=== PATIENT | male | born 1960 | race Caucasian/White ===

== ENCOUNTER 2024-07-28 11:23 | Inpatient (IN) | payer SELFPAY ==
--- NOTE | 2024-07-28 11:33 | ERPHSYRPT ---
- History of Present Illness Time Seen by Provider: 07/28/24 11:33 Source: patient, EMS Exam Limitations: no limitations Physician History: This is an obese 64-year-old white male patient who was brought in by the paramedics secondary to cough and shortness of breath that has been present for 1-1/2 weeks and symptoms were worse in the last 2 days. Patient felt his heart racing. He denies chest pain. Patient has never had a diagnosis of atrial fibrillation and is not on any anticoagulation therapy. Patient is a daily smoker of tobacco cigarettes. Patient has a history of hyperlipidemia, hypertension, diabetes, anxiety, depression, and peripheral neuropathy. Patient's heart rate is 144 bpm and is in a atrial fibrillation pattern. Timing/Duration: week(s) (1-1/2 weeks), worse (Symptoms of cough and shortness of breath worsening over the last 2 days) Severity of Dyspnea-Max: moderate Severity of Dyspnea-Current: moderate Possible Cause: no prior episodes Modifying Factors: Improves With: coughing Associated Symptoms: anxiety, cough, No chest pain/discomfort Allergies/Adverse Reactions: tramadol Adverse Reaction (Mild, Verified 09/04/16 06:21) nausea/vomiting Home Medications: Metoprolol Tartrate 25 mg [Lopressor 25MG Tab] 25 mg PO DAILY 07/09/13 [History] Hydrocodone/Acetaminophen [[place] 7.5-325 Tablet] 1 tab PO DAILY 04/10/16 [Histo ry] Trazodone HCl 100 mg PO QHS PRN 04/10/16 [History] Gabapentin 1 tab PO TID 09/03/16 [History] HYDROcodone bitartrate [Zohydro ER] 1 tab PO DAILY 09/03/16 [History] Liraglutide [Victoza 2-James] 1.8 mg SQ DAILY 09/03/16 [History] Losartan Potassium 50 mg [Cozaar 50 MG] 1 tab PO QAM 09/03/16 [History] Simvastatin 1 tab PO QHS 09/03/16 [History] Sitagliptin Phosphate [Januvia] 1 tab PO QAM 09/03/16 [History] buPROPion HCL [Bupropion HCl Sr] 1 tab PO BID 09/03/16 [History] hydroCHLOROthiazide [Hydrochlorothiazide] 1 tab PO DAILY 09/03/16 [History] Hx Influenza Vaccination/Date Given: Yes (fall 2015) Hx Pneumococcal Vaccination/Date Given: No Travel Risk - International Travel Have you traveled outside of the country in past 3 weeks: No - Emerging Infectious Disease Are you exhibiting symptoms associated with any current EIDs: Yes Symptoms: Cough: New Onset, Shortness of Breath - Review of Systems Constitutional: No Symptoms Eyes: No Symptoms Ears, Nose, & Throat: No Symptoms Respiratory: Cough, Dyspnea, Dyspnea on Exertion ([place]) Cardiac: Palpitations, No Chest Pain Abdominal/Gastrointestinal: No Symptoms Genitourinary Symptoms: No Symptoms Musculoskeletal: No Symptoms Skin: No Symptoms Neurological: No Symptoms Psychological: No Symptoms Endocrine: No Symptoms Hematologic/Lymphatic: No Symptoms Immunological/Allergic: No Symptoms All Other Systems: Reviewed and Negative - Past Medical History Pertinent Past Medical History: Yes Neurological History: Peripheral Neuropathy, Other ENT History: No Pertinent History Cardiac History: High Cholesterol, Hypertension Respiratory History: No Pertinent History Endocrine Medical History: Diabetes Type II Musculoskeletal History: Arthritis, Other GI Medical History: No Pertinent History History: No Pertinent History Psycho-Social History: No Pertinent History Male Reproductive Disorders: No Pertinent History Other Medical History: arthritis in bilateral wrist, surgery on left wrist last December to remove tendon, degenerative disk L3,4,5, Torn Right minisicus with repair and then a second surgery. has a headache daily seeing neurologist for that - Past Surgical History Past Surgical History: Yes Neuro Surgical History: No Pertinent History Cardiac: No Pertinent History Respiratory: No Pertinent History Gastrointestinal: No Pertinent History Genitourinary: No Pertinent History Musculoskeletal: Other Male Surgical History: No Pertinent History Other Surgical History: torn right miniscus repaired - Social History Smoking Status: Current every day smoker How long have you smoked: 41 yrs Exposure to second hand smoke: No Drug Use: none Patient Lives Alone: No - Nursing Vital Signs Nursing Vital Signs: Initial Vital Signs Temperature 97.6 F 07/28/24 11:25 Pulse Rate 148 H 07/28/24 11:25 Respiratory Rate 22 07/28/24 11:25 Blood Pressure 164/124 07/28/24 11:25 O2 Sat by Pulse Oximetry 97 07/28/24 11:25 Pain Scale Pain Intensity 0 - Physical Exam General Appearance: mild distress, alert, anxiety Eye Exam: PERRL/EOMI, eyes nml inspection Ears, Nose, Throat Exam: hearing grossly normal, normal ENT inspection, normal pharynx Neck Exam: normal inspection, non-tender, supple, full range of motion Respiratory Exam: airway intact, rhonchi (Right side), No chest tenderness, No respiratory distress Cardiovascular/Chest Exam: tachycardia, irregular Abdominal/Gastrointestinal Exam: soft, normal bowel sounds, No tenderness Rectal Exam: not done Extremity Exam: non-tender, normal range of motion, normal inspection Neurologic Exam: alert, oriented x 3, cooperative, debt recovery officer II-XII nml as tested, nml cerebellar function, nml station & gait, sensation nml Skin Exam: normal color, warm, dry Lymphatic Exam: No adenopathy SpO2 Interpretation: normal O2 Delivery: Room Air - Course Nursing assessment & vital signs reviewed: Yes EKG Interpreted by Me: RATE (144), A-fib, NORMAL AXIS, prolonged QT interval, NORMAL QRS, Other (No acute ischemia. QTc is 489) Ordered Tests: Active Orders 24 hr Category Date Time Status EKG-ER Only STAT Care 07/28/24 11:34 Active IV Insertion STAT Care 07/28/24 11:34 Active Pulse Oximetry (ED) STAT Care 07/28/24 11:34 Active CHEST 1 VIEW (PORTABLE) Stat Exams 07/28/24 12:13 Completed CBC W DIFF Stat Lab 07/28/24 11:50 Completed CMP Stat Lab 07/28/24 11:50 Completed D-DIMER QUANTITATIVE Stat Lab 07/28/24 11:50 Received MAGNESIUM Stat Lab 07/28/24 11:50 Completed MAGNESIUM Stat Lab 07/28/24 11:50 Completed MONO SCREEN Stat Lab 07/28/24 11:50 Completed NT PRO BNPII Stat Lab 07/28/24 11:50 Completed PROTIME WITH INR Stat Lab 07/28/24 11:50 Received TROPONIN Q4H Lab 07/28/24 11:50 Completed TROPONIN Q4H Lab 07/28/24 17:15 Ordered TROPONIN Q4H Lab 07/28/24 21:15 Ordered Medication Summary Discontinued Medications Generic Name Dose Route Start Last Admin Trade Name Freq PRN Reason Stop Dose Admin Diltiazem HCl 25 mg 07/28/24 11:52 07/28/24 11:58 Diltiazem Hcl Iv 5 Mg/Ml Vial IV 07/28/24 11:53 25 mg STAT ONE Administration Diltiazem HCl Confirm 07/28/24 11:57 Diltiazem Hcl Iv 5 Mg/Ml Vial Administered 07/28/24 11:58 Dose 50 mg IV .STK-MED ONE Furosemide 40 mg 07/28/24 13:01 07/28/24 13:05 Furosemide 40 Mg/4 Ml Vial IV 07/28/24 13:02 40 mg STAT ONE Administration Furosemide Confirm 07/28/24 13:05 Furosemide 40 Mg/4 Ml Vial Administered 07/28/24 13:06 Dose 40 mg .ROUTE .STK-MED ONE Lab/Rad Data: Laboratory Result Diagrams 07/28/24 11:50 07/28/24 11:50 Laboratory Results 07/28/24 07/28/24 07/28/24 Range/Units 12:18 11:50 11:50 WBC (4.23-9.07) x10^3/uL RBC (4.63-6.08) x10^6/uL Hgb (13.7-17.5) g/dL Hct (40.1-51.0) % MCV (79.0-92.2) fL MCH (25.7-32.2) pg MCHC (32.3-36.5) g/dL RDW (11.6-14.4) % Plt Count (163-337) x10^3/uL MPV (9.4-12.4) fL Gran % (34.0-67.9) % Immature Gran % (Auto) (0.001-0.429) % Nucleat RBC Rel Count (0.00-0.2) % Eos # (Auto) (0.04-0.54) x10^3/uL Immature Gran # (Auto) (0.001-0.031) x10^3u/L Absolute Lymphs (auto) (1.32-3.57) x10^3/uL Absolute Monos (auto) (0.30-0.82) x10^3/uL Absolute Nucleated RBC (0.00-0.012) x10^3u/L Lymphocytes % (21.8-53.1) % Monocytes % (5.3-12.2) % Eosinophils % (0.8-7.0) % Basophils % (0.2-1.2) % Absolute Granulocytes (1.78-5.38) x10^3/uL Basophils # (0.01-0.08) x10^3/uL Sodium (135-145) mmol/L Potassium (3.5-5.1) mmol/L Chloride (98-107) mmol/L Carbon Dioxide (22-30) mmol/L Anion Gap (5-15) MEQ/L BUN (9-20) mg/dL Creatinine (0.66-1.25) mg/dL Estimated GFR ML/MIN Glucose (74-106) mg/dL Calcium (8.4-10.2) mg/dL Magnesium 2.1 (1.6-2.3) mg/dL Total Bilirubin (0.2-1.3) mg/dL AST (17-59) U/L ALT (0-50) U/L Alkaline Phosphatase (38-126) U/L Troponin I < 0.012 (0.000-0.033) ng/mL NT-Pro-B Natriuret Pep (<300) pg/mL Serum Total Protein (6.3-8.2) g/dL Albumin (3.5-5.0) g/dL Monoscreen (NEGATIVE) Influenza Type A Ag NEGATIVE (NEGATIVE) Influenza Type B Ag NEGATIVE (NEGATIVE) RSV (PCR) NEGATIVE (NEGATIVE) SARS-CoV-2 (PCR) POSITIVE A (NEGATIVE) 07/28/24 07/28/24 07/28/24 Range/Units 11:50 11:50 11:50 WBC (4.23-9.07) x10^3/uL RBC (4.63-6.08) x10^6/uL Hgb (13.7-17.5) g/dL Hct (40.1-51.0) % MCV (79.0-92.2) fL MCH (25.7-32.2) pg MCHC (32.3-36.5) g/dL RDW (11.6-14.4) % Plt Count (163-337) x10^3/uL MPV (9.4-12.4) fL Gran % (34.0-67.9) % Immature Gran % (Auto) (0.001-0.429) % Nucleat RBC Rel Count (0.00-0.2) % Eos # (Auto) (0.04-0.54) x10^3/uL Immature Gran # (Auto) (0.001-0.031) x10^3u/L Absolute Lymphs (auto) (1.32-3.57) x10^3/uL Absolute Monos (auto) (0.30-0.82) x10^3/uL Absolute Nucleated RBC (0.00-0.012) x10^3u/L Lymphocytes % (21.8-53.1) % Monocytes % (5.3-12.2) % Eosinophils % (0.8-7.0) % Basophils % (0.2-1.2) % Absolute Granulocytes (1.78-5.38) x10^3/uL Basophils # (0.01-0.08) x10^3/uL Sodium 142 (135-145) mmol/L Potassium 4.0 (3.5-5.1) mmol/L Chloride 108 H (98-107) mmol/L Carbon Dioxide 29 (22-30) mmol/L Anion Gap 9.2 (5-15) MEQ/L BUN 16 (9-20) mg/dL Creatinine 0.87 (0.66-1.25) mg/dL Estimated GFR 96.4 ML/MIN Glucose 115 H (74-106) mg/dL Calcium 8.9 (8.4-10.2) mg/dL Magnesium 2.1 (1.6-2.3) mg/dL Total Bilirubin 0.60 (0.2-1.3) mg/dL AST 42 (17-59) U/L ALT 44 (0-50) U/L Alkaline Phosphatase 66 (38-126) U/L Troponin I (0.000-0.033) ng/mL NT-Pro-B Natriuret Pep 1240 (<300) pg/mL Serum Total Protein 6.7 (6.3-8.2) g/dL Albumin 3.8 (3.5-5.0) g/dL Monoscreen NEGATIVE (NEGATIVE) Influenza Type A Ag (NEGATIVE) Influenza Type B Ag (NEGATIVE) RSV (PCR) (NEGATIVE) SARS-CoV-2 (PCR) (NEGATIVE) 07/28/24 Range/Units 11:50 WBC 9.0 (4.23-9.07) x10^3/uL RBC 5.01 (4.63-6.08) x10^6/uL Hgb 15.3 (13.7-17.5) g/dL Hct 46.6 (40.1-51.0) % MCV 93.0 H (79.0-92.2) fL MCH 30.5 (25.7-32.2) pg MCHC 32.8 (32.3-36.5) g/dL RDW 12.8 (11.6-14.4) % Plt Count 213 (163-337) x10^3/uL MPV 10.1 (9.4-12.4) fL Gran % 68.9 H (34.0-67.9) % Immature Gran % (Auto) 0.2 (0.001-0.429) % Nucleat RBC Rel Count 0.0 (0.00-0.2) % Eos # (Auto) 0.19 (0.04-0.54) x10^3/uL Immature Gran # (Auto) 0.02 (0.001-0.031) x10^3u/L Absolute Lymphs (auto) 1.61 (1.32-3.57) x10^3/uL Absolute Monos (auto) 0.91 H (0.30-0.82) x10^3/uL Absolute Nucleated RBC 0.00 (0.00-0.012) x10^3u/L Lymphocytes % 17.9 L (21.8-53.1) % Monocytes % 10.1 (5.3-12.2) % Eosinophils % 2.1 (0.8-7.0) % Basophils % 0.8 (0.2-1.2) % Absolute Granulocytes 6.17 H (1.78-5.38) x10^3/uL Basophils # 0.07 (0.01-0.08) x10^3/uL Sodium (135-145) mmol/L Potassium (3.5-5.1) mmol/L Chloride (98-107) mmol/L Carbon Dioxide (22-30) mmol/L Anion Gap (5-15) MEQ/L BUN (9-20) mg/dL Creatinine (0.66-1.25) mg/dL Estimated GFR ML/MIN Glucose (74-106) mg/dL Calcium (8.4-10.2) mg/dL Magnesium (1.6-2.3) mg/dL Total Bilirubin (0.2-1.3) mg/dL AST (17-59) U/L ALT (0-50) U/L Alkaline Phosphatase (38-126) U/L Troponin I (0.000-0.033) ng/mL NT-Pro-B Natriuret Pep (<300) pg/mL Serum Total Protein (6.3-8.2) g/dL Albumin (3.5-5.0) g/dL Monoscreen (NEGATIVE) Influenza Type A Ag (NEGATIVE) Influenza Type B Ag (NEGATIVE) RSV (PCR) (NEGATIVE) SARS-CoV-2 (PCR) (NEGATIVE) - Progress Progress: improved, re-examined Air Movement: fair Progress Note: 07/28/24 12:21 My medical decision making and the assignment of moderate to high complexity is based on review of the patient's past medical history, review of the patient's medication list, reviewed patient drug allergy list, history present illness and physical findings on examination. The workup in this patient includes placement of intravenous line, infusion of Cardizem intravenously, CBC, CMP, BNP, PT/INR, troponin level, twelve-lead EKG, chest x-ray and D-dimer level. Will also order viral swabs and monotest. Differential diagnosis includes but is not limited to viral illness, myocardial infarction, congestive heart failure, pulmonary embolus, electrolyte abnormalities, arrhythmias 07/28/24 13:00 The chest x-ray was interpreted by the radiologist and I reviewed the impression. The impression states there is cardiomegaly with pulmonary edema and bibasilar effusions. Superimposed pneumonia not excluded 07/28/24 14:12 I interpreted the patient's laboratory data results. Based on the laboratory data results, patient has exacerbation of CHF, COVID-19 infection. I spoke with telehospitalist, Dr. Mason. I reviewed the patient history, chief complaint and physical findings on examination as well as the results of our workup. He accepts the patient to be placed in the operating room on a monitored bed. Blood Culture(s) Obtained: Yes Antibiotics given: No Counseled pt/family regarding: lab results, diagnosis, rad results Medical Desision Making - Discussion of managment Care discussed with:: hospitalist Reviewed:: Test results, Need for additional workup Agreed on:: decision to admit Will see patient: in hospital - Diagnostic Testing Diagnostic test were ordered, analyzed, and reviewed by me: Yes Radiological Interpretation: Reviewed by me, Teleradiologist Report - Risk of complications The pt has a high risk of morbidity or mortality based on: Decision regarding hospitilization or escalation of hosp level of care - Departure Departure Disposition: In-patient Admission Clinical Impression: Atrial fibrillation with RVR, CHF (congestive heart failure), COVID-19 virus infection Condition: Fair Critical Care Time: Yes Critical Care Time(excluding separately billable procedures): Critical 30-74 mins (60) Referrals: JOSIAS MIRANDA [NON-STAFF PHY W/O PRIVILEGES] - Follow up/PCP as directed Instructions: Heart Failure
[2024-07-28] MEDS ORDERED: Cardizem IV 50 MG/10 ML IV ONE (11:57)
[2024-07-28] MEDS: Cardizem IV 50 MG/10 ML IV ONE (11:58)
[2024-07-28 11:59] LABS: Absolute Neutrophil Ct (ANC) 6.17 x10^3/uL (1.78-5.38); BASOPHIL % 0.8 % (0.2-1.2); Basophil (Absolute #) 0.07 x10^3/uL (0.01-0.08); Eosinophil % 2.1 % (0.8-7.0); Eosinophil (Absolute #) 0.19 x10^3/uL (0.04-0.54); Hematocrit 46.6 % (40.1-51.0); Hemoglobin 15.3 g/dL (13.7-17.5); IMMATURE GRAN # 0.02 x10^3u/L (0.001-0.031); IMMATURE GRAN % 0.2 % (0.001-0.429); Lymphocyte (Absolute #) 1.61 x10^3/uL (1.32-3.57); Lymphocytes % 17.9 % (21.8-53.1); Mean Corpuscular Hemoglobin 30.5 pg (25.7-32.2); Mean Corpuscular Hgb Concent. 32.8 g/dL (32.3-36.5); Mean Platelet Volume 10.1 fL (9.4-12.4); Monocyte (Absolute #) 0.91 x10^3/uL (0.30-0.82); Monocytes % 10.1 % (5.3-12.2); Neutrophil % 68.9 % (34.0-67.9); Platelet Count 213 x10^3/uL (163-337); Red Blood Count 5.01 x10^6/uL (4.63-6.08); Red Cell Distribution Width 12.8 % (11.6-14.4)
[2024-07-28 12:12] LABS: ALBUMIN 3.8 g/dL (3.5-5.0); ANION GAP 9.2 MEQ/L (5-15); BILIRUBIN,TOTAL 0.6 mg/dL (0.2-1.3); Calcium 8.9 mg/dL (8.4-10.2); Creatinine 1 0.87 mg/dL (0.66-1.25); EST GLOMERULAR FILTRATION RATE 96.4 ML/MIN; MAGNESIUM 2.1 mg/dL (1.6-2.3); Total Protein 6.7 g/dL (6.3-8.2)
--- NOTE | 2024-07-28 12:35 | XRAY ---
Indication: Short of breath. Cough. Comparison: May 09, 2013 Portable apical lordotic chest demonstrates new cardiomegaly, pulmonary edema, and small bibasilar effusions favoring cardiac decompensation/CHF. Superimposed pneumonia not completely excluded. Bony thorax intact with mild degenerative changes.
[2024-07-28] MEDS ORDERED: Lasix 40 MG/4 ML ONE (13:05)
[2024-07-28] MEDS: Lasix 40 MG/4 ML IV ONE (13:05)
[2024-07-28 13:09] LABS: INFLUENZA A NEGATIVE (NEGATIVE); INFLUENZA B NEGATIVE (NEGATIVE); RESPIRATORY SYNCTIAL VIRUS NEGATIVE (NEGATIVE)
[2024-07-28 13:13] LABS: SARS-CoV-2 Xpert Express POSITIVE (NEGATIVE)
[2024-07-28] MEDS ORDERED: Zofran 4 MG/2 ML VIAL IV PRN (14:28)
[2024-07-28] MEDS ORDERED: TYLENOL 325 MG PO PRN (14:28)
[2024-07-28 14:38] LABS: INR 1.01 (0.8-3.0)
[2024-07-28 14:41] LABS: D-DIMER QUANTITATIVE 2.02 mg/L (0.0-0.50)
[2024-07-28] MEDS ORDERED: HYDROCODONE-CHLORPHEN ER SUSP PO PRN (15:20)
[2024-07-28] MEDS ORDERED: VENTOLIN COMMON CANISTER IH PRN (15:20)
--- NOTE | 2024-07-28 15:57 | PCM.HP ---
History of Present Illness - Chief Complaint Chief Complaint: new onset afib w rvr, covid, shortness of breath,chf Date: 07/28/24 History of Present Illness: is a 64 year old male pmhx of smoker (1.5 PPD x 50 years), CHF, [place], HTN, DMII, anxiety, and depression who presented to ED 07/28/24 with complaints of shortness of breath and the sensation of his "heart racing." Patient states his symptoms began approximately 1-2 weeks ago. He was seen by his PCP and diagnosed with bronchitis at that time and prescribed mucinex and doxycycline. His symptoms did not improve and his shortness of breath progressively got worse around . Today he felt like he could not breathe and that his heart was racing which prompted him to ED. He had an episode last night of chest tightness and substernal pain that lasted less than 15 mins. The pain was sharp with no aggravating or relieving factors. No associated symptoms. He is a rather poor historian but reports he thinks he had a heart attack about [address] Cornejo (cardiology). He had a heart cath - no stents placed. He also reports that he has a history of DMII and HTN. He decided to stop taking all prescribed medications about 7 years ago because he did not like the side effects. He has had no follow up with Cardiology in > 7 years. Denies fever, cp, abdominal pain, SIMEON, dizziness, N/V/D. No recent sick contacts. Upon arrival to ED patient was tachycardic, tachypneic, and hypoxic. He was placed on 2L NC. EKG with AFIB NORMAL AXIS, prolonged QT interval, NORMAL QRS, Other (No acute ischemia. QTc is 489). CXR demonstrates chest demonstrates new cardiomegaly, pulmonary edema, and small bibasilar effusions favoring cardiac decompensation/CHF. Superimposed pneumonia not completely excluded. Lab findings remarkable for elevated ddimer, BNP at 1240 and positive COVID. Patient was given cardizem, lasix, and DuoNeb treatment. He is feeling somewhat improved. HR now 100. Admit for AFIB RVR, COVID pneumonia, CHF exacerbation. Symptoms began over a week ago - is not a candidate for COVID specific therapies such as remdesivir/paxlovid. - Review of Systems Constitutional: No Symptoms Eyes: No Symptoms Ears, Nose, & Throat: Throat Pain Respiratory: Cough, Short Of Breath, Wheezing Cardiac: No Symptoms Abdominal/Gastrointestinal: No Symptoms Genitourinary Symptoms: No Symptoms Musculoskeletal: No Symptoms Skin: No Symptoms Neurological: No Symptoms Psychological: No Symptoms Endocrine: No Symptoms Hematologic/Lymphatic: No Symptoms Immunological/Allergic: No Symptoms Medications & Allergies Home Medications: Home Medication List No Reportable Medications [No Reported Medications] 07/28/24 [History Confirmed 07/28/24] Allergies/Adverse Reactions: Allergies Allergy/AdvReac Type Severity Reaction Status Date / Time tramadol AdvReac Mild nausea/vomi Verified 09/04/16 06:21 ting - Past Medical History Past Medical History: Yes Neurological History: Peripheral Neuropathy, Other ENT History: No Pertinent History Cardiac History: High Cholesterol, Hypertension Respiratory History: No Pertinent History Endocrine Medical History: Diabetes Type II Musculoskelatal History: Arthritis, Other GI Medical History: No Pertinent History History: No Pertinent History Pyscho-Social History: No Pertinent History Male Reproductive Disorders: No Pertinent History Comment: 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 has a headache daily seeing neurologist for that - Past Surgical History Past Surgical History: Yes Neuro Surgical History: No Pertinent History Cardiac History: Cardiac Catheterization Respiratory Surgery: No Pertinent History GI Surgical History: No Pertinent History Genitourinary Surgical Hx: No Pertinent History Musculskeletal Surgical Hx: Other Male Surgical History: No Pertinent History Other Surgical History: torn right miniscus repaired Significant Family History: heart disease, cancer - Social History Smoking Status: Current every day smoker How long have you smoked: 50 yrs Exposure to second hand smoke: No Alcohol: Weekly Drug Use: none - Social Determinants of Health Will the patient participate in the screening: Declined to provide Do you worry about a steady place to live?: No Do you have any problems with any of the following?: No known problems In the past 12 months,have you had to go without utilities?: No Have you or anyone in your house had to go without enough: No Transportation Issues: No Has anyone in your support network made you feel unsafe?: No - Physical Exam Vital Signs: Vital Signs - 24 hr Temp Pulse Resp BP BP Pulse Ox 07/28/24 14:32 98.8 F 102 H 22 154/90 98 07/28/24 14:28 98 07/28/24 14:00 101 H 23 167/115 98 07/28/24 13:31 114 H 31 H 152/116 94 L 07/28/24 13:01 89 26 H 149/96 98 07/28/24 12:30 98 H 31 H 157/97 96 07/28/24 12:01 87 28 H 139/97 96 07/28/24 11:38 97 07/28/24 11:31 138 H 34 H 144/104 98 07/28/24 11:25 97.6 F 148 H 31 H 164/124 97 General Appearance: no apparent distress Neurologic Exam: alert, oriented x 3, cooperative Eye Exam: PERRL/EOMI Ears, Nose, Throat Exam: normal ENT inspection Neck Exam: normal inspection Respiratory Exam: diminished breath sounds, crackles/rales, wheezing Cardiovascular Exam: irregular Back Exam: normal inspection Extremity Exam: normal inspection Skin Exam: normal color Results - Labs Lab/Micro Results: Lab Results-Last 24 Hours 07/28/24 07/28/24 07/28/24 Range/Units 11:50 11:50 11:50 WBC 9.0 (4.23-9.07) x10^3/uL RBC 5.01 (4.63-6.08) x10^6/uL Hgb 15.3 (13.7-17.5) g/dL Hct 46.6 (40.1-51.0) % MCV 93.0 H (79.0-92.2) fL MCH 30.5 (25.7-32.2) pg MCHC 32.8 (32.3-36.5) g/dL RDW 12.8 (11.6-14.4) % Plt Count 213 (163-337) x10^3/uL MPV 10.1 (9.4-12.4) fL Gran % 68.9 H (34.0-67.9) % Immature Gran % (Auto) 0.2 (0.001-0.429) % Nucleat RBC Rel Count 0.0 (0.00-0.2) % Eos # (Auto) 0.19 (0.04-0.54) x10^3/uL Immature Gran # (Auto) 0.02 (0.001-0.031) x10^3u/L Absolute Lymphs (auto) 1.61 (1.32-3.57) x10^3/uL Absolute Monos (auto) 0.91 H (0.30-0.82) x10^3/uL Absolute Nucleated RBC 0.00 (0.00-0.012) x10^3u/L Lymphocytes % 17.9 L (21.8-53.1) % Monocytes % 10.1 (5.3-12.2) % Eosinophils % 2.1 (0.8-7.0) % Basophils % 0.8 (0.2-1.2) % Absolute Granulocytes 6.17 H (1.78-5.38) x10^3/uL Basophils # 0.07 (0.01-0.08) x10^3/uL PT 11.0 (9.4-12.5) SECONDS INR 1.01 (0.8-3.0) D-Dimer 2.02 H* (0.0-0.50) mg/L Sodium 142 (135-145) mmol/L Potassium 4.0 (3.5-5.1) mmol/L Chloride 108 H (98-107) mmol/L Carbon Dioxide 29 (22-30) mmol/L Anion Gap 9.2 (5-15) MEQ/L BUN 16 (9-20) mg/dL Creatinine 0.87 (0.66-1.25) mg/dL Estimated GFR 96.4 ML/MIN Glucose 115 H (74-106) mg/dL Calcium 8.9 (8.4-10.2) mg/dL Magnesium 2.1 (1.6-2.3) mg/dL Total Bilirubin 0.60 (0.2-1.3) mg/dL AST 42 (17-59) U/L ALT 44 (0-50) U/L Alkaline Phosphatase 66 (38-126) U/L Troponin I (0.000-0.033) ng/mL NT-Pro-B Natriuret Pep (<300) pg/mL Serum Total Protein 6.7 (6.3-8.2) g/dL Albumin 3.8 (3.5-5.0) g/dL Monoscreen (NEGATIVE) Influenza Type A Ag (NEGATIVE) Influenza Type B Ag (NEGATIVE) RSV (PCR) (NEGATIVE) SARS-CoV-2 (PCR) (NEGATIVE) 07/28/24 07/28/24 07/28/24 Range/Units 11:50 11:50 11:50 WBC (4.23-9.07) x10^3/uL RBC (4.63-6.08) x10^6/uL Hgb (13.7-17.5) g/dL Hct (40.1-51.0) % MCV (79.0-92.2) fL MCH (25.7-32.2) pg MCHC (32.3-36.5) g/dL RDW (11.6-14.4) % Plt Count (163-337) x10^3/uL MPV (9.4-12.4) fL Gran % (34.0-67.9) % Immature Gran % (Auto) (0.001-0.429) % Nucleat RBC Rel Count (0.00-0.2) % Eos # (Auto) (0.04-0.54) x10^3/uL Immature Gran # (Auto) (0.001-0.031) x10^3u/L Absolute Lymphs (auto) (1.32-3.57) x10^3/uL Absolute Monos (auto) (0.30-0.82) x10^3/uL Absolute Nucleated RBC (0.00-0.012) x10^3u/L Lymphocytes % (21.8-53.1) % Monocytes % (5.3-12.2) % Eosinophils % (0.8-7.0) % Basophils % (0.2-1.2) % Absolute Granulocytes (1.78-5.38) x10^3/uL Basophils # (0.01-0.08) x10^3/uL PT (9.4-12.5) SECONDS INR (0.8-3.0) D-Dimer (0.0-0.50) mg/L Sodium (135-145) mmol/L Potassium (3.5-5.1) mmol/L Chloride (98-107) mmol/L Carbon Dioxide (22-30) mmol/L Anion Gap (5-15) MEQ/L BUN (9-20) mg/dL Creatinine (0.66-1.25) mg/dL Estimated GFR ML/MIN Glucose (74-106) mg/dL Calcium (8.4-10.2) mg/dL Magnesium 2.1 (1.6-2.3) mg/dL Total Bilirubin (0.2-1.3) mg/dL AST (17-59) U/L ALT (0-50) U/L Alkaline Phosphatase (38-126) U/L Troponin I (0.000-0.033) ng/mL NT-Pro-B Natriuret Pep 1240 (<300) pg/mL Serum Total Protein (6.3-8.2) g/dL Albumin (3.5-5.0) g/dL Monoscreen NEGATIVE (NEGATIVE) Influenza Type A Ag (NEGATIVE) Influenza Type B Ag (NEGATIVE) RSV (PCR) (NEGATIVE) SARS-CoV-2 (PCR) (NEGATIVE) 07/28/24 07/28/24 Range/Units 11:50 12:18 WBC (4.23-9.07) x10^3/uL RBC (4.63-6.08) x10^6/uL Hgb (13.7-17.5) g/dL Hct (40.1-51.0) % MCV (79.0-92.2) fL MCH (25.7-32.2) pg MCHC (32.3-36.5) g/dL RDW (11.6-14.4) % Plt Count (163-337) x10^3/uL MPV (9.4-12.4) fL Gran % (34.0-67.9) % Immature Gran % (Auto) (0.001-0.429) % Nucleat RBC Rel Count (0.00-0.2) % Eos # (Auto) (0.04-0.54) x10^3/uL Immature Gran # (Auto) (0.001-0.031) x10^3u/L Absolute Lymphs (auto) (1.32-3.57) x10^3/uL Absolute Monos (auto) (0.30-0.82) x10^3/uL Absolute Nucleated RBC (0.00-0.012) x10^3u/L Lymphocytes % (21.8-53.1) % Monocytes % (5.3-12.2) % Eosinophils % (0.8-7.0) % Basophils % (0.2-1.2) % Absolute Granulocytes (1.78-5.38) x10^3/uL Basophils # (0.01-0.08) x10^3/uL PT (9.4-12.5) SECONDS INR (0.8-3.0) D-Dimer (0.0-0.50) mg/L Sodium (135-145) mmol/L Potassium (3.5-5.1) mmol/L Chloride (98-107) mmol/L Carbon Dioxide (22-30) mmol/L Anion Gap (5-15) MEQ/L BUN (9-20) mg/dL Creatinine (0.66-1.25) mg/dL Estimated GFR ML/MIN Glucose (74-106) mg/dL Calcium (8.4-10.2) mg/dL Magnesium (1.6-2.3) mg/dL Total Bilirubin (0.2-1.3) mg/dL AST (17-59) U/L ALT (0-50) U/L Alkaline Phosphatase (38-126) U/L Troponin I < 0.012 (0.000-0.033) ng/mL NT-Pro-B Natriuret Pep (<300) pg/mL Serum Total Protein (6.3-8.2) g/dL Albumin (3.5-5.0) g/dL Monoscreen (NEGATIVE) Influenza Type A Ag NEGATIVE (NEGATIVE) Influenza Type B Ag NEGATIVE (NEGATIVE) RSV (PCR) NEGATIVE (NEGATIVE) SARS-CoV-2 (PCR) POSITIVE A (NEGATIVE) - Radiology Impressions Radiology Exams & Impressions: Radiology Procedures Category Date Time Status CHEST 1 VIEW (PORTABLE) Stat Exams 07/28/24 12:13 Completed CHEST WITH CONTRAST [CT] Stat Exams 07/28/24 15:27 Ordered ECHO W/2D AND DOPPLER [US] Stat Exams 07/28/24 15:20 Ordered - Other Procedures and Tests Respiratory Therapy 07/28/24 14:28 EKG REPEAT IN AM Oxygen Nasal Cannula 2 lpm Respiratory Therapy Consult ONCE 07/28/24 14:50 Smoking Cessation Education ONCE 12/27/24 15:20 Respiratory Therapy Consult ROUTINE Assessment/Plan (1) Pneumonia due to COVID-19 virus Current Visit: Yes Status: Acute Assessment & Plan: -CXR demonstrates new cardiomegaly, pulmonary edema, and small bibasilar effusions favoring cardiac decompensation/CHF. Superimposed pneumonia not completely excluded -Therapeutic lovenox -dexamethasone 6mg x 10 days -supportive care - symptoms began over a week ago -Ceftriaxone/azithromycin for possible superimposed pneumonia -CT chest pending -RT eval -Nebs prn -supplemental oxygen with goal spo2 > 92% -flutter therapy Code(s): U07.1 - COVID-19; J12.82 - PNEUMONIA DUE TO CORONAVIRUS DISEASE 2018 (2) Atrial fibrillation with RVR Current Visit: Yes Status: Acute Assessment & Plan: -EKG in the a.m. repeat -New onset -Therapeutic lovenox /metoprolol tartrate 25mg bid -Cardiology consult pending -ChadVasc score at least a 3 (patient poor historian with pmhx) -Cardizem given in ED - HR now at 100 -CTA chest -DDimer elevated -Echo when available Code(s): I48.91 - UNSPECIFIED ATRIAL FIBRILLATION (3) CHF exacerbation Current Visit: Yes Status: Acute Assessment & Plan: -CXR reviewed as stated above -CT pending -Most recent NM stress test from 07/01/2017 showed EF of 47% left ventricle hypertrophy. New small focus of pharmacologic induced reversible ischemia involving the apical inferior wall. -Patient does not take home meds or follow with cardiology -consult cardiology - appreciate recs -Echo ordered - not able to obtain as staff is unavailable until Wednesday -Received lasix in ED -continue lasix 40mg IV daily -No edema on exam -BNP at 1240 Code(s): I50.9 - HEART FAILURE, UNSPECIFIED (4) HTN (hypertension) Current Visit: Yes Status: Acute Assessment & Plan: -BP stable - patient does not take home meds - started on metoprolol for AFIB - will monitor and adjust as needed Code(s): I10 - ESSENTIAL (PRIMARY) HYPERTENSION (5) Diabetes mellitus Current Visit: Yes Status: Acute Assessment & Plan: -Patient states he was diagnosed and placed on meds years ago but no longer takes anything - will obtain A1c -ADA diet -accuchecks - SSI VTE: lovenox PPI: protonix Dispo: 2-3 days Code Status: Full code Code(s): E11.9 - TYPE 2 DIABETES MELLITUS WITHOUT COMPLICATIONS Telemedicine Encounter - Telemedicine Encounter Telemedicine Encounter: "The entirety of this encounter was performed via Telemedicine" This visit was performed using real-time audio and video connection between my location and thepatients locationwith the assistance of a surrogateat the patients location. Written or verbal consent was obtained from the patient/guardian to perform this visit [facility] technology. Any patient questions regarding the telemedicine interaction were answered.
[2024-07-28] MEDS: Lopressor 25MG Tab PO ONE (16:17)
[2024-07-28] MEDS: ROCEPHIN 1 GM / 100 ML NaCl 1 GM/100 ML IVPB IV SCH (16:17)
[2024-07-28] MEDS: Nicoderm CQ 21 MG TOP SCH (16:17)
[2024-07-28] MEDS: ENOXAPARIN SODIUM SQ SCH (16:18)
[2024-07-28 16:21] LABS: PROCALCITONIN 0.06 ng/mL (0.030-0.080)
--- NOTE | 2024-07-28 17:10 | XRAY ---
Indication: Short of breath. Elevated d-dimer. Multiple contiguous axial images obtained through the chest using 80 cc Isovue 370 contrast and PE protocol. Comparison: CT chest with/without contrast June 05, 2013. Good opacification pulmonary arteries. However mild diffuse respiration artifact limits evaluation of the more distal lobar and segmental branches. No obvious central pulmonary embolus. Heart is now enlarged. Aorta minimally arteriosclerotic without aneurysm/dissection. Again a few small calcified/noncalcified mediastinal and right hilar nodes. No pathologic mediastinal/hilar lymphadenopathy. Lungs demonstrates new pulmonary edema and tiny bilateral effusions right greater than left. Elsewhere pulmonary emphysema and mild bibasilar subsegmental atelectasis/scarring. Stable subpleural right lower lobe calcified granuloma. Anterior left upper lobe demonstrates new 5-6 mm [id number] noncalcified nodules (image 30, series 3), possibly granulomatous. Bony thorax intact with mild degenerative changes throughout spine. Limited upper abdomen demonstrates mild fatty liver, 2.6 cm right upper pole renal cyst, and tiny splenic calcified granulomas. Impression: 1. Pulmonary embolus evaluation limited by respiration artifact. No obvious central pulmonary embolus. 2. New cardiomegaly, pulmonary edema, and tiny bilateral effusions as reported on same-day chest radiograph. Rule out cardiac decomposition/CHF. 3. New left upper lobe [id number] noncalcified micronodules. Findings possibly granulomatous as there is evidence old granulomatous disease elsewhere. Consider follow-up per Fleischner guidelines. 4. Chronic findings including pulmonary emphysema, arteriosclerotic disease, degenerative spondylosis, fatty liver, right renal cyst, and old granulomatous disease.
[2024-07-28] MEDS: Zithromax 500 MG/ 250 ML NaCl Premix 500 MG/250 ML IVPB IV SCH (17:38)
[2024-07-28] MEDS ORDERED: DUONEB 0.5-3 MG/3 ml Neb IH SCH (19:00)
[2024-07-28 21:42] LABS: Appearance Clear (Clear); Bacteria None Seen /HPF (None Seen); Bilirubin Negative (Negative); Blood Negative (Negative); Epithelial Cells None Seen /HPF (None Seen); Glucose, Urine Negative (Negative); Hyaline Casts NONE SEEN /LPF (0-2); Ketones Negative (Negative); Leukocyte Esterase Negative (Negative); Nitrite Negative (Negative); Protein,Urine Dip Negative (Negative); RBC 0-2 /HPF (0-5); Specific Gravity >=1.030 (1.005-1.030); Urobilinogen 0.2 mg/dL (0.2); WBC 0-2 /HPF (0-5)
[2024-07-28 21:53] LABS: Amphetamine,Urine NEGATIVE (NEGATIVE); Barbiturate,Urine NEGATIVE (NEGATIVE); Benzodiazepine,Urine NEGATIVE (NEGATIVE); Cocaine,Urine NEGATIVE (NEGATIVE); Opiate,Urine NEGATIVE (NEGATIVE); PCP,Urine NEGATIVE (NEGATIVE); THC,Urine NEGATIVE (NEGATIVE)
[2024-07-28 21:55] LABS: Methadone,Urine NEGATIVE (NEGATIVE)
[2024-07-28] MEDS: Lopressor 25MG Tab PO SCH (21:58)
[2024-07-28] MEDS: Lasix 40 MG/4 ML IV SCH (21:58)
--- NOTE | 2024-07-29 00:10 | PCM.CONS ---
History of Present Illness - Date of Consult Date of Encounter: 07/29/24 Consulting Driller Multiple Spindle: PARIS MOSQUERA MD Requesting Provider: Attending Provider: REYNALDO AMES MD Primary Care Provider: PCP: NO FAMILY DOCTOR - Consult Narrative Reason for Consult: Afib, CHF HPI: Patient is a 64M with no significant pmh presenting to the hospital with worsening viral syndrome x 10 days. He had worsening cough and shortness of breath as well. This AM he had chest tightness and decided to come to the hospital. In the ED he was diagnosed with COVID. He is out of the window for treatment. He was found to be in AFRVR and started on metoprolol and lovenox. CT chest showed cardiomegaly and bilateral pleural effusions. To his knowledge he has never had an MO or ischemic heart disease. Denies fam hx of chf. He had 1+ pitting edema to the ankles. cc:: The requesting physician will be sent a copy of the consult. Review of Systems - Review of Systems All systems: as per HPI - Past Medical History Past Medical History: Yes Neurological History: Peripheral Neuropathy, Other ENT History: No Pertinent History Cardiac History: High Cholesterol, Hypertension Respiratory History: No Pertinent History Endocrine Medical History: Diabetes Type II Musculoskelatal History: Arthritis, Other GI Medical History: No Pertinent History History: No Pertinent History Pyscho-Social History: No Pertinent History Male Reproductive Disorders: No Pertinent History Comment: 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 has a headache daily seeing neurologist for that - Past Surgical History Past Surgical History: Yes Neuro Surgical History: No Pertinent History Cardiac History: Cardiac Catheterization Respiratory Surgery: No Pertinent History GI Surgical History: No Pertinent History Genitourinary Surgical Hx: No Pertinent History Musculskeletal Surgical Hx: Other Male Surgical History: No Pertinent History Other Surgical History: torn right miniscus repaired Significant Family History: heart disease, cancer - Social History Smoking Status: Current every day smoker How long have you smoked: 50 yrs Exposure to second hand smoke: No Alcohol: Weekly Drug Use: none - Social Determinants of Health Will the patient participate in the screening: Declined to provide Do you worry about a steady place to live?: No Do you have any problems with any of the following?: No known problems In the past 12 months,have you had to go without utilities?: No Have you or anyone in your house had to go without enough: No Transportation Issues: No Has anyone in your support network made you feel unsafe?: No Medications & Allergies Home Medications: Home Medication List No Reportable Medications [No Reported Medications] 07/28/24 [History Confirmed 07/28/24] Allergies/Adverse Reactions: Allergies Allergy/AdvReac Type Severity Reaction Status Date / Time tramadol AdvReac Mild nausea/vomi Verified 09/04/16 06:21 ting Exam - Vitals Vital Signs: Vital Signs - 24 hr Temp Pulse Resp BP BP Pulse Ox 07/28/24 20:00 98.6 F 105 H 20 125/66 100 07/28/24 19:09 96 07/28/24 16:00 98.2 F 110 H 22 163/123 98 07/28/24 15:41 100 H 18 98 07/28/24 14:32 98.8 F 102 H 22 154/90 98 07/28/24 14:28 98 07/28/24 14:00 101 H 23 167/115 98 07/28/24 13:31 114 H 31 H 152/116 94 L 07/28/24 13:01 89 26 H 149/96 98 07/28/24 12:30 98 H 31 H 157/97 96 07/28/24 12:01 87 28 H 139/97 96 07/28/24 11:38 97 07/28/24 11:31 138 H 34 H 144/104 98 07/28/24 11:25 97.6 F 148 H 31 H 164/124 97 General:: alert and oriented x 4, no acute distress HEENT: PERRLA, EOMI Cardiovascular Exam: other (irregularly irregular, tachycardic) Respiratory Exam: respiratory distress SpO2: 100 Extremity Exam: pedal edema Results Vital Signs: Vital Signs - 24 hr Temp Pulse Resp BP BP Pulse Ox 07/28/24 20:00 98.6 F 105 H 20 125/66 100 07/28/24 19:09 96 07/28/24 16:00 98.2 F 110 H 22 163/123 98 07/28/24 15:41 100 H 18 98 07/28/24 14:32 98.8 F 102 H 22 154/90 98 07/28/24 14:28 98 07/28/24 14:00 101 H 23 167/115 98 07/28/24 13:31 114 H 31 H 152/116 94 L 07/28/24 13:01 89 26 H 149/96 98 07/28/24 12:30 98 H 31 H 157/97 96 07/28/24 12:01 87 28 H 139/97 96 07/28/24 11:38 97 07/28/24 11:31 138 H 34 H 144/104 98 07/28/24 11:25 97.6 F 148 H 31 H 164/124 97 Pain Assessment - Last Documented Pain Intensity 0 Intake and Output: Intake & Output 07/26/24 07/27/24 07/28/24 07/29/24 11:59 11:59 11:59 11:59 Intake Total 240 Balance 240 Weight 117.027 kg 118.7 kg LAB: I have reviewed the Labs in [facility]. Radiology Exams: Radiology Procedures Category Date Time Status CHEST 1 VIEW (PORTABLE) Stat Exams 07/28/24 12:13 Completed CHEST WITH CONTRAST [CT] Stat Exams 07/28/24 15:27 Completed ECHO W/2D AND DOPPLER [US] Stat Exams 07/31/24 15:[address] Chest with cardiomegaly, pulm vasc congestion, bilateral pleureal effusion. - ECHO Echo: pending Assessment & Plan (1) Atrial fibrillation with RVR Current Visit: Yes Status: Acute Assessment & Plan: New onset, no hx of AFib in the past. -Likely triggered by current covid infection - CHADS-VASC = 2 - Switch lovenox to eliquis 5 mg bid - check echo - check tsh - monitor on tele - continue metoprolol for rate control rather than anti arrhythmic. Acute heart failure exacerbation - dilated cardiomyopathy. - unclear etiology - IV Lasix 40 mg BID - check lyes, k Code(s): I48.91 - UNSPECIFIED ATRIAL FIBRILLATION (2) CHF (congestive heart failure) Current Visit: Yes Status: Acute Qualifiers: Heart failure type: unspecified Code(s): I50.9 - HEART FAILURE, UNSPECIFIED (3) HTN (hypertension) Current Visit: Yes Status: Acute Code(s): I10 - ESSENTIAL (PRIMARY) HYPERTENSION - Encounter Encounter: "The entirety of this encounter was performed via Telemedicine using audio and visual "
[2024-07-29] MEDS: ENOXAPARIN SODIUM SQ SCH (05:54)
[2024-07-29 06:25] LABS: Absolute Neutrophil Ct (ANC) 6.31 x10^3/uL (1.78-5.38); BASOPHIL % 0.6 % (0.2-1.2); Basophil (Absolute #) 0.06 x10^3/uL (0.01-0.08); Eosinophil % 2.3 % (0.8-7.0); Eosinophil (Absolute #) 0.23 x10^3/uL (0.04-0.54); Hemoglobin 15.8 g/dL (13.7-17.5); IMMATURE GRAN # 0.02 x10^3u/L (0.001-0.031); IMMATURE GRAN % 0.2 % (0.001-0.429); Lymphocyte (Absolute #) 2.35 x10^3/uL (1.32-3.57); Lymphocytes % 23.8 % (21.8-53.1); Mean Cell Volume 92.7 fL (79.0-92.2); Mean Corpuscular Hemoglobin 30.5 pg (25.7-32.2); Mean Corpuscular Hgb Concent. 32.9 g/dL (32.3-36.5); Mean Platelet Volume 10.4 fL (9.4-12.4); Monocyte (Absolute #) 0.89 x10^3/uL (0.30-0.82); Neutrophil % 64.1 % (34.0-67.9); Platelet Count 230 x10^3/uL (163-337); Red Blood Count 5.18 x10^6/uL (4.63-6.08); White Blood Count 9.9 x10^3/uL (4.23-9.07)
[2024-07-29 06:56] LABS: ALBUMIN 3.9 g/dL (3.5-5.0); ANION GAP 8.8 MEQ/L (5-15); BILIRUBIN,TOTAL 0.8 mg/dL (0.2-1.3); Calcium 9.4 mg/dL (8.4-10.2); Creatinine 1 0.91 mg/dL (0.66-1.25); EST GLOMERULAR FILTRATION RATE 94.1 ML/MIN; Potassium 4.2 mmol/L (3.5-5.1); Total Protein 6.8 g/dL (6.3-8.2)
[2024-07-29] MEDS ORDERED: Lasix 40 MG/4 ML IV SCH (10:00)
[2024-07-29] MEDS: DECADRON 10MG INJ. IV SCH (10:48)
[2024-07-29] MEDS: PROTONIX 40 MG IV IV SCH (10:50)
[2024-07-29] MEDS: Lopressor 25MG Tab PO ONE (10:50)
--- NOTE | 2024-07-29 11:48 | PCM.NOTE ---
Date and Time: 07/29/241137 Subjective Assessment: Patient feels much improved. He is not having palpitations even though HR is up to 150 at times. Dyspnea and cough improved. He denies chest pain. No abdominal pain, nausea or vomiting. No problems with bowels or bladder. - Review of Systems Constitutional: No Symptoms, No Fever, No Chills Eyes: No Symptoms Ears, Nose, & Throat: No Symptoms Respiratory: Cough, Short Of Breath Cardiac: No Symptoms, No Chest Pain, No Edema, No Palpitations, No Syncope Abdominal/Gastrointestinal: No Symptoms, No Abdominal Pain, No Nausea, No Vomiting, No Diarrhea Genitourinary Symptoms: No Symptoms, No Dysuria, No Frequency, No Hematuria Musculoskeletal: No Symptoms Skin: No Symptoms Neurological: No Symptoms Psychological: No Symptoms Endocrine: No Symptoms Hematologic/Lymphatic: No Symptoms Immunological/Allergic: No Symptoms Objective Exam General Appearance: no apparent distress Neurologic Exam: alert, oriented x 3, cooperative Skin Exam: normal color, warm, dry Eye Exam: PERRL, EOMI, eyes nml inspection Ears, Nose, Throat Exam: normal ENT inspection Neck Exam: normal inspection, non-tender, supple Lymphatic Exam: No adenopathy Respiratory Exam: wheezing Cardiovascular Exam: normal heart sounds, tachycardia, irregular Gastrointestinal/Abdomen Exam: soft, normal bowel sounds, No tenderness, No distention, No guarding Extremity Exam: normal inspection Back Exam: normal inspection Male Genitalia Exam: deferred Rectal Exam: deferred Objective Data Vital Signs: Vital Signs - 24 hr Temp Pulse Resp BP BP BP Pulse Ox 07/29/24 07:52 98.2 F 102 H 20 158/84 95 07/29/24 07:31 95 07/29/24 04:00 98.1 F 115 H 20 135/90 96 07/29/24 00:14 100 07/29/24 00:00 97.8 F 108 H 18 154/90 97 07/28/24 20:00 98.6 F 105 H 20 125/66 100 07/28/24 19:09 96 07/28/24 16:00 98.2 F 110 H 22 163/123 98 07/28/24 15:41 100 H 18 98 07/28/24 14:32 98.8 F 102 H 22 154/90 98 07/28/24 14:28 98 07/28/24 14:00 101 H 23 167/115 98 12/27/24 13:31 114 H 31 H 152/116 94 L 07/28/24 13:01 89 26 H 149/96 98 07/28/24 12:30 98 H 31 H 157/97 96 07/28/24 12:01 87 28 H 139/97 96 Pain Assessment - Last Documented Pain Intensity 0 Intake and Output: Intake & Output 07/26/24 07/27/24 07/28/24 07/29/24 11:59 11:59 11:59 11:59 Intake Total 360 Output Total 360 Balance 0 Weight 117.027 kg 118.7 kg Lab Results: Lab Results-Last 24 Hours 07/28/24 07/28/24 07/28/24 Range/Units 11:50 11:50 11:50 WBC 9.0 (4.23-9.07) x10^3/uL RBC 5.01 (4.63-6.08) x10^6/uL Hgb 15.3 (13.7-17.5) g/dL Hct 46.6 (40.1-51.0) % MCV 93.0 H (79.0-92.2) fL MCH 30.5 (25.7-32.2) pg MCHC 32.8 (32.3-36.5) g/dL RDW 12.8 (11.6-14.4) % Plt Count 213 (163-337) x10^3/uL MPV 10.1 (9.4-12.4) fL Gran % 68.9 H (34.0-67.9) % Immature Gran % (Auto) 0.2 (0.001-0.429) % Nucleat RBC Rel Count 0.0 (0.00-0.2) % Eos # (Auto) 0.19 (0.04-0.54) x10^3/uL Immature Gran # (Auto) 0.02 (0.001-0.031) x10^3u/L Absolute Lymphs (auto) 1.61 (1.32-3.57) x10^3/uL Absolute Monos (auto) 0.91 H (0.30-0.82) x10^3/uL Absolute Nucleated RBC 0.00 (0.00-0.012) x10^3u/L Lymphocytes % 17.9 L (21.8-53.1) % Monocytes % 10.1 (5.3-12.2) % Eosinophils % 2.1 (0.8-7.0) % Basophils % 0.8 (0.2-1.2) % Absolute Granulocytes 6.17 H (1.78-5.38) x10^3/uL Basophils # 0.07 (0.01-0.08) x10^3/uL PT 11.0 (9.4-12.5) SECONDS INR 1.01 (0.8-3.0) D-Dimer 2.02 H* (0.0-0.50) mg/L Sodium 142 (135-145) mmol/L Potassium 4.0 (3.5-5.1) mmol/L Chloride 108 H (98-107) mmol/L Carbon Dioxide 29 (22-30) mmol/L Anion Gap 9.2 (5-15) MEQ/L BUN 16 (9-20) mg/dL Creatinine 0.87 (0.66-1.25) mg/dL Estimated GFR 96.4 ML/MIN Glucose 115 H (74-106) mg/dL POC Glucometer (74 to 106) mg/dL Hemoglobin A1c (4.5-6.0) % Calcium 8.9 (8.4-10.2) mg/dL Magnesium 2.1 (1.6-2.3) mg/dL Total Bilirubin 0.60 (0.2-1.3) mg/dL AST 42 (17-59) U/L ALT 44 (0-50) U/L Alkaline Phosphatase 66 (38-126) U/L Troponin I (0.000-0.033) ng/mL NT-Pro-B Natriuret Pep (<300) pg/mL Serum Total Protein 6.7 (6.3-8.2) g/dL Albumin 3.8 (3.5-5.0) g/dL Triglycerides (30-150) mg/dL Cholesterol (50-200) mg/dL LDL Cholesterol (30-100) mg/dL HDL Cholesterol (40-60) mg/dL Heart Disease Risk Ratio Procalcitonin (0.030-0.080) ng/mL Free T3 pg/mL (2.77-5.27) pg/mL TSH 3rd Generation (0.470-4.680) mIU/L Urine Color (Yellow) Urine Appearance (Clear) Urine pH (4.6-8.0) Ur Specific [place] (1.005-1.030) Urine Protein (Negative) Urine Glucose (UA) (Negative) mg/dL Urine Ketones (Negative) Urine Blood (Negative) Urine Nitrite (Negative) Urine Bilirubin (Negative) Urine Urobilinogen (0.2) mg/dL Ur Leukocyte Esterase (Negative) U Hyaline Cast (Auto) (0-2) /LPF Urine Microscopic RBC (0-5) /HPF Urine Microscopic WBC (0-5) /HPF Ur Epithelial Cells (None Seen) /HPF Urine Bacteria (None Seen) /HPF Urine Culture Reflexed (NO) Urine Opiates Level (NEGATIVE) Ur Methadone (NEGATIVE) Urine Barbiturates (NEGATIVE) Ur Phencyclidine (PCP) (NEGATIVE) Urine Amphetamine (NEGATIVE) U Benzodiazepine Level (NEGATIVE) Urine Cocaine (NEGATIVE) Urine Marijuana (THC) (NEGATIVE) Monoscreen (NEGATIVE) Influenza Type A Ag (NEGATIVE) Influenza Type B Ag (NEGATIVE) RSV (PCR) (NEGATIVE) SARS-CoV-2 (PCR) (NEGATIVE) 07/28/24 07/28/24 07/28/24 Range/Units 11:50 11:50 11:50 WBC (4.23-9.07) x10^3/uL RBC (4.63-6.08) x10^6/uL Hgb (13.7-17.5) g/dL Hct (40.1-51.0) % MCV (79.0-92.2) fL MCH (25.7-32.2) pg MCHC (32.3-36.5) g/dL RDW (11.6-14.4) % Plt Count (163-337) x10^3/uL MPV (9.4-12.4) fL Gran % (34.0-67.9) % Immature Gran % (Auto) (0.001-0.429) % Nucleat RBC Rel Count (0.00-0.2) % Eos # (Auto) (0.04-0.54) x10^3/uL Immature Gran # (Auto) (0.001-0.031) x10^3u/L Absolute Lymphs (auto) (1.32-3.57) x10^3/uL Absolute Monos (auto) (0.30-0.82) x10^3/uL Absolute Nucleated RBC (0.00-0.012) x10^3u/L Lymphocytes % (21.8-53.1) % Monocytes % (5.3-12.2) % Eosinophils % (0.8-7.0) % Basophils % (0.2-1.2) % Absolute Granulocytes (1.78-5.38) x10^3/uL Basophils # (0.01-0.08) x10^3/uL PT (9.4-12.5) SECONDS INR (0.8-3.0) D-Dimer (0.0-0.50) mg/L Sodium (135-145) mmol/L Potassium (3.5-5.1) mmol/L Chloride (98-107) mmol/L Carbon Dioxide (22-30) mmol/L Anion Gap (5-15) MEQ/L BUN (9-20) mg/dL Creatinine (0.66-1.25) mg/dL Estimated GFR ML/MIN Glucose (74-106) mg/dL POC Glucometer (74 to 106) mg/dL Hemoglobin A1c (4.5-6.0) % Calcium (8.4-10.2) mg/dL Magnesium 2.1 (1.6-2.3) mg/dL Total Bilirubin (0.2-1.3) mg/dL AST (17-59) U/L ALT (0-50) U/L Alkaline Phosphatase (38-126) U/L Troponin I (0.000-0.033) ng/mL NT-Pro-B Natriuret Pep 1240 (<300) pg/mL Serum Total Protein (6.3-8.2) g/dL Albumin (3.5-5.0) g/dL Triglycerides (30-150) mg/dL Cholesterol (50-200) mg/dL LDL Cholesterol (30-100) mg/dL HDL Cholesterol (40-60) mg/dL Heart Disease Risk Ratio Procalcitonin (0.030-0.080) ng/mL Free T3 pg/mL (2.77-5.27) pg/mL TSH 3rd Generation (0.470-4.680) mIU/L Urine Color (Yellow) Urine Appearance (Clear) Urine pH (4.6-8.0) Ur Specific [place] (1.005-1.030) Urine Protein (Negative) Urine Glucose (UA) (Negative) mg/dL Urine Ketones (Negative) Urine Blood (Negative) Urine Nitrite (Negative) Urine Bilirubin (Negative) Urine Urobilinogen (0.2) mg/dL Ur Leukocyte Esterase (Negative) U Hyaline Cast (Auto) (0-2) /LPF Urine Microscopic RBC (0-5) /HPF Urine Microscopic WBC (0-5) /HPF Ur Epithelial Cells (None Seen) /HPF Urine Bacteria (None Seen) /HPF Urine Culture Reflexed (NO) Urine Opiates Level (NEGATIVE) Ur Methadone (NEGATIVE) Urine Barbiturates (NEGATIVE) Ur Phencyclidine (PCP) (NEGATIVE) Urine Amphetamine (NEGATIVE) U Benzodiazepine Level (NEGATIVE) Urine Cocaine (NEGATIVE) Urine Marijuana (THC) (NEGATIVE) Monoscreen NEGATIVE (NEGATIVE) Influenza Type A Ag (NEGATIVE) Influenza Type B Ag (NEGATIVE) RSV (PCR) (NEGATIVE) SARS-CoV-2 (PCR) (NEGATIVE) 07/28/24 07/28/24 07/28/24 Range/Units 11:50 12:18 15:42 WBC (4.23-9.07) x10^3/uL RBC (4.63-6.08) x10^6/uL Hgb (13.7-17.5) g/dL Hct (40.1-51.0) % MCV (79.0-92.2) fL MCH (25.7-32.2) pg MCHC (32.3-36.5) g/dL RDW (11.6-14.4) % Plt Count (163-337) x10^3/uL MPV (9.4-12.4) fL Gran % (34.0-67.9) % Immature Gran % (Auto) (0.001-0.429) % Nucleat RBC Rel Count (0.00-0.2) % Eos # (Auto) (0.04-0.54) x10^3/uL Immature Gran # (Auto) (0.001-0.031) x10^3u/L Absolute Lymphs (auto) (1.32-3.57) x10^3/uL Absolute Monos (auto) (0.30-0.82) x10^3/uL Absolute Nucleated RBC (0.00-0.012) x10^3u/L Lymphocytes % (21.8-53.1) % Monocytes % (5.3-12.2) % Eosinophils % (0.8-7.0) % Basophils % (0.2-1.2) % Absolute Granulocytes (1.78-5.38) x10^3/uL Basophils # (0.01-0.08) x10^3/uL PT (9.4-12.5) SECONDS INR (0.8-3.0) D-Dimer (0.0-0.50) mg/L Sodium (135-145) mmol/L Potassium (3.5-5.1) mmol/L Chloride (98-107) mmol/L Carbon Dioxide (22-30) mmol/L Anion Gap (5-15) MEQ/L BUN (9-20) mg/dL Creatinine (0.66-1.25) mg/dL Estimated GFR ML/MIN Glucose (74-106) mg/dL POC Glucometer (74 to 106) mg/dL Hemoglobin A1c (4.5-6.0) % Calcium (8.4-10.2) mg/dL Magnesium (1.6-2.3) mg/dL Total Bilirubin (0.2-1.3) mg/dL AST (17-59) U/L ALT (0-50) U/L Alkaline Phosphatase (38-126) U/L Troponin I < 0.012 < 0.012 (0.000-0.033) ng/mL NT-Pro-B Natriuret Pep (<300) pg/mL Serum Total Protein (6.3-8.2) g/dL Albumin (3.5-5.0) g/dL Triglycerides (30-150) mg/dL Cholesterol (50-200) mg/dL LDL Cholesterol (30-100) mg/dL HDL Cholesterol (40-60) mg/dL Heart Disease Risk Ratio Procalcitonin (0.030-0.080) ng/mL Free T3 pg/mL (2.77-5.27) pg/mL TSH 3rd Generation (0.470-4.680) mIU/L Urine Color (Yellow) Urine Appearance (Clear) Urine pH (4.6-8.0) Ur Specific [place] (1.005-1.030) Urine Protein (Negative) Urine Glucose (UA) (Negative) mg/dL Urine Ketones (Negative) Urine Blood (Negative) Urine Nitrite (Negative) Urine Bilirubin (Negative) Urine Urobilinogen (0.2) mg/dL Ur Leukocyte Esterase (Negative) U Hyaline Cast (Auto) (0-2) /LPF Urine Microscopic RBC (0-5) /HPF Urine Microscopic WBC (0-5) /HPF Ur Epithelial Cells (None Seen) /HPF Urine Bacteria (None Seen) /HPF Urine Culture Reflexed (NO) Urine Opiates Level (NEGATIVE) Ur Methadone (NEGATIVE) Urine Barbiturates (NEGATIVE) Ur Phencyclidine (PCP) (NEGATIVE) Urine Amphetamine (NEGATIVE) U Benzodiazepine Level (NEGATIVE) Urine Cocaine (NEGATIVE) Urine Marijuana (THC) (NEGATIVE) Monoscreen (NEGATIVE) Influenza Type A Ag NEGATIVE (NEGATIVE) Influenza Type B Ag NEGATIVE (NEGATIVE) RSV (PCR) NEGATIVE (NEGATIVE) SARS-CoV-2 (PCR) POSITIVE A (NEGATIVE) 07/28/24 07/28/24 07/28/24 Range/Units 15:42 15:42 15:49 WBC (4.23-9.07) x10^3/uL RBC (4.63-6.08) x10^6/uL Hgb (13.7-17.5) g/dL Hct (40.1-51.0) % MCV (79.0-92.2) fL MCH (25.7-32.2) pg MCHC (32.3-36.5) g/dL RDW (11.6-14.4) % Plt Count (163-337) x10^3/uL MPV (9.4-12.4) fL Gran % (34.0-67.9) % Immature Gran % (Auto) (0.001-0.429) % Nucleat RBC Rel Count (0.00-0.2) % Eos # (Auto) (0.04-0.54) x10^3/uL Immature Gran # (Auto) (0.001-0.031) x10^3u/L Absolute Lymphs (auto) (1.32-3.57) x10^3/uL Absolute Monos (auto) (0.30-0.82) x10^3/uL Absolute Nucleated RBC (0.00-0.012) x10^3u/L Lymphocytes % (21.8-53.1) % Monocytes % (5.3-12.2) % Eosinophils % (0.8-7.0) % Basophils % (0.2-1.2) % Absolute Granulocytes (1.78-5.38) x10^3/uL Basophils # (0.01-0.08) x10^3/uL PT (9.4-12.5) SECONDS INR (0.8-3.0) D-Dimer 2.87 H* (0.0-0.50) mg/L Sodium (135-145) mmol/L Potassium (3.5-5.1) mmol/L Chloride (98-107) mmol/L Carbon Dioxide (22-30) mmol/L Anion Gap (5-15) MEQ/L BUN (9-20) mg/dL Creatinine (0.66-1.25) mg/dL Estimated GFR ML/MIN Glucose (74-106) mg/dL POC Glucometer (74 to 106) mg/dL Hemoglobin A1c (4.5-6.0) % Calcium (8.4-10.2) mg/dL Magnesium 2.0 (1.6-2.3) mg/dL Total Bilirubin (0.2-1.3) mg/dL AST (17-59) U/L ALT (0-50) U/L Alkaline Phosphatase (38-126) U/L Troponin I (0.000-0.033) ng/mL NT-Pro-B Natriuret Pep (<300) pg/mL Serum Total Protein (6.3-8.2) g/dL Albumin (3.5-5.0) g/dL Triglycerides (30-150) mg/dL Cholesterol (50-200) mg/dL LDL Cholesterol (30-100) mg/dL HDL Cholesterol (40-60) mg/dL Heart Disease Risk Ratio Procalcitonin 0.060 (0.030-0.080) ng/mL Free T3 pg/mL (2.77-5.27) pg/mL TSH 3rd Generation < 0.015 L (0.470-4.680) mIU/L Urine Color (Yellow) Urine Appearance (Clear) Urine pH (4.6-8.0) Ur Specific [place] (1.005-1.030) Urine Protein (Negative) Urine Glucose (UA) (Negative) mg/dL Urine Ketones (Negative) Urine Blood (Negative) Urine Nitrite (Negative) Urine Bilirubin (Negative) Urine Urobilinogen (0.2) mg/dL Ur Leukocyte Esterase (Negative) U Hyaline Cast (Auto) (0-2) /LPF Urine Microscopic RBC (0-5) /HPF Urine Microscopic WBC (0-5) /HPF Ur Epithelial Cells (None Seen) /HPF Urine Bacteria (None Seen) /HPF Urine Culture Reflexed (NO) Urine Opiates Level (NEGATIVE) Ur Methadone (NEGATIVE) Urine Barbiturates (NEGATIVE) Ur Phencyclidine (PCP) (NEGATIVE) Urine Amphetamine (NEGATIVE) U Benzodiazepine Level (NEGATIVE) Urine Cocaine (NEGATIVE) Urine Marijuana (THC) (NEGATIVE) Monoscreen (NEGATIVE) Influenza Type A Ag (NEGATIVE) Influenza Type B Ag (NEGATIVE) RSV (PCR) (NEGATIVE) SARS-CoV-2 (PCR) (NEGATIVE) 07/28/24 07/28/24 07/28/24 Range/Units 16:20 20:46 21:00 WBC (4.23-9.07) x10^3/uL RBC (4.63-6.08) x10^6/uL Hgb (13.7-17.5) g/dL Hct (40.1-51.0) % MCV (79.0-92.2) fL MCH (25.7-32.2) pg MCHC (32.3-36.5) g/dL RDW (11.6-14.4) % Plt Count (163-337) x10^3/uL MPV (9.4-12.4) fL Gran % (34.0-67.9) % Immature Gran % (Auto) (0.001-0.429) % Nucleat RBC Rel Count (0.00-0.2) % Eos # (Auto) (0.04-0.54) x10^3/uL Immature Gran # (Auto) (0.001-0.031) x10^3u/L Absolute Lymphs (auto) (1.32-3.57) x10^3/uL Absolute Monos (auto) (0.30-0.82) x10^3/uL Absolute Nucleated RBC (0.00-0.012) x10^3u/L Lymphocytes % (21.8-53.1) % Monocytes % (5.3-12.2) % Eosinophils % (0.8-7.0) % Basophils % (0.2-1.2) % Absolute Granulocytes (1.78-5.38) x10^3/uL Basophils # (0.01-0.08) x10^3/uL PT (9.4-12.5) SECONDS INR (0.8-3.0) D-Dimer (0.0-0.50) mg/L Sodium (135-145) mmol/L Potassium (3.5-5.1) mmol/L Chloride (98-107) mmol/L Carbon Dioxide (22-30) mmol/L Anion Gap (5-15) MEQ/L BUN (9-20) mg/dL Creatinine (0.66-1.25) mg/dL Estimated GFR ML/MIN Glucose (74-106) mg/dL POC Glucometer 97 168 H (74 to 106) mg/dL Hemoglobin A1c (4.5-6.0) % Calcium (8.4-10.2) mg/dL Magnesium (1.6-2.3) mg/dL Total Bilirubin (0.2-1.3) mg/dL AST (17-59) U/L ALT (0-50) U/L Alkaline Phosphatase (38-126) U/L Troponin I (0.000-0.033) ng/mL NT-Pro-B Natriuret Pep (<300) pg/mL Serum Total Protein (6.3-8.2) g/dL Albumin (3.5-5.0) g/dL Triglycerides (30-150) mg/dL Cholesterol (50-200) mg/dL LDL Cholesterol (30-100) mg/dL HDL Cholesterol (40-60) mg/dL Heart Disease Risk Ratio Procalcitonin (0.030-0.080) ng/mL Free T3 pg/mL (2.77-5.27) pg/mL TSH 3rd Generation (0.470-4.680) mIU/L Urine Color Yellow (Yellow) Urine Appearance Clear (Clear) Urine pH 5.0 (4.6-8.0) Ur Specific [place] >=1.030 A (1.005-1.030) Urine Protein Negative (Negative) Urine Glucose (UA) Negative (Negative) mg/dL Urine Ketones Negative (Negative) Urine Blood Negative (Negative) Urine Nitrite Negative (Negative) Urine Bilirubin Negative (Negative) Urine Urobilinogen 0.2 (0.2) mg/dL Ur Leukocyte Esterase Negative (Negative) U Hyaline Cast (Auto) NONE SEEN (0-2) /LPF Urine Microscopic RBC 0-2 (0-5) /HPF Urine Microscopic WBC 0-2 (0-5) /HPF Ur Epithelial Cells None Seen (None Seen) /HPF Urine Bacteria None Seen (None Seen) /HPF Urine Culture Reflexed NO (NO) Urine Opiates Level (NEGATIVE) Ur Methadone (NEGATIVE) Urine Barbiturates (NEGATIVE) Ur Phencyclidine (PCP) (NEGATIVE) Urine Amphetamine (NEGATIVE) U Benzodiazepine Level (NEGATIVE) Urine Cocaine (NEGATIVE) Urine Marijuana (THC) (NEGATIVE) Monoscreen (NEGATIVE) Influenza Type A Ag (NEGATIVE) Influenza Type B Ag (NEGATIVE) RSV (PCR) (NEGATIVE) SARS-CoV-2 (PCR) (NEGATIVE) 07/28/24 07/28/24 07/28/24 Range/Units 21:00 21:25 21:25 WBC (4.23-9.07) x10^3/uL RBC (4.63-6.08) x10^6/uL Hgb (13.7-17.5) g/dL Hct (40.1-51.0) % MCV (79.0-92.2) fL MCH (25.7-32.2) pg MCHC (32.3-36.5) g/dL RDW (11.6-14.4) % Plt Count (163-337) x10^3/uL MPV (9.4-12.4) fL Gran % (34.0-67.9) % Immature Gran % (Auto) (0.001-0.429) % Nucleat RBC Rel Count (0.00-0.2) % Eos # (Auto) (0.04-0.54) x10^3/uL Immature Gran # (Auto) (0.001-0.031) x10^3u/L Absolute Lymphs (auto) (1.32-3.57) x10^3/uL Absolute Monos (auto) (0.30-0.82) x10^3/uL Absolute Nucleated RBC (0.00-0.012) x10^3u/L Lymphocytes % (21.8-53.1) % Monocytes % (5.3-12.2) % Eosinophils % (0.8-7.0) % Basophils % (0.2-1.2) % Absolute Granulocytes (1.78-5.38) x10^3/uL Basophils # (0.01-0.08) x10^3/uL PT (9.4-12.5) SECONDS INR (0.8-3.0) D-Dimer (0.0-0.50) mg/L Sodium (135-145) mmol/L Potassium (3.5-5.1) mmol/L Chloride (98-107) mmol/L Carbon Dioxide (22-30) mmol/L Anion Gap (5-15) MEQ/L BUN (9-20) mg/dL Creatinine (0.66-1.25) mg/dL Estimated GFR ML/MIN Glucose (74-106) mg/dL POC Glucometer (74 to 106) mg/dL Hemoglobin A1c 5.59 (4.5-6.0) % Calcium (8.4-10.2) mg/dL Magnesium (1.6-2.3) mg/dL Total Bilirubin (0.2-1.3) mg/dL AST (17-59) U/L ALT (0-50) U/L Alkaline Phosphatase (38-126) U/L Troponin I < 0.012 (0.000-0.033) ng/mL NT-Pro-B Natriuret Pep (<300) pg/mL Serum Total Protein (6.3-8.2) g/dL Albumin (3.5-5.0) g/dL Triglycerides (30-150) mg/dL Cholesterol (50-200) mg/dL LDL Cholesterol (30-100) mg/dL HDL Cholesterol (40-60) mg/dL Heart Disease Risk Ratio Procalcitonin (0.030-0.080) ng/mL Free T3 pg/mL (2.77-5.27) pg/mL TSH 3rd Generation (0.470-4.680) mIU/L Urine Color (Yellow) Urine Appearance (Clear) Urine pH (4.6-8.0) Ur Specific [place] (1.005-1.030) Urine Protein (Negative) Urine Glucose (UA) (Negative) mg/dL Urine Ketones (Negative) Urine Blood (Negative) Urine Nitrite (Negative) Urine Bilirubin (Negative) Urine Urobilinogen (0.2) mg/dL Ur Leukocyte Esterase (Negative) U Hyaline Cast (Auto) (0-2) /LPF Urine Microscopic RBC (0-5) /HPF Urine Microscopic WBC (0-5) /HPF Ur Epithelial Cells (None Seen) /HPF Urine Bacteria (None Seen) /HPF Urine Culture Reflexed (NO) Urine Opiates Level NEGATIVE (NEGATIVE) Ur Methadone NEGATIVE (NEGATIVE) Urine Barbiturates NEGATIVE (NEGATIVE) Ur Phencyclidine (PCP) NEGATIVE (NEGATIVE) Urine Amphetamine NEGATIVE (NEGATIVE) U Benzodiazepine Level NEGATIVE (NEGATIVE) Urine Cocaine NEGATIVE (NEGATIVE) Urine Marijuana (THC) NEGATIVE (NEGATIVE) Monoscreen (NEGATIVE) Influenza Type A Ag (NEGATIVE) Influenza Type B Ag (NEGATIVE) RSV (PCR) (NEGATIVE) SARS-CoV-2 (PCR) (NEGATIVE) 07/29/24 07/29/24 07/29/24 Range/Units 05:56 05:56 05:56 WBC 9.9 H (4.23-9.07) x10^3/uL RBC 5.18 (4.63-6.08) x10^6/uL Hgb 15.8 (13.7-17.5) g/dL Hct 48.0 (40.1-51.0) % MCV 92.7 H (79.0-92.2) fL MCH 30.5 (25.7-32.2) pg MCHC 32.9 (32.3-36.5) g/dL RDW 13.0 (11.6-14.4) % Plt Count 230 (163-337) x10^3/uL MPV 10.4 (9.4-12.4) fL Gran % 64.1 (34.0-67.9) % Immature Gran % (Auto) 0.2 (0.001-0.429) % Nucleat RBC Rel Count 0.0 (0.00-0.2) % Eos # (Auto) 0.23 (0.04-0.54) x10^3/uL Immature Gran # (Auto) 0.02 (0.001-0.031) x10^3u/L Absolute Lymphs (auto) 2.35 (1.32-3.57) x10^3/uL Absolute Monos (auto) 0.89 H (0.30-0.82) x10^3/uL Absolute Nucleated RBC 0.00 (0.00-0.012) x10^3u/L Lymphocytes % 23.8 (21.8-53.1) % Monocytes % 9.0 (5.3-12.2) % Eosinophils % 2.3 (0.8-7.0) % Basophils % 0.6 (0.2-1.2) % Absolute Granulocytes 6.31 H (1.78-5.38) x10^3/uL Basophils # 0.06 (0.01-0.08) x10^3/uL PT (9.4-12.5) SECONDS INR (0.8-3.0) D-Dimer (0.0-0.50) mg/L Sodium 141 (135-145) mmol/L Potassium 4.2 (3.5-5.1) mmol/L Chloride 103 (98-107) mmol/L Carbon Dioxide 33 H (22-30) mmol/L Anion Gap 8.8 (5-15) MEQ/L BUN 15 (9-20) mg/dL Creatinine 0.91 (0.66-1.25) mg/dL Estimated GFR 94.1 ML/MIN Glucose 103 (74-106) mg/dL POC Glucometer (74 to 106) mg/dL Hemoglobin A1c (4.5-6.0) % Calcium 9.4 (8.4-10.2) mg/dL Magnesium (1.6-2.3) mg/dL Total Bilirubin 0.80 (0.2-1.3) mg/dL AST 31 (17-59) U/L ALT 38 (0-50) U/L Alkaline Phosphatase 61 (38-126) U/L Troponin I (0.000-0.033) ng/mL NT-Pro-B Natriuret Pep 1190 (<300) pg/mL Serum Total Protein 6.8 (6.3-8.2) g/dL Albumin 3.9 (3.5-5.0) g/dL Triglycerides (30-150) mg/dL Cholesterol (50-200) mg/dL LDL Cholesterol (30-100) mg/dL HDL Cholesterol (40-60) mg/dL Heart Disease Risk Ratio Procalcitonin 0.067 (0.030-0.080) ng/mL Free T3 pg/mL (2.77-5.27) pg/mL TSH 3rd Generation (0.470-4.680) mIU/L Urine Color (Yellow) Urine Appearance (Clear) Urine pH (4.6-8.0) Ur Specific [place] (1.005-1.030) Urine Protein (Negative) Urine Glucose (UA) (Negative) mg/dL Urine Ketones (Negative) Urine Blood (Negative) Urine Nitrite (Negative) Urine Bilirubin (Negative) Urine Urobilinogen (0.2) mg/dL Ur Leukocyte Esterase (Negative) U Hyaline Cast (Auto) (0-2) /LPF Urine Microscopic RBC (0-5) /HPF Urine Microscopic WBC (0-5) /HPF Ur Epithelial Cells (None Seen) /HPF Urine Bacteria (None Seen) /HPF Urine Culture Reflexed (NO) Urine Opiates Level (NEGATIVE) Ur Methadone (NEGATIVE) Urine Barbiturates (NEGATIVE) Ur Phencyclidine (PCP) (NEGATIVE) Urine Amphetamine (NEGATIVE) U Benzodiazepine Level (NEGATIVE) Urine Cocaine (NEGATIVE) Urine Marijuana (THC) (NEGATIVE) Monoscreen (NEGATIVE) Influenza Type A Ag (NEGATIVE) Influenza Type B Ag (NEGATIVE) RSV (PCR) (NEGATIVE) SARS-CoV-2 (PCR) (NEGATIVE) 07/29/24 07/29/24 07/29/24 Range/Units 05:56 05:56 05:56 WBC (4.23-9.07) x10^3/uL RBC (4.63-6.08) x10^6/uL Hgb (13.7-17.5) g/dL Hct (40.1-51.0) % MCV (79.0-92.2) fL MCH (25.7-32.2) pg MCHC (32.3-36.5) g/dL RDW (11.6-14.4) % Plt Count (163-337) x10^3/uL MPV (9.4-12.4) fL Gran % (34.0-67.9) % Immature Gran % (Auto) (0.001-0.429) % Nucleat RBC Rel Count (0.00-0.2) % Eos # (Auto) (0.04-0.54) x10^3/uL Immature Gran # (Auto) (0.001-0.031) x10^3u/L Absolute Lymphs (auto) (1.32-3.57) x10^3/uL Absolute Monos (auto) (0.30-0.82) x10^3/uL Absolute Nucleated RBC (0.00-0.012) x10^3u/L Lymphocytes % (21.8-53.1) % Monocytes % (5.3-12.2) % Eosinophils % (0.8-7.0) % Basophils % (0.2-1.2) % Absolute Granulocytes (1.78-5.38) x10^3/uL Basophils # (0.01-0.08) x10^3/uL PT (9.4-12.5) SECONDS INR (0.8-3.0) D-Dimer 1.28 H* (0.0-0.50) mg/L Sodium (135-145) mmol/L Potassium (3.5-5.1) mmol/L Chloride (98-107) mmol/L Carbon Dioxide (22-30) mmol/L Anion Gap (5-15) MEQ/L BUN (9-20) mg/dL Creatinine (0.66-1.25) mg/dL Estimated GFR ML/MIN Glucose (74-106) mg/dL POC Glucometer (74 to 106) mg/dL Hemoglobin A1c (4.5-6.0) % Calcium (8.4-10.2) mg/dL Magnesium (1.6-2.3) mg/dL Total Bilirubin (0.2-1.3) mg/dL AST (17-59) U/L ALT (0-50) U/L Alkaline Phosphatase (38-126) U/L Troponin I (0.000-0.033) ng/mL NT-Pro-B Natriuret Pep (<300) pg/mL Serum Total Protein (6.3-8.2) g/dL Albumin (3.5-5.0) g/dL Triglycerides 86 (30-150) mg/dL Cholesterol 170 (50-200) mg/dL LDL Cholesterol 111 H (30-100) mg/dL HDL Cholesterol 41 (40-60) mg/dL Heart Disease Risk Ratio 4.0 Procalcitonin (0.030-0.080) ng/mL Free T3 pg/mL 4.24 (2.77-5.27) pg/mL TSH 3rd Generation (0.470-4.680) mIU/L Urine Color (Yellow) Urine Appearance (Clear) Urine pH (4.6-8.0) Ur Specific [place] (1.005-1.030) Urine Protein (Negative) Urine Glucose (UA) (Negative) mg/dL Urine Ketones (Negative) Urine Blood (Negative) Urine Nitrite (Negative) Urine Bilirubin (Negative) Urine Urobilinogen (0.2) mg/dL Ur Leukocyte Esterase (Negative) U Hyaline Cast (Auto) (0-2) /LPF Urine Microscopic RBC (0-5) /HPF Urine Microscopic WBC (0-5) /HPF Ur Epithelial Cells (None Seen) /HPF Urine Bacteria (None Seen) /HPF Urine Culture Reflexed (NO) Urine Opiates Level (NEGATIVE) Ur Methadone (NEGATIVE) Urine Barbiturates (NEGATIVE) Ur Phencyclidine (PCP) (NEGATIVE) Urine Amphetamine (NEGATIVE) U Benzodiazepine Level (NEGATIVE) Urine Cocaine (NEGATIVE) Urine Marijuana (THC) (NEGATIVE) Monoscreen (NEGATIVE) Influenza Type A Ag (NEGATIVE) Influenza Type B Ag (NEGATIVE) RSV (PCR) (NEGATIVE) SARS-CoV-2 (PCR) (NEGATIVE) 07/29/24 Range/Units 07:35 WBC (4.23-9.07) x10^3/uL RBC (4.63-6.08) x10^6/uL Hgb (13.7-17.5) g/dL Hct (40.1-51.0) % MCV (79.0-92.2) fL MCH (25.7-32.2) pg MCHC (32.3-36.5) g/dL RDW (11.6-14.4) % Plt Count (163-337) x10^3/uL MPV (9.4-12.4) fL Gran % (34.0-67.9) % Immature Gran % (Auto) (0.001-0.429) % Nucleat RBC Rel Count (0.00-0.2) % Eos # (Auto) (0.04-0.54) x10^3/uL Immature Gran # (Auto) (0.001-0.031) x10^3u/L Absolute Lymphs (auto) (1.32-3.57) x10^3/uL Absolute Monos (auto) (0.30-0.82) x10^3/uL Absolute Nucleated RBC (0.00-0.012) x10^3u/L Lymphocytes % (21.8-53.1) % Monocytes % (5.3-12.2) % Eosinophils % (0.8-7.0) % Basophils % (0.2-1.2) % Absolute Granulocytes (1.78-5.38) x10^3/uL Basophils # (0.01-0.08) x10^3/uL PT (9.4-12.5) SECONDS INR (0.8-3.0) D-Dimer (0.0-0.50) mg/L Sodium (135-145) mmol/L Potassium (3.5-5.1) mmol/L Chloride (98-107) mmol/L Carbon Dioxide (22-30) mmol/L Anion Gap (5-15) MEQ/L BUN (9-20) mg/dL Creatinine (0.66-1.25) mg/dL Estimated GFR ML/MIN Glucose (74-106) mg/dL POC Glucometer 108 H (74 to 106) mg/dL Hemoglobin A1c (4.5-6.0) % Calcium (8.4-10.2) mg/dL Magnesium (1.6-2.3) mg/dL Total Bilirubin (0.2-1.3) mg/dL AST (17-59) U/L ALT (0-50) U/L Alkaline Phosphatase (38-126) U/L Troponin I (0.000-0.033) ng/mL NT-Pro-B Natriuret Pep (<300) pg/mL Serum Total Protein (6.3-8.2) g/dL Albumin (3.5-5.0) g/dL Triglycerides (30-150) mg/dL Cholesterol (50-200) mg/dL LDL Cholesterol (30-100) mg/dL HDL Cholesterol (40-60) mg/dL Heart Disease Risk Ratio Procalcitonin (0.030-0.080) ng/mL Free T3 pg/mL (2.77-5.27) pg/mL TSH 3rd Generation (0.470-4.680) mIU/L Urine Color (Yellow) Urine Appearance (Clear) Urine pH (4.6-8.0) Ur Specific [place] (1.005-1.030) Urine Protein (Negative) Urine Glucose (UA) (Negative) mg/dL Urine Ketones (Negative) Urine Blood (Negative) Urine Nitrite (Negative) Urine Bilirubin (Negative) Urine Urobilinogen (0.2) mg/dL Ur Leukocyte Esterase (Negative) U Hyaline Cast (Auto) (0-2) /LPF Urine Microscopic RBC (0-5) /HPF Urine Microscopic WBC (0-5) /HPF Ur Epithelial Cells (None Seen) /HPF Urine Bacteria (None Seen) /HPF Urine Culture Reflexed (NO) Urine Opiates Level (NEGATIVE) Ur Methadone (NEGATIVE) Urine Barbiturates (NEGATIVE) Ur Phencyclidine (PCP) (NEGATIVE) Urine Amphetamine (NEGATIVE) U Benzodiazepine Level (NEGATIVE) Urine Cocaine (NEGATIVE) Urine Marijuana (THC) (NEGATIVE) Monoscreen (NEGATIVE) Influenza Type A Ag (NEGATIVE) Influenza Type B Ag (NEGATIVE) RSV (PCR) (NEGATIVE) SARS-CoV-2 (PCR) (NEGATIVE) Radiology Exams: Radiology Procedures Category Date Time Status CHEST 1 VIEW (PORTABLE) Stat Exams 07/28/24 12:13 Completed CHEST WITH CONTRAST [CT] Stat Exams 07/28/24 15:27 Completed ECHO W/2D AND DOPPLER [US] Stat Exams 07/31/24 15:20 Ordered Assessment/Plan (1) Atrial fibrillation with RVR Current Visit: Yes Status: Acute Assessment & Plan: Assessment/Plan (1) Pneumonia due to COVID-19 virus Current Visit: Yes Status: Acute Assessment & Plan: -COVID positive but outside window for treatment -CXR demonstrates new cardiomegaly, pulmonary edema, and small bibasilar effusions favoring cardiac decompensation/CHF. -Superimposed pneumonia not completely excluded -Continue Dexamethasone 6mg x 10 days -supportive care - symptoms began over a week ago -Continue Ceftriaxone/azithromycin for possible superimposed pneumonia -CT chest showed no PE. DDimer was elevated -Continue bronchodilators -Continue supplemental oxygen with goal spo2 > 92% -flutter therapy (2) Atrial fibrillation with RVR Current Visit: Yes Status: Acute Assessment & Plan: -New onset -Seen by Cardiology -ChadVasc score at least a 3 (patient poor historian with pmhx) -HR remains elevated -Increased dose of Metoprolol -Cardiolgy recommends Eliquis -Echo pending (3) CHF exacerbation Current Visit: Yes Status: Acute Assessment & Plan: -CXR reviewed -Most recent NM stress test from 07/01/2017 showed EF of 47% left ventricle hypertrophy. New small focus of pharmacologic induced reversible ischemia involving the apical inferior wall. -Patient does not take home meds or follow with cardiology -Cardiology consult in chart -Continue Lasix -Echo pending (4) HTN (hypertension) Current Visit: Yes Status: Acute Assessment & Plan: -patient does not take home meds -BP is high -Increased dose of Metoprolol (5) Diabetes mellitus Current Visit: Yes Status: Acute Assessment & Plan: -Patient states he was diagnosed and placed on meds years ago but stopped his medication -ADA diet -Monitor BS. SS insulin (6) Hyperthyroid -TSH is low -Will check T4 and T3 -Treat with beta reji for now -Later will need thyroid scan and us of thyroid -Plan outpatient endocrinology consult DVT Prophylaxis -Eliquis Code(s): I48.91 - UNSPECIFIED ATRIAL FIBRILLATION Telemedicine Encounter - Telemedicine Encounter Telemedicine Encounter: "The entirety of this encounter was performed via Telemedicine" This visit was performed using real-time audio and video connection between my location and thepatients locationwith the assistance of a surrogateat the patients location. Written or verbal consent was obtained from the patient/guardian to perform this visit using[facility] technology. Any patient questions regarding the telemedicine interaction were answered.
[2024-07-29] MEDS: ELIQUIS 2.5 MG TABLET PO SCH (18:04)
[2024-07-29] MEDS: Lanoxin 0.5 MG/2 ML INJECTION IV ONE (18:05)
[2024-07-29] MEDS: Lopressor 50 MG PO SCH (21:30)
[2024-07-29] MEDS: HUMALOG SQ PRN (23:22)
[2024-07-30] MEDS: Lanoxin 0.5 MG/2 ML INJECTION IV ONE ×2 (00:04→11:36)
--- NOTE | 2024-07-30 05:33 | PCM.NOTE ---
Date and Time: 07/30/24 0532 Subjective Assessment: is a 64 year old male pmhx of smoker (1.5 PPD x 50 years), CHF, FL, HTN, DMII, anxiety, and depression who presented to ED 07/28/24 with complaints of shortness of breath and the sensation of his "heart racing." Patient states his symptoms began approximately 1-2 weeks ago. He was seen by his PCP and diagnosed with bronchitis at that time and prescribed mucinex and doxycycline. His symptoms did not improve and his shortness of breath progressively got worse around . Today he felt like he could not breathe and that his heart was racing which prompted him to ED. He had an episode last night of chest tightness and substernal pain that lasted less than 15 mins. The pain was sharp with no aggravating or relieving factors. No associated symptoms. He is a rather poor historian but reports he thinks he had a heart attack about [address] Cornejo (cardiology). He had a heart cath - no stents placed. He also reports that he has a history of DMII and HTN. He decided to stop taking all prescribed medications about 7 years ago because he did not like the side effect s. He has had no follow up with Cardiology in > 7 years. Denies fever, cp, abdominal pain, SIMEON, dizziness, N/V/D. No recent sick contacts. Upon arrival to ED patient was tachycardic, tachypneic, and hypoxic. He was placed on 2L NC. EKG with AFIB NORMAL AXIS, prolonged QT interval, NORMAL QRS, Other (No acute ischemia. QTc is 489). CXR demonstrates chest demonstrates new cardiomegaly, pulmonary edema, and small bibasilar effusions favoring cardiac decompensation/CHF. Superimposed pneumonia not completely excluded. Lab findings remarkable for elevated ddimer, BNP at 1240 and positive COVID. Patient was given cardizem, lasix, and DuoNeb treatment. He is feeling somewhat improved. HR now 100. Admit for AFIB RVR, COVID pneumonia, CHF exacerbation. Symptoms began over a week ago - is not a candidate for COVID specific therapies such as remdesivir/paxlovid. Objective Data Vital Signs: Vital Signs - 24 hr Temp Pulse Resp BP Pulse Ox 07/30/24 04:00 98.4 F 98 H 18 163/90 94 L 07/30/24 00:00 98.5 F 99 H 16 156/90 97 07/29/24 20:00 98.4 F 125 H 17 157/84 96 07/29/24 16:00 98.2 F 103 H 20 153/102 95 07/29/24 12:00 98.2 F 62 20 141/82 95 07/29/24 07:52 98.2 F 102 H 20 158/84 95 07/29/24 07:31 95 Pain Assessment - Last Documented Pain Intensity 0 Intake and Output: Intake & Output 07/27/24 07/28/24 07/29/24 07/30/24 11:59 11:59 11:59 11:59 Intake Total 360 645 Output Total 360 Balance 0 645 Weight 117.027 kg 118.3 kg Lab Results: Lab Results-Last 24 Hours 07/29/24 07/29/24 07/29/24 Range/Units 05:56 05:56 05:56 WBC 9.9 H (4.23-9.07) x10^3/uL RBC 5.18 (4.63-6.08) x10^6/uL Hgb 15.8 (13.7-17.5) g/dL Hct 48.0 (40.1-51.0) % MCV 92.7 H (79.0-92.2) fL MCH 30.5 (25.7-32.2) pg MCHC 32.9 (32.3-36.5) g/dL RDW 13.0 (11.6-14.4) % Plt Count 230 (163-337) x10^3/uL MPV 10.4 (9.4-12.4) fL Gran % 64.1 (34.0-67.9) % Immature Gran % (Auto) 0.2 (0.001-0.429) % Nucleat RBC Rel Count 0.0 (0.00-0.2) % Eos # (Auto) 0.23 (0.04-0.54) x10^3/uL Immature Gran # (Auto) 0.02 (0.001-0.031) x10^3u/L Absolute Lymphs (auto) 2.35 (1.32-3.57) x10^3/uL Absolute Monos (auto) 0.89 H (0.30-0.82) x10^3/uL Absolute Nucleated RBC 0.00 (0.00-0.012) x10^3u/L Lymphocytes % 23.8 (21.8-53.1) % Monocytes % 9.0 (5.3-12.2) % Eosinophils % 2.3 (0.8-7.0) % Basophils % 0.6 (0.2-1.2) % Absolute Granulocytes 6.31 H (1.78-5.38) x10^3/uL Basophils # 0.06 (0.01-0.08) x10^3/uL D-Dimer (0.0-0.50) mg/L Sodium 141 (135-145) mmol/L Potassium 4.2 (3.5-5.1) mmol/L Chloride 103 (98-107) mmol/L Carbon Dioxide 33 H (22-30) mmol/L Anion Gap 8.8 (5-15) MEQ/L BUN 15 (9-20) mg/dL Creatinine 0.91 (0.66-1.25) mg/dL Estimated GFR 94.1 ML/MIN Glucose 103 (74-106) mg/dL POC Glucometer (74 to 106) mg/dL Calcium 9.4 (8.4-10.2) mg/dL Magnesium (1.6-2.3) mg/dL Total Bilirubin 0.80 (0.2-1.3) mg/dL AST 31 (17-59) U/L ALT 38 (0-50) U/L Alkaline Phosphatase 61 (38-126) U/L NT-Pro-B Natriuret Pep 1190 (<300) pg/mL Serum Total Protein 6.8 (6.3-8.2) g/dL Albumin 3.9 (3.5-5.0) g/dL Triglycerides (30-150) mg/dL Cholesterol (50-200) mg/dL LDL Cholesterol (30-100) mg/dL HDL Cholesterol (40-60) mg/dL Heart Disease Risk Ratio Procalcitonin 0.067 (0.030-0.080) ng/mL Free T3 pg/mL (2.77-5.27) pg/mL 07/29/24 07/29/24 07/29/24 Range/Units 05:56 05:56 05:56 WBC (4.23-9.07) x10^3/uL RBC (4.63-6.08) x10^6/uL Hgb (13.7-17.5) g/dL Hct (40.1-51.0) % MCV (79.0-92.2) fL MCH (25.7-32.2) pg MCHC (32.3-36.5) g/dL RDW (11.6-14.4) % Plt Count (163-337) x10^3/uL MPV (9.4-12.4) fL Gran % (34.0-67.9) % Immature Gran % (Auto) (0.001-0.429) % Nucleat RBC Rel Count (0.00-0.2) % Eos # (Auto) (0.04-0.54) x10^3/uL Immature Gran # (Auto) (0.001-0.031) x10^3u/L Absolute Lymphs (auto) (1.32-3.57) x10^3/uL Absolute Monos (auto) (0.30-0.82) x10^3/uL Absolute Nucleated RBC (0.00-0.012) x10^3u/L Lymphocytes % (21.8-53.1) % Monocytes % (5.3-12.2) % Eosinophils % (0.8-7.0) % Basophils % (0.2-1.2) % Absolute Granulocytes (1.78-5.38) x10^3/uL Basophils # (0.01-0.08) x10^3/uL D-Dimer 1.28 H* (0.0-0.50) mg/L Sodium (135-145) mmol/L Potassium (3.5-5.1) mmol/L Chloride (98-107) mmol/L Carbon Dioxide (22-30) mmol/L Anion Gap (5-15) MEQ/L BUN (9-20) mg/dL Creatinine (0.66-1.25) mg/dL Estimated GFR ML/MIN Glucose (74-106) mg/dL POC Glucometer (74 to 106) mg/dL Calcium (8.4-10.2) mg/dL Magnesium (1.6-2.3) mg/dL Total Bilirubin (0.2-1.3) mg/dL AST (17-59) U/L ALT (0-50) U/L Alkaline Phosphatase (38-126) U/L NT-Pro-B Natriuret Pep (<300) pg/mL Serum Total Protein (6.3-8.2) g/dL Albumin (3.5-5.0) g/dL Triglycerides 86 (30-150) mg/dL Cholesterol 170 (50-200) mg/dL LDL Cholesterol 111 H (30-100) mg/dL HDL Cholesterol 41 (40-60) mg/dL Heart Disease Risk Ratio 4.0 Procalcitonin (0.030-0.080) ng/mL Free T3 pg/mL 4.24 (2.77-5.27) pg/mL 07/29/24 07/29/24 07/29/24 Range/Units 05:56 07:35 11:50 WBC (4.23-9.07) x10^3/uL RBC (4.63-6.08) x10^6/uL Hgb (13.7-17.5) g/dL Hct (40.1-51.0) % MCV (79.0-92.2) fL MCH (25.7-32.2) pg MCHC (32.3-36.5) g/dL RDW (11.6-14.4) % Plt Count (163-337) x10^3/uL MPV (9.4-12.4) fL Gran % (34.0-67.9) % Immature Gran % (Auto) (0.001-0.429) % Nucleat RBC Rel Count (0.00-0.2) % Eos # (Auto) (0.04-0.54) x10^3/uL Immature Gran # (Auto) (0.001-0.031) x10^3u/L Absolute Lymphs (auto) (1.32-3.57) x10^3/uL Absolute Monos (auto) (0.30-0.82) x10^3/uL Absolute Nucleated RBC (0.00-0.012) x10^3u/L Lymphocytes % (21.8-53.1) % Monocytes % (5.3-12.2) % Eosinophils % (0.8-7.0) % Basophils % (0.2-1.2) % Absolute Granulocytes (1.78-5.38) x10^3/uL Basophils # (0.01-0.08) x10^3/uL D-Dimer (0.0-0.50) mg/L Sodium (135-145) mmol/L Potassium (3.5-5.1) mmol/L Chloride (98-107) mmol/L Carbon Dioxide (22-30) mmol/L Anion Gap (5-15) MEQ/L BUN (9-20) mg/dL Creatinine (0.66-1.25) mg/dL Estimated GFR ML/MIN Glucose (74-106) mg/dL POC Glucometer 108 H 130 H (74 to 106) mg/dL Calcium (8.4-10.2) mg/dL Magnesium 2.2 (1.6-2.3) mg/dL Total Bilirubin (0.2-1.3) mg/dL AST (17-59) U/L ALT (0-50) U/L Alkaline Phosphatase (38-126) U/L NT-Pro-B Natriuret Pep (<300) pg/mL Serum Total Protein (6.3-8.2) g/dL Albumin (3.5-5.0) g/dL Triglycerides (30-150) mg/dL Cholesterol (50-200) mg/dL LDL Cholesterol (30-100) mg/dL HDL Cholesterol (40-60) mg/dL Heart Disease Risk Ratio Procalcitonin (0.030-0.080) ng/mL Free T3 pg/mL (2.77-5.27) pg/mL 07/29/24 07/29/24 Range/Units 16:30 21:30 WBC (4.23-9.07) x10^3/uL RBC (4.63-6.08) x10^6/uL Hgb (13.7-17.5) g/dL Hct (40.1-51.0) % MCV (79.0-92.2) fL MCH (25.7-32.2) pg MCHC (32.3-36.5) g/dL RDW (11.6-14.4) % Plt Count (163-337) x10^3/uL MPV (9.4-12.4) fL Gran % (34.0-67.9) % Immature Gran % (Auto) (0.001-0.429) % Nucleat RBC Rel Count (0.00-0.2) % Eos # (Auto) (0.04-0.54) x10^3/uL Immature Gran # (Auto) (0.001-0.031) x10^3u/L Absolute Lymphs (auto) (1.32-3.57) x10^3/uL Absolute Monos (auto) (0.30-0.82) x10^3/uL Absolute Nucleated RBC (0.00-0.012) x10^3u/L Lymphocytes % (21.8-53.1) % Monocytes % (5.3-12.2) % Eosinophils % (0.8-7.0) % Basophils % (0.2-1.2) % Absolute Granulocytes (1.78-5.38) x10^3/uL Basophils # (0.01-0.08) x10^3/uL D-Dimer (0.0-0.50) mg/L Sodium (135-145) mmol/L Potassium (3.5-5.1) mmol/L Chloride (98-107) mmol/L Carbon Dioxide (22-30) mmol/L Anion Gap (5-15) MEQ/L BUN (9-20) mg/dL Creatinine (0.66-1.25) mg/dL Estimated GFR ML/MIN Glucose (74-106) mg/dL POC Glucometer 146 H 201 H (74 to 106) mg/dL Calcium (8.4-10.2) mg/dL Magnesium (1.6-2.3) mg/dL Total Bilirubin (0.2-1.3) mg/dL AST (17-59) U/L ALT (0-50) U/L Alkaline Phosphatase (38-126) U/L NT-Pro-B Natriuret Pep (<300) pg/mL Serum Total Protein (6.3-8.2) g/dL Albumin (3.5-5.0) g/dL Triglycerides (30-150) mg/dL Cholesterol (50-200) mg/dL LDL Cholesterol (30-100) mg/dL HDL Cholesterol (40-60) mg/dL Heart Disease Risk Ratio Procalcitonin (0.030-0.080) ng/mL Free T3 pg/mL (2.77-5.27) pg/mL Radiology Exams: Radiology Procedures Category Date Time Status CHEST 1 VIEW (PORTABLE) Stat Exams 07/28/24 12:13 Completed CHEST WITH CONTRAST [CT] Stat Exams 07/28/24 15:27 Completed ECHO W/2D AND DOPPLER [US] Stat Exams 07/31/24 15:20 Ordered Assessment/Plan (1) Pneumonia due to COVID-19 virus Current Visit: Yes Status: Acute Assessment & Plan: -CXR demonstrates new cardiomegaly, pulmonary edema, and small bibasilar effusions favoring cardiac decompensation/CHF. Superimposed pneumonia not completely excluded -Therapeutic lovenox -dexamethasone 6mg x 10 days -supportive care - symptoms began over a week ago -Ceftriaxone/azithromycin for possible superimposed pneumonia -CT chest pending -RT eval -Nebs prn -supplemental oxygen with goal spo2 > 92% -flutter therapy Code(s): U07.1 - COVID-19; J12.82 - PNEUMONIA DUE TO CORONAVIRUS DISEASE 2019 (2) Atrial fibrillation with RVR Current Visit: Yes Status: Acute Assessment & Plan: -EKG in the a.m. repeat -New onset -Therapeutic lovenox /metoprolol tartrate 25mg bid -Cardiology consult pending -ChadVasc score at least a 3 (patient poor historian with pmhx) -Cardizem given in ED - HR now at 100 -CTA chest -DDimer elevated -Echo when available Code(s): I48.91 - UNSPECIFIED ATRIAL FIBRILLATION (3) CHF exacerbation Current Visit: Yes Status: Acute Assessment & Plan: -CXR reviewed as stated above -CT pending -Most recent NM stress test from 07/01/2017 showed EF of 47% left ventricle hypertrophy. New small focus of pharmacologic induced reversible ischemia involving the apical inferior wall. -Patient does not take home meds or follow with cardiology -consult cardiology - appreciate recs -Echo ordered - not able to obtain as staff is unavailable until Wednesday -Received lasix in ED -continue lasix 40mg IV daily -No edema on exam -BNP at 1240 Code(s): I50.9 - HEART FAILURE, UNSPECIFIED (4) HTN (hypertension) Current Visit: Yes Status: Acute Assessment & Plan: -BP stable - patient does not take home meds - started on metoprolol for AFIB - will monitor and adjust as needed Code(s): I10 - ESSENTIAL (PRIMARY) HYPERTENSION (5) Diabetes mellitus Current Visit: Yes Status: Acute Assessment & Plan: -Patient states he was diagnosed and placed on meds years ago but no longer takes anything - will obtain A1c -ADA diet -accuchecks - SSI ###Hyperthyroid --TSH is low in the setting of AFIB -Will check T4 and T3 and repeat TSH -Treat with beta reji for now -Later will need thyroid scan and us of thyroid -Plan outpatient endocrinology consult VTE: lovenox PPI: protonix Dispo: 2-3 days Code Status: Full code Code(s): E11.9 - TYPE 2 DIABETES MELLITUS WITHOUT COMPLICATIONS Code(s): U07.1 - COVID-19; J12.82 - PNEUMONIA DUE TO CORONAVIRUS DISEASE 2018 (2) Atrial fibrillation with RVR Current Visit: Yes Status: Acute Code(s): I48.91 - UNSPECIFIED ATRIAL FIBRILLATION (3) CHF exacerbation Current Visit: Yes Status: Acute Code(s): I50.9 - HEART FAILURE, UNSPECIFIED (4) HTN (hypertension) Current Visit: Yes Status: Acute Code(s): I10 - ESSENTIAL (PRIMARY) HYPERTENSION (5) Diabetes mellitus Current Visit: Yes Status: Acute Code(s): E11.9 - TYPE 2 DIABETES MELLITUS WITHOUT COMPLICATIONS (6) Hyperthyroidism Current Visit: Yes Status: Acute Code(s): E05.90 - THYROTOXICOSIS, UNSP WITHOUT THYROTOXIC CRISIS OR STORM
[2024-07-30 07:01] VITALS: O2SAT 93
[2024-07-30 07:25] LABS: Absolute Neutrophil Ct (ANC) 13.48 x10^3/uL (1.78-5.38); BASOPHIL % 0.2 % (0.2-1.2); Basophil (Absolute #) 0.04 x10^3/uL (0.01-0.08); Eosinophil % 0.1 % (0.8-7.0); Eosinophil (Absolute #) 0.02 x10^3/uL (0.04-0.54); Hematocrit 49.3 % (40.1-51.0); Hemoglobin 16.4 g/dL (13.7-17.5); IMMATURE GRAN # 0.09 x10^3u/L (0.001-0.031); IMMATURE GRAN % 0.5 % (0.001-0.429); Lymphocyte (Absolute #) 1.73 x10^3/uL (1.32-3.57); Lymphocytes % 10.5 % (21.8-53.1); Mean Cell Volume 91.6 fL (79.0-92.2); Mean Corpuscular Hemoglobin 30.5 pg (25.7-32.2); Mean Corpuscular Hgb Concent. 33.3 g/dL (32.3-36.5); Mean Platelet Volume 10.9 fL (9.4-12.4); Monocyte (Absolute #) 1.18 x10^3/uL (0.30-0.82); Monocytes % 7.1 % (5.3-12.2); Neutrophil % 81.6 % (34.0-67.9); Platelet Count 225 x10^3/uL (163-337); Red Blood Count 5.38 x10^6/uL (4.63-6.08); Red Cell Distribution Width 12.7 % (11.6-14.4); White Blood Count 16.5 x10^3/uL (4.23-9.07)
[2024-07-30 07:59] LABS: ALBUMIN 4.5 g/dL (3.5-5.0); ANION GAP 10.9 MEQ/L (5-15); BILIRUBIN,TOTAL 0.7 mg/dL (0.2-1.3); Calcium 9.7 mg/dL (8.4-10.2); Creatinine 1 0.98 mg/dL (0.66-1.25); EST GLOMERULAR FILTRATION RATE 86.1 ML/MIN; MAGNESIUM 2.1 mg/dL (1.6-2.3); PROCALCITONIN 0.06 ng/mL (0.030-0.080); Total Protein 8.3 g/dL (6.3-8.2)
--- NOTE | 2024-07-30 11:18 | PCM.DS ---
Discharge Summary Date of Admission: 07/28/24 14:27 Date of Discharge: 07/30/24 Admitting Physician: REYNALDO AMES MD Consults: Consults on Case 07/28/24 14:57 Consult Cardiology ROUTINE Primary Care Provider: NO FAMILY DOCTOR Allergies Allergies tramadol Adverse Reaction (Mild, Verified 09/04/16 06:21) nausea/vomiting Hospital Summary - Hospital Course Hospital Course: is a 64 year old male pmhx of smoker (1.5 PPD x 50 years), CHF, [place], HTN, DMII, anxiety, and depression who presented to ED 07/28/24 with complaints of shortness of breath and the sensation of his "heart racing." Patient states his symptoms began approximately 1-2 weeks ago. He was seen by his PCP and diagnosed with bronchitis at that time and prescribed mucinex and doxycycline. His symptoms did not improve and his shortness of breath progressively got worse around . Today he felt like he could not breathe and that his heart was racing which prompted him to ED. He had an episode last night of chest tightness and substernal pain that lasted less than 15 mins. The pain was sharp with no aggravating or relieving factors. No associated symptoms. He is a rather poor historian but reports he thinks he had a heart attack about [address] Cornejo (cardiology). He had a heart cath - no stents placed. He also reports that he has a history of DMII and HTN. He decided to stop taking all prescribed medications about 7 years ago because he did not like the side effects. He has had no follow up with Cardiology in > 7 years. Denies fever, cp, abdominal pain, SIMEON, dizziness, N/V/D. No recent sick contacts. Upon arrival to ED patient was tachycardic, tachypneic, and hypoxic. He was placed on 2L NC. EKG with AFIB NORMAL AXIS, prolonged QT interval, NORMAL QRS, Other (No acute ischemia. QTc is 489). CXR demonstrates chest demonstrates new cardiomegaly, pulmonary edema, and small bibasilar effusions favoring cardiac decompensation/CHF. Superimposed pneumonia not completely excluded. Initial lab findings remarkable for elevated ddimer, BNP at 1240 and positive COVID. Patient was given cardizem, lasix, and DuoNeb treatment. Admit for AFIB RVR, COVID pneumonia, CHF exacerbation. Symptoms began over a week ago - is not a candidate for COVID specific therapies such as remdesivir/paxlovid. Patient HR now controlled. Cardiology recommendations for Eliquis, lasix, and metoprolol. Patient requesting discharge today. He is on RA and HR controlled. Advised patient of the importance of follow up with cardiology and PCP. TSH level low during admission. Advised follow up with endocrinology/pcp for evaluation. Discharge Note New Diagnosis: AFIB RVR/COVID New Medications:dexamethasone /metoprolol/eliquis/ lasix Follow Up: PCP/ cardiology/endocrinology Latest Assessment & Plan (1) Pneumonia due to COVID-19 virus Current Visit: Yes Status: Acute Assessment & Plan: -CXR demonstrates new cardiomegaly, pulmonary edema, and small bibasilar effusions favoring cardiac decompensation/CHF. Superimposed pneumonia not completely excluded -Therapeutic lovenox -dexamethasone 6mg x 10 days -supportive care - symptoms began over a week ago -Ceftriaxone/azithromycin for possible superimposed pneumonia -CT chest pending -RT eval -Nebs prn -supplemental oxygen with goal spo2 > 92% -flutter therapy Code(s): U07.1 - COVID-19; J12.82 - PNEUMONIA DUE TO CORONAVIRUS DISEASE 2019 (2) Atrial fibrillation with RVR Current Visit: Yes Status: Acute Assessment & Plan: -EKG in the a.m. repeat -New onset -Therapeutic lovenox /metoprolol tartrate 25mg bid -Cardiology consult pending -ChadVasc score at least a 3 (patient poor historian with pmhx) -Cardizem given in ED - HR now at 100 -CTA chest -DDimer elevated -Echo when available Code(s): I48.91 - UNSPECIFIED ATRIAL FIBRILLATION (3) CHF exacerbation Current Visit: Yes Status: Acute Assessment & Plan: -CXR reviewed as stated above -CT pending -Most recent NM stress test from 07/01/2017 showed EF of 47% left ventricle hypertrophy. New small focus of pharmacologic induced reversible ischemia involving the apical inferior wall. -Patient does not take home meds or follow with cardiology -consult cardiology - appreciate recs -Echo ordered - not able to obtain as staff is unavailable until Wednesday -Received lasix in ED -continue lasix 40mg IV daily -No edema on exam -BNP at 1240 Code(s): I50.9 - HEART FAILURE, UNSPECIFIED (4) HTN (hypertension) Current Visit: Yes Status: Acute Assessment & Plan: -BP stable - patient does not take home meds - started on metoprolol for AFIB - will monitor and adjust as needed Code(s): I10 - ESSENTIAL (PRIMARY) HYPERTENSION (5) Diabetes mellitus Current Visit: Yes Status: Acute Assessment & Plan: -Patient states he was diagnosed and placed on meds years ago but no longer takes anything - will obtain A1c -ADA diet -accuchecks - SSI ###Hyperthyroid --TSH is low in the setting of AFIB -Will check T4 and T3 and repeat TSH -Treat with beta reji for now -Later will need thyroid scan and us of thyroid -Plan outpatient endocrinology consult I spent 35 minutes [id number] with the patient on the day of discharge performing discharge exam, discussing hospital stay and discharge instructions with patient and caregivers, preparation of discharge records, prescriptions & referral forms and addressing any questions/concerns the patient had as documented above. - Vitals & Intake/Output Vital Signs: Vital Signs Temperature 98.5 F 07/30/24 07:01 Pulse Rate 95 H 07/30/24 07:01 Respiratory Rate 16 07/30/24 07:01 Blood Pressure 169/92 07/30/24 07:01 O2 Sat by Pulse Oximetry 93 L 07/30/24 07:01 Intake & Output: Intake & Output 07/27/24 07/28/24 07/29/24 07/30/24 11:59 11:59 11:59 11:59 Intake Total 360 1025 Output Total 360 Balance 0 1025 Weight 117.027 kg 118.3 kg 118 kg - Lab Result Diagrams: 07/30/24 07:05 07/30/24 07:05 Lab Results-Last 24 Hrs: Lab Results-Last 24 Hours 07/29/24 07/29/24 07/29/24 Range/Units 05:56 11:50 16:30 WBC (4.23-9.07) x10^3/uL RBC (4.63-6.08) x10^6/uL Hgb (13.7-17.5) g/dL Hct (40.1-51.0) % MCV (79.0-92.2) fL MCH (25.7-32.2) pg MCHC (32.3-36.5) g/dL RDW (11.6-14.4) % Plt Count (163-337) x10^3/uL MPV (9.4-12.4) fL Gran % (34.0-67.9) % Immature Gran % (Auto) (0.001-0.429) % Nucleat RBC Rel Count (0.00-0.2) % Eos # (Auto) (0.04-0.54) x10^3/uL Immature Gran # (Auto) (0.001-0.031) x10^3u/L Absolute Lymphs (auto) (1.32-3.57) x10^3/uL Absolute Monos (auto) (0.30-0.82) x10^3/uL Absolute Nucleated RBC (0.00-0.012) x10^3u/L Lymphocytes % (21.8-53.1) % Monocytes % (5.3-12.2) % Eosinophils % (0.8-7.0) % Basophils % (0.2-1.2) % Absolute Granulocytes (1.78-5.38) x10^3/uL Basophils # (0.01-0.08) x10^3/uL D-Dimer (0.0-0.50) mg/L Sodium (135-145) mmol/L Potassium (3.5-5.1) mmol/L Chloride (98-107) mmol/L Carbon Dioxide (22-30) mmol/L Anion Gap (5-15) MEQ/L BUN (9-20) mg/dL Creatinine (0.66-1.25) mg/dL Estimated GFR ML/MIN Glucose (74-106) mg/dL POC Glucometer 130 H 146 H (74 to 106) mg/dL Calcium (8.4-10.2) mg/dL Magnesium 2.2 (1.6-2.3) mg/dL Total Bilirubin (0.2-1.3) mg/dL AST (17-59) U/L ALT (0-50) U/L Alkaline Phosphatase (38-126) U/L Serum Total Protein (6.3-8.2) g/dL Albumin (3.5-5.0) g/dL Procalcitonin (0.030-0.080) ng/mL 07/29/24 07/30/24 07/30/24 Range/Units 21:30 06:51 07:05 WBC 16.5 H (4.23-9.07) x10^3/uL RBC 5.38 (4.63-6.08) x10^6/uL Hgb 16.4 (13.7-17.5) g/dL Hct 49.3 (40.1-51.0) % MCV 91.6 (79.0-92.2) fL MCH 30.5 (25.7-32.2) pg MCHC 33.3 (32.3-36.5) g/dL RDW 12.7 (11.6-14.4) % Plt Count 225 (163-337) x10^3/uL MPV 10.9 (9.4-12.4) fL Gran % 81.6 H (34.0-67.9) % Immature Gran % (Auto) 0.5 H (0.001-0.429) % Nucleat RBC Rel Count 0.0 (0.00-0.2) % Eos # (Auto) 0.02 L (0.04-0.54) x10^3/uL Immature Gran # (Auto) 0.09 H (0.001-0.031) x10^3u/L Absolute Lymphs (auto) 1.73 (1.32-3.57) x10^3/uL Absolute Monos (auto) 1.18 H (0.30-0.82) x10^3/uL Absolute Nucleated RBC 0.00 (0.00-0.012) x10^3u/L Lymphocytes % 10.5 L (21.8-53.1) % Monocytes % 7.1 (5.3-12.2) % Eosinophils % 0.1 L (0.8-7.0) % Basophils % 0.2 (0.2-1.2) % Absolute Granulocytes 13.48 H (1.78-5.38) x10^3/uL Basophils # 0.04 (0.01-0.08) x10^3/uL D-Dimer (0.0-0.50) mg/L Sodium (135-145) mmol/L Potassium (3.5-5.1) mmol/L Chloride (98-107) mmol/L Carbon Dioxide (22-30) mmol/L Anion Gap (5-15) MEQ/L BUN (9-20) mg/dL Creatinine (0.66-1.25) mg/dL Estimated GFR ML/MIN Glucose (74-106) mg/dL POC Glucometer 201 H 125 H (74 to 106) mg/dL Calcium (8.4-10.2) mg/dL Magnesium (1.6-2.3) mg/dL Total Bilirubin (0.2-1.3) mg/dL AST (17-59) U/L ALT (0-50) U/L Alkaline Phosphatase (38-126) U/L Serum Total Protein (6.3-8.2) g/dL Albumin (3.5-5.0) g/dL Procalcitonin (0.030-0.080) ng/mL 07/30/24 07/30/24 Range/Units 07:05 07:05 WBC (4.23-9.07) x10^3/uL RBC (4.63-6.08) x10^6/uL Hgb (13.7-17.5) g/dL Hct (40.1-51.0) % MCV (79.0-92.2) fL MCH (25.7-32.2) pg MCHC (32.3-36.5) g/dL RDW (11.6-14.4) % Plt Count (163-337) x10^3/uL MPV (9.4-12.4) fL Gran % (34.0-67.9) % Immature Gran % (Auto) (0.001-0.429) % Nucleat RBC Rel Count (0.00-0.2) % Eos # (Auto) (0.04-0.54) x10^3/uL Immature Gran # (Auto) (0.001-0.031) x10^3u/L Absolute Lymphs (auto) (1.32-3.57) x10^3/uL Absolute Monos (auto) (0.30-0.82) x10^3/uL Absolute Nucleated RBC (0.00-0.012) x10^3u/L Lymphocytes % (21.8-53.1) % Monocytes % (5.3-12.2) % Eosinophils % (0.8-7.0) % Basophils % (0.2-1.2) % Absolute Granulocytes (1.78-5.38) x10^3/uL Basophils # (0.01-0.08) x10^3/uL D-Dimer 0.59 H (0.0-0.50) mg/L Sodium 139 (135-145) mmol/L Potassium 4.0 (3.5-5.1) mmol/L Chloride 103 (98-107) mmol/L Carbon Dioxide 30 (22-30) mmol/L Anion Gap 10.9 (5-15) MEQ/L BUN 22 H (9-20) mg/dL Creatinine 0.98 (0.66-1.25) mg/dL Estimated GFR 86.1 ML/MIN Glucose 127 H (74-106) mg/dL POC Glucometer (74 to 106) mg/dL Calcium 9.7 (8.4-10.2) mg/dL Magnesium 2.1 (1.6-2.3) mg/dL Total Bilirubin 0.70 (0.2-1.3) mg/dL AST 26 (17-59) U/L ALT 35 (0-50) U/L Alkaline Phosphatase 67 (38-126) U/L Serum Total Protein 8.3 H (6.3-8.2) g/dL Albumin 4.5 (3.5-5.0) g/dL Procalcitonin 0.060 (0.030-0.080) ng/mL Micro Results-Entire Visit: Accuchecks Date 07/30/24 Date 07/29/24 Date 07/29/24 Date 07/29/24 Time 06:59 Time 21:30 Time 16:49 Time 11:59 - Radiology Exams Ordered Rad Exams-Entire Visit: Radiology Procedures Category Date Time Status CHEST 1 VIEW (PORTABLE) Stat Exams 07/28/24 12:13 Completed CHEST WITH CONTRAST [CT] Stat Exams 07/28/24 15:27 Completed ECHO W/2D AND DOPPLER [US] Stat Exams 07/31/24 15:20 Ordered - Procedures and Test Procedures and Tests throughout Hospitalization: Therapy Orders & Screens 07/28/24 14:28 EKG REPEAT IN AM Comment: Oxygen Nasal Cannula 2 lpm Comment: 07/28/24 14:50 Smoking Cessation Education ONCE Comment: Diagnosis: new onset afib w rvr, covid, shortness of breath,chf Smoking Status: Current every day smoker How long have you smoked: 50 yrs Have you smoked in the past 12 months: Yes Approximately how many cigarettes per day: 1.5 Do you dip or chew tobacco: No 07/28/24 15:20 Respiratory Therapy Consult ROUTINE Comment: Reason For Exam: Diagnosis: new onset afib w rvr, covid, shortness of breath,chf Discharge Exam General Appearance: no apparent distress Neurologic Exam: alert, oriented x 3, cooperative Eye Exam: PERRL Ears, Nose, Throat Exam: normal ENT inspection Neck Exam: normal inspection Respiratory Exam: diminished breath sounds Cardiovascular Exam: irregular Gastrointestinal/Abdomen Exam: soft, normal bowel sounds Male Genitalia Exam: deferred Rectal Exam: deferred Back Exam: normal inspection Extremity Exam: normal inspection Skin Exam: normal color Final Diagnosis/Problem List - Final Discharge Diagnosis/Problem (1) Pneumonia due to COVID-19 virus Current Visit: Yes Status: Acute Code(s): U07.1 - COVID-19; J12.82 - PNEUMONIA DUE TO CORONAVIRUS DISEASE 2019 (2) Atrial fibrillation with RVR Current Visit: Yes Status: Acute Code(s): I48.91 - UNSPECIFIED ATRIAL FIBRILLATION (3) CHF exacerbation Current Visit: Yes Status: Acute Code(s): I50.9 - HEART FAILURE, UNSPECIFIED (4) HTN (hypertension) Current Visit: Yes Status: Acute Code(s): I10 - ESSENTIAL (PRIMARY) HYPERTENSION (5) Diabetes mellitus Current Visit: Yes Status: Acute Code(s): E11.9 - TYPE 2 DIABETES MELLITUS WITHOUT COMPLICATIONS (6) Hyperthyroidism Current Visit: Yes Status: Acute Code(s): E05.90 - THYROTOXICOSIS, UNSP WITHOUT THYROTOXIC CRISIS OR STORM - Discharge Disposition: Home, Self-Care Condition: Fair Prescriptions: New cefuroxime axetiL [Cefuroxime] 500 mg PO BID 7 Days #14 tablet dexAMETHasone [Dexamethasone] 6 mg PO DAILY 7 Days #7 tablet Apixaban [Eliquis] 5 mg PO BID 30 Days #60 tablet Furosemide 40 mg [Lasix 40 MG] 40 mg PO DAILY 30 Days #30 tablet Metoprolol Tartrate 50 mg [Lopressor 50 MG] 50 mg PO BID 30 Days #60 tablet PANTOPRAZOLE 40 mg Tablet [Protonix 40MG Tablet] 40 mg PO QAM 14 Days #14 tab Additional Instructions: Fitter Welder to call with PCP/Cardiology/Endocrinology appointments tomorrow Follow up with: DOCTOR,NO FAMILY [Primary Care Provider] -
[2024-07-30 11:32] VITALS: BP 157/102; PULSE 91; RESP 20; TEMP 98.7
== END 2024-07-30 14:00 | disposition home or self-care (01) | DRG 177 ==
LOC: ED 11:23 → MED SURG 14:27
PROVIDERS: ADMIT Internal Medicine; ATTEND Internal Medicine
DX: U07.1 COVID-19 (principal); J12.82 Pneumonia due to coronavirus disease 2019; I48.20 Chronic atrial fibrillation, unspecified; I11.0 Hypertensive heart disease with heart failure; I50.9 Heart failure, unspecified; F17.200 Nicotine dependence, unspecified, uncomplicated; I25.2 Old myocardial infarction; E11.9 Type 2 diabetes mellitus without complications; E05.90 Thyrotoxicosis, unspecified without thyrotoxic crisis or storm; Z79.899 Other long term (current) drug therapy
CPT/HCPCS: 0241U; 36415; 71045; 71260; 80053; 80061; 80307; 81001; 82947; 83036; 83721; 83735; 83880; 84145; 84436; 84443; 84481; 84484; 85025; 85379; 85610; 86308; 93005; 94760; 94762; 96374; 96375; 99285; 99291; J0456; J0696; J1100; J1160; J1650; J1817; J1940; Q3014; A9270-GY

== ENCOUNTER 2024-08-07 21:24 | Observation (INO) | payer SELFPAY ==
[2024-08-07] MEDS ORDERED: DUONEB 0.5-3 MG/3 ml Neb IH ONE (21:28)
[2024-08-07] MEDS: DUONEB 0.5-3 MG/3 ml Neb IH ONE (21:30)
[2024-08-07 21:56] LABS: Absolute Neutrophil Ct (ANC) 8.94 x10^3/uL (1.78-5.38); BASOPHIL % 0.3 % (0.2-1.2); Basophil (Absolute #) 0.05 x10^3/uL (0.01-0.08); Eosinophil (Absolute #) 0.44 x10^3/uL (0.04-0.54); Hematocrit 49.3 % (40.1-51.0); Hemoglobin 16.1 g/dL (13.7-17.5); IMMATURE GRAN # 0.17 x10^3u/L (0.001-0.031); IMMATURE GRAN % 1.2 % (0.001-0.429); Lymphocyte (Absolute #) 4.03 x10^3/uL (1.32-3.57); Lymphocytes % 27.3 % (21.8-53.1); Mean Cell Volume 94.1 fL (79.0-92.2); Mean Corpuscular Hemoglobin 30.7 pg (25.7-32.2); Mean Corpuscular Hgb Concent. 32.7 g/dL (32.3-36.5); Mean Platelet Volume 10.4 fL (9.4-12.4); Monocyte (Absolute #) 1.12 x10^3/uL (0.30-0.82); Monocytes % 7.6 % (5.3-12.2); NUCLEATED RBC # 0.02 x10^3u/L (0.00-0.012); NUCLEATED RBC % 0.1 % (0.00-0.2); Neutrophil % 60.6 % (34.0-67.9); Platelet Count 212 x10^3/uL (163-337); Red Blood Count 5.24 x10^6/uL (4.63-6.08); White Blood Count 14.8 x10^3/uL (4.23-9.07)
--- NOTE | 2024-08-07 21:56 | ERPHSYRPT ---
- History of Present Illness Time Seen by Provider: 08/07/24 21:50 Source: patient Exam Limitations: no limitations Patient Subjective Stated Complaint: pt states he was released from hospital approx 1 week ago with covid pneumonia. states today he has been short of breath , much worse over last hour Triage Nursing Assessment: . Physician History: 64-year-old male current smoker recently diagnosed with COVID-pneumonia released from our hospital approximately 1 week ago presents to our ED for evaluation of shortness of breath. Patient reports his shortness of breath has got progressively worse since his discharge from our hospital 1 week ago. No fever no nausea no vomiting no chest pain. Shortness of breath is progressive. Moderate in intensity. Shortness of breath worse with exertion. Symptoms improved with rest. No associated nausea vomiting or diaphoresis. Patient otherwise feels well. He voices no other complaints or concerns at this time. Portions of this note were created with voice recognition technology. There may be grammatical, spelling, punctuation or sound alike errors Timing/Duration: day(s) (7 days) Activities at Onset: activity Severity of Dyspnea-Max: moderate Possible Cause: occasional episodes Modifying Factors: Improves With: activity Associated Symptoms: denies symptoms Allergies/Adverse Reactions: tramadol Adverse Reaction (Mild, Verified 09/04/16 06:21) nausea/vomiting Hx Tetanus, Diphtheria Vaccination/Date Given: No (unsure) Hx Influenza Vaccination/Date Given: No Hx Pneumococcal Vaccination/Date Given: No Immunizations Up to Date: No Travel Risk - International Travel Have you traveled outside of the country in past 3 weeks: No - Emerging Infectious Disease Are you exhibiting symptoms associated with any current EIDs: No Symptoms: Cough: New Onset, Shortness of Breath, Other (Please Comment) Comment: chest pressure - Review of Systems Constitutional: No Symptoms, No Fever, No Chills Eyes: No Symptoms Ears, Nose, & Throat: No Symptoms Respiratory: No Symptoms, No Cough, No Dyspnea Cardiac: No Symptoms, No Chest Pain, No Edema, No Syncope Abdominal/Gastrointestinal: No Symptoms, No Abdominal Pain, No Nausea, No Vomiting, No Diarrhea Genitourinary Symptoms: No Symptoms, No Dysuria Musculoskeletal: No Symptoms, No Back Pain, No Neck Pain Skin: No Symptoms, No Rash Neurological: No Symptoms, No Dizziness, No Focal Weakness, No Sensory Changes Psychological: No Symptoms Endocrine: No Symptoms Hematologic/Lymphatic: No Symptoms Immunological/Allergic: No Symptoms All Other Systems: Reviewed and Negative - Past Medical History Pertinent Past Medical History: Yes Neurological History: Peripheral Neuropathy, Other ENT History: No Pertinent History Cardiac History: High Cholesterol, Hypertension Respiratory History: Pneumonia Endocrine Medical History: Diabetes Type II Musculoskeletal History: Arthritis, Other GI Medical History: No Pertinent History History: No Pertinent History Psycho-Social History: No Pertinent History Male Reproductive Disorders: No Pertinent History Other Medical History: 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 has a headache daily seeing neurologist for that. last week- covid pneumonia - Past Surgical History Past Surgical History: Yes Neuro Surgical History: No Pertinent History Cardiac: Cardiac Catheterization Respiratory: No Pertinent History Gastrointestinal: No Pertinent History Genitourinary: No Pertinent History Musculoskeletal: Other Male Surgical History: No Pertinent History Other Surgical History: torn right miniscus repaired Significant Family History: heart disease, cancer - Social History Smoking Status: Current every day smoker How long have you smoked: 50 yrs Exposure to second hand smoke: No Drug Use: none Patient Lives Alone: No - Social Determinants of Health Will the patient participate in the screening: Declined to provide Do you worry about a steady place to live?: No In the past 12 months,have you had to go without utilities?: No Transportation Issues: No Has anyone in your support network made you feel unsafe?: No Have you or anyone in your house had to go without enough: No - Nursing Vital Signs Nursing Vital Signs: Initial Vital Signs Temperature 97.8 F 08/07/24 21:27 Pulse Rate 102 H 08/07/24 21:27 Respiratory Rate 22 08/07/24 21:27 Blood Pressure 176/124 08/07/24 21:27 O2 Sat by Pulse Oximetry 96 08/07/24 21:27 Pain Scale Pain Intensity 2 - Physical Exam General Appearance: no apparent distress, alert Eye Exam: PERRL/EOMI, eyes nml inspection Ears, Nose, Throat Exam: hearing grossly normal, normal ENT inspection, normal pharynx Neck Exam: normal inspection, supple Respiratory Exam: diminished breath sounds, rhonchi, wheezing Cardiovascular/Chest Exam: normal heart sounds, regular rate/rhythm Abdominal/Gastrointestinal Exam: soft, No tenderness, No distention, No mass Extremity Exam: non-tender, normal range of motion, normal inspection, no calf tenderness, no pedal edema Neurologic Exam: alert, oriented x 3, cooperative, 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, sensation nml, No motor deficits Skin Exam: normal color, warm, No dry SpO2 Interpretation: normal SpO2: 95 O2 Delivery: Room Air - Course Nursing assessment & vital signs reviewed: Yes EKG Interpreted by Me: RATE (99), A-fib, NORMAL AXIS, NORMAL QRS (Patient has chronic A-fib on Eliquis) Ordered Tests: Active Orders 24 hr Category Date Time Status Ceo & Founder STAT Care 08/07/24 21:51 Active EKG-ER Only STAT Care 08/07/24 21:51 Active IV Insertion STAT Care 08/07/24 21:51 Active Pulse Oximetry (ED) STAT Care 08/07/24 21:51 Active CHEST 1 VIEW (PORTABLE) Stat Exams 08/07/24 22:30 Taken ABG [ARTERIAL BLOOD GASES] Stat Lab 08/07/24 22:51 Ordered BLOOD CULTURE Stat Lab 08/07/24 21:45 Received CBC W DIFF Stat Lab 08/07/24 21:35 Completed CMP Stat Lab 08/07/24 21:35 Completed D-DIMER QUANTITATIVE Stat Lab 08/07/24 21:35 Completed NT PRO BNPII Stat Lab 08/07/24 21:35 Completed TROPONIN Q4H Lab 08/07/24 21:35 Completed TROPONIN Q4H Lab 08/08/24 02:00 Ordered TROPONIN Q4H Lab 08/08/24 06:00 Ordered Respiratory Therapy Assessment DAILY RT 08/07/24 21:30 Active Transfer Order Routine Transfer 08/07/24 Ordered Medication Summary Generic Name Dose Route Start Last Admin Trade Name Freq PRN Reason Stop Dose Admin Azithromycin 500 mg in 250 mls @ 250 mls/hr 08/07/24 22:28 Zithromax 500 Mg/ 250 Ml Nacl Premix IV 08/07/24 23:27 STAT STA Discontinued Medications Generic Name Dose Route Start Last Admin Trade Name Freq PRN Reason Stop Dose Admin Albuterol/Ipratropium Confirm 08/07/24 21:28 Ipratropium/Albuterol Sulfate 3 Ml Ampul.Neb Administered 08/07/24 21:29 Dose 3 ml IH .STK-MED ONE Albuterol/Ipratropium 3 ml 08/07/24 21:30 08/07/24 21:30 Ipratropium/Albuterol Sulfate 3 Ml Ampul.Neb IH 08/07/24 21:31 3 ml STAT ONE Administration Methylprednisolone Sodium 0 mg 08/07/24 21:53 08/07/24 22:01 Succinate 125 mg/ Sterile IV 08/07/24 21:54 125 mg Water 2 ml STAT ONE Administration Ceftriaxone Sodium 2 gm in 100 mls @ 200 mls/hr 08/07/24 22:28 08/07/24 22:49 Rocephin 2 Gm/100 Ml Nacl IV 08/07/24 22:57 200 ml/hr STAT ONE 200 mls/hr Administration Ceftriaxone Sodium Confirm 08/07/24 22:47 Rocephin 2 Gm/100 Ml Nacl Administered 08/07/24 22:48 Dose 2 gm in 100 mls @ ud IV .STK-MED ONE Methylprednisolone Sodium Succinate Confirm 08/07/24 22:00 Methylprednis Sod Succ 125 Mg/2 Ml Vial Administered 08/07/24 22:01 Dose 125 mg .ROUTE .STK-MED ONE Sterile Water Confirm 08/07/24 22:00 Water For Injection,Sterile 10 Ml Vial Administered 08/07/24 22:01 Dose 10 ml IJ .STK-MED ONE Lab/Rad Data: Laboratory Result Diagrams 08/07/24 21:35 08/07/24 21:35 Laboratory Results 08/07/24 08/07/24 08/07/24 Range/Units 21:45 21:35 21:35 WBC (4.23-9.07) x10^3/uL RBC (4.63-6.08) x10^6/uL Hgb (13.7-17.5) g/dL Hct (40.1-51.0) % MCV (79.0-92.2) fL MCH (25.7-32.2) pg MCHC (32.3-36.5) g/dL RDW (11.6-14.4) % Plt Count (163-337) x10^3/uL MPV (9.4-12.4) fL Gran % (34.0-67.9) % Immature Gran % (Auto) (0.001-0.429) % Nucleat RBC Rel Count (0.00-0.2) % Eos # (Auto) (0.04-0.54) x10^3/uL Immature Gran # (Auto) (0.001-0.031) x10^3u/L Absolute Lymphs (auto) (1.32-3.57) x10^3/uL Absolute Monos (auto) (0.30-0.82) x10^3/uL Absolute Nucleated RBC (0.00-0.012) x10^3u/L Lymphocytes % (21.8-53.1) % Monocytes % (5.3-12.2) % Eosinophils % (0.8-7.0) % Basophils % (0.2-1.2) % Absolute Granulocytes (1.78-5.38) x10^3/uL Basophils # (0.01-0.08) x10^3/uL D-Dimer 0.32 (0.0-0.50) mg/L Sodium (135-145) mmol/L Potassium (3.5-5.1) mmol/L Chloride (98-107) mmol/L Carbon Dioxide (22-30) mmol/L Anion Gap (5-15) MEQ/L BUN (9-20) mg/dL Creatinine (0.66-1.25) mg/dL Estimated GFR ML/MIN Glucose (74-106) mg/dL Calcium (8.4-10.2) mg/dL Total Bilirubin (0.2-1.3) mg/dL AST (17-59) U/L ALT (0-50) U/L Alkaline Phosphatase (38-126) U/L Troponin I < 0.012 (0.000-0.033) ng/mL NT-Pro-B Natriuret Pep (<300) pg/mL Serum Total Protein (6.3-8.2) g/dL Albumin (3.5-5.0) g/dL Influenza Type A Ag NEGATIVE (NEGATIVE) Influenza Type B Ag NEGATIVE (NEGATIVE) RSV (PCR) NEGATIVE (NEGATIVE) SARS-CoV-2 (PCR) NEGATIVE (NEGATIVE) 08/07/24 08/07/24 Range/Units 21:35 21:35 WBC 14.8 H (4.23-9.07) x10^3/uL RBC 5.24 (4.63-6.08) x10^6/uL Hgb 16.1 (13.7-17.5) g/dL Hct 49.3 (40.1-51.0) % MCV 94.1 H (79.0-92.2) fL MCH 30.7 (25.7-32.2) pg MCHC 32.7 (32.3-36.5) g/dL RDW 14.0 (11.6-14.4) % Plt Count 212 (163-337) x10^3/uL MPV 10.4 (9.4-12.4) fL Gran % 60.6 (34.0-67.9) % Immature Gran % (Auto) 1.2 H (0.001-0.429) % Nucleat RBC Rel Count 0.1 (0.00-0.2) % Eos # (Auto) 0.44 (0.04-0.54) x10^3/uL Immature Gran # (Auto) 0.17 H (0.001-0.031) x10^3u/L Absolute Lymphs (auto) 4.03 H (1.32-3.57) x10^3/uL Absolute Monos (auto) 1.12 H (0.30-0.82) x10^3/uL Absolute Nucleated RBC 0.02 H (0.00-0.012) x10^3u/L Lymphocytes % 27.3 (21.8-53.1) % Monocytes % 7.6 (5.3-12.2) % Eosinophils % 3.0 (0.8-7.0) % Basophils % 0.3 (0.2-1.2) % Absolute Granulocytes 8.94 H (1.78-5.38) x10^3/uL Basophils # 0.05 (0.01-0.08) x10^3/uL D-Dimer (0.0-0.50) mg/L Sodium 141 (135-145) mmol/L Potassium 3.5 (3.5-5.1) mmol/L Chloride 103 (98-107) mmol/L Carbon Dioxide 34 H (22-30) mmol/L Anion Gap 8.6 (5-15) MEQ/L BUN 24 H (9-20) mg/dL Creatinine 0.96 (0.66-1.25) mg/dL Estimated GFR 88.3 ML/MIN Glucose 140 H (74-106) mg/dL Calcium 8.8 (8.4-10.2) mg/dL Total Bilirubin 0.40 (0.2-1.3) mg/dL AST 48 (17-59) U/L ALT 64 H (0-50) U/L Alkaline Phosphatase 60 (38-126) U/L Troponin I (0.000-0.033) ng/mL NT-Pro-B Natriuret Pep 1970 (<300) pg/mL Serum Total Protein 6.8 (6.3-8.2) g/dL Albumin 3.9 (3.5-5.0) g/dL Influenza Type A Ag (NEGATIVE) Influenza Type B Ag (NEGATIVE) RSV (PCR) (NEGATIVE) SARS-CoV-2 (PCR) (NEGATIVE) - Progress Progress: improved Air Movement: good Progress Note: Case discussed with hospitalist who accepts admission to observation. He requests ABG prior to going up to the floor. Patient is a 64-year-old male presents to emergency department for evaluation of shortness of breath. Physical exam reveals diminished breath sounds coarse breath sounds wheezes throughout both lung cleary. Patient received a DuoNeb treatment. Symptoms significantly improved. Solu-Medrol antibiotics administered. Patient not ready for discharge. He is still wheezing considerably and coarse as well. Chest x-ray ordered. Formal read pending. Vital stable. 08/07/24 22:55 Case discussed with hospitalist who accepts admission at 10:[address] Morris request ABG. Plan of care discussed with patient. He agrees to admission at [facility] for further evaluation and treatment. Portions of this note were created with voice recognition technology. There may be grammatical, spelling, punctuation or sound alike errors Complexity of problem addressed is moderate acute complicated. No critical care time. Complexity of data reviewed and analyzed is extensive. Test ordered chest reviewed results analyzed and correlated clinically with history and physical exam. Management discussed with hospitalist who accepts admission to observation. Risk of complication and or risk of morbidity/mortality of patient management is high. Vital stable. Time spent to admit patient approximately 15 minutes. Plan of care established for shared decision making. No social determinants of health present to impede follow-up. Portions of this note were created with voice recognition technology. There may be grammatical, spelling, punctuation or sound alike errors 08/07/24 23:00 Blood Culture(s) Obtained: Yes Antibiotics given: Yes Counseled pt/family regarding: lab results, diagnosis, rad results - Departure Departure Disposition: Observation Clinical Impression: Shortness of breath, COPD exacerbation, Leukocytosis Condition: Stable Critical Care Time: No Referrals: DOCTOR,NO FAMILY [Primary Care Provider] - Follow up/PCP as directed Instructions: Chronic Obstructive Pulmonary Disease
[2024-08-07] MEDS ORDERED: solu-MEDROL ONE (22:00)
[2024-08-07] MEDS ORDERED: Sterile H2O 10 ml IJ ONE (22:00)
[2024-08-07] MEDS: solu-MEDROL 125 MG, Sterile H2O 10 ml 2 ML IV ONE (22:01)
[2024-08-07 22:18] LABS: ALBUMIN 3.9 g/dL (3.5-5.0); ANION GAP 8.6 MEQ/L (5-15); BILIRUBIN,TOTAL 0.4 mg/dL (0.2-1.3); Calcium 8.8 mg/dL (8.4-10.2); Creatinine 1 0.96 mg/dL (0.66-1.25); EST GLOMERULAR FILTRATION RATE 88.3 ML/MIN; Potassium 3.5 mmol/L (3.5-5.1); Total Protein 6.8 g/dL (6.3-8.2)
[2024-08-07 22:39] LABS: INFLUENZA A NEGATIVE (NEGATIVE); INFLUENZA B NEGATIVE (NEGATIVE); RESPIRATORY SYNCTIAL VIRUS NEGATIVE (NEGATIVE); SARS-CoV-2 Xpert Express NEGATIVE (NEGATIVE)
[2024-08-07] MEDS ORDERED: ROCEPHIN 2 GM/100 ML NACL 2 GM/100 ML IVPB IV ONE (22:47)
[2024-08-07] MEDS: ROCEPHIN 2 GM/100 ML NACL 2 GM/100 ML IVPB IV ONE (22:49)
[2024-08-07] MEDS ORDERED: Zithromax 500 MG/ 250 ML NaCl Premix 500 MG/250 ML IVPB IV ONE (23:06)
[2024-08-07] MEDS: Zithromax 500 MG/ 250 ML NaCl Premix 500 MG/250 ML IVPB IV STA (23:12)
--- NOTE | 2024-08-07 23:19 | XRAY ---
CLINICAL HISTORY: sob COMPARISON: No prior studies are available for comparison. TECHNIQUE: An X-ray image of the chest is obtained using an AP portable projection. FINDINGS: Pulmonary Parenchyma: The mild prominence of broncho-vascular markings is probably due to pulmonary vascular congestion. Possible infiltrates in the right lower zone. There is no evidence of consolidation, or collapse. No pulmonary nodules are identified. There is no evidence of pleural effusion or pleural thickening. Heart and Mediastinum: Heart size is enlarged. The mediastinal widening can be projectional. No hilar or mediastinal lymphadenopathy. Bony Thorax: The bony thorax appears intact without fractures or deformities. Soft Tissues: Soft tissues overlying the chest wall are unremarkable. IMPRESSION: 1. Enlarged heart with mild prominence of broncho-vascular markings probably due to pulmonary vascular congestion. 2. Possible infiltrates in the right lower zone. Clinical correlation is suggested. Electronically Signed by: Jenifer Snell MD. (08/07/2024 23:14:22 EST)
[2024-08-07 23:24] LABS: VBG BASE EXCESS 14.4 (-2.0-2.0); VBG CARBOXYHEMOGLOBIN 6.2 % T HGB (0.0-6.9); VBG HCO3- 42.8 meq/L (22-28); VBG HEMOGLOBIN 16.1; VBG O2 SATURATION 74.3 (95-100); VBG POTASSIUM 3.9 (3.5-5.1); VBG pH 7.42 (7.32-7.42)
--- NOTE | 2024-08-08 01:43 | PCM.HP ---
History of Present Illness - Chief Complaint Chief Complaint: shortness of breath, COPD exacerbation, leukocytosis Date: 08/07/24 History of Present Illness: is a 64 year old male COPD, tobacco abuse, DM2 who presents to ED with SOB, cough x 2 days. + clear sputum. + subjective fever Came to ED. Found to have pulmonary vascular congestion +/- pna on cxr. - Review of Systems Additional Findings: ROS: All other ROS is negative unless mentioned above. Medications & Allergies Home Medications: Home Medication List Apixaban [Eliquis] 5 mg PO BID 30 Days #60 tablet 07/30/24 [Rx Confirmed 08/07/24] Furosemide 40 mg [Lasix 40 MG] 40 mg PO DAILY 30 Days #30 tablet 07/30/24 [Rx Confirmed 08/07/24] Metoprolol Tartrate 50 mg [Lopressor 50 MG] 50 mg PO BID 30 Days #60 tablet 07/30/24 [Rx Confirmed 08/07/24] PANTOPRAZOLE 40 mg Tablet [Protonix 40MG Tablet] 40 mg PO QAM 14 Days #14 tab 07/30/24 [Rx Confirmed 08/07/24] Allergies/Adverse Reactions: Allergies Allergy/AdvReac Type Severity Reaction Status Date / Time tramadol AdvReac Mild nausea/vomi Verified 08/07/24 23:27 ting - Past Medical History Past Medical History: Yes Neurological History: Peripheral Neuropathy, Other ENT History: No Pertinent History Cardiac History: High Cholesterol, Hypertension Respiratory History: Pneumonia Endocrine Medical History: Diabetes Type II Musculoskelatal History: Arthritis, Other GI Medical History: No Pertinent History History: No Pertinent History Pyscho-Social History: No Pertinent History Male Reproductive Disorders: No Pertinent History Comment: 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 has a headache daily seeing neurologist for that. last week- covid pneumonia - Past Surgical History Past Surgical History: Yes Neuro Surgical History: No Pertinent History Cardiac History: Cardiac Catheterization Respiratory Surgery: No Pertinent History GI Surgical History: No Pertinent History Genitourinary Surgical Hx: No Pertinent History Musculskeletal Surgical Hx: Other Male Surgical History: No Pertinent History Other Surgical History: torn right miniscus repaired Significant Family History: heart disease, cancer - Social History Smoking Status: Current every day smoker How long have you smoked: 50 years Exposure to second hand smoke: No Alcohol: Occasionally Drug Use: none - Social Determinants of Health Will the patient participate in the screening: Declined to provide Do you worry about a steady place to live?: No In the past 12 months,have you had to go without utilities?: No Have you or anyone in your house had to go without enough: No Transportation Issues: No Has anyone in your support network made you feel unsafe?: No - Physical Exam Vital Signs: Vital Signs - 24 hr Temp Pulse Resp BP BP Pulse Ox 08/08/24 00:25 88 18 93 L 08/07/24 23:34 97.3 F 97 H 22 162/107 95 08/07/24 23:13 91 H 90 L 08/07/24 23:04 95 08/07/24 23:00 86 27 H 159/113 94 L 08/07/24 22:30 88 19 138/107 95 08/07/24 22:00 90 22 150/103 94 L 08/07/24 21:59 93 L 08/07/24 21:30 101 H 24 158/110 91 L 08/07/24 21:27 97.8 F 102 H 26 H 176/124 96 General Appearance: no apparent distress Neurologic Exam: alert, oriented x 3, cooperative Eye Exam: PERRL/EOMI, scleral icterus Ears, Nose, Throat Exam: normal ENT inspection, pharynx normal, moist mucous membranes Neck Exam: normal inspection, non-tender, supple, full range of motion Respiratory Exam: diminished breath sounds, prolonged expirations, crackles/rales, wheezing Cardiovascular Exam: regular rate/rhythm, normal heart sounds, normal peripheral pulses Gastrointestinal/Abdomen Exam: soft, normal bowel sounds Back Exam: normal inspection, normal range of motion Extremity Exam: normal inspection, normal range of motion Skin Exam: normal color, warm Results - Labs Lab/Micro Results: Lab Results-Last 24 Hours 08/07/24 08/07/24 08/07/24 Range/Units 21:35 21:35 21:35 WBC 14.8 H (4.23-9.07) x10^3/uL RBC 5.24 (4.63-6.08) x10^6/uL Hgb 16.1 (13.7-17.5) g/dL Hct 49.3 (40.1-51.0) % MCV 94.1 H (79.0-92.2) fL MCH 30.7 (25.7-32.2) pg MCHC 32.7 (32.3-36.5) g/dL RDW 14.0 (11.6-14.4) % Plt Count 212 (163-337) x10^3/uL MPV 10.4 (9.4-12.4) fL Gran % 60.6 (34.0-67.9) % Immature Gran % (Auto) 1.2 H (0.001-0.429) % Nucleat RBC Rel Count 0.1 (0.00-0.2) % Eos # (Auto) 0.44 (0.04-0.54) x10^3/uL Immature Gran # (Auto) 0.17 H (0.001-0.031) x10^3u/L Absolute Lymphs (auto) 4.03 H (1.32-3.57) x10^3/uL Absolute Monos (auto) 1.12 H (0.30-0.82) x10^3/uL Absolute Nucleated RBC 0.02 H (0.00-0.012) x10^3u/L Lymphocytes % 27.3 (21.8-53.1) % Monocytes % 7.6 (5.3-12.2) % Eosinophils % 3.0 (0.8-7.0) % Basophils % 0.3 (0.2-1.2) % Absolute Granulocytes 8.94 H (1.78-5.38) x10^3/uL Basophils # 0.05 (0.01-0.08) x10^3/uL D-Dimer 0.32 (0.0-0.50) mg/L pO2/FiO2 Ratio % VBG pH (7.32-7.42) VBG pCO2 at Pat Temp (42-55) mm/Hg VBG pO2 at Pat Temp (25-40) mm/Hg VBG HCO3 (22-28) meq/L VBG O2 Sat (Samina) (95-100) VBG Base Excess (-2.0-2.0) VBG Hemoglobin VBG Carboxyhemoglobin (0.0-6.9) % T HGB POC Potassium (3.5-5.1) Sodium 141 (135-145) mmol/L Potassium 3.5 (3.5-5.1) mmol/L Chloride 103 (98-107) mmol/L Carbon Dioxide 34 H (22-30) mmol/L Anion Gap 8.6 (5-15) MEQ/L BUN 24 H (9-20) mg/dL Creatinine 0.96 (0.66-1.25) mg/dL Estimated GFR 88.3 ML/MIN Glucose 140 H (74-106) mg/dL Calcium 8.8 (8.4-10.2) mg/dL Total Bilirubin 0.40 (0.2-1.3) mg/dL AST 48 (17-59) U/L ALT 64 H (0-50) U/L Alkaline Phosphatase 60 (38-126) U/L Troponin I (0.000-0.033) ng/mL NT-Pro-B Natriuret Pep 1970 (<300) pg/mL Serum Total Protein 6.8 (6.3-8.2) g/dL Albumin 3.9 (3.5-5.0) g/dL Influenza Type A Ag (NEGATIVE) Influenza Type B Ag (NEGATIVE) RSV (PCR) (NEGATIVE) SARS-CoV-2 (PCR) (NEGATIVE) 08/07/24 08/07/24 08/07/24 Range/Units 21:35 21:45 23:20 WBC (4.23-9.07) x10^3/uL RBC (4.63-6.08) x10^6/uL Hgb (13.7-17.5) g/dL Hct (40.1-51.0) % MCV (79.0-92.2) fL MCH (25.7-32.2) pg MCHC (32.3-36.5) g/dL RDW (11.6-14.4) % Plt Count (163-337) x10^3/uL MPV (9.4-12.4) fL Gran % (34.0-67.9) % Immature Gran % (Auto) (0.001-0.429) % Nucleat RBC Rel Count (0.00-0.2) % Eos # (Auto) (0.04-0.54) x10^3/uL Immature Gran # (Auto) (0.001-0.031) x10^3u/L Absolute Lymphs (auto) (1.32-3.57) x10^3/uL Absolute Monos (auto) (0.30-0.82) x10^3/uL Absolute Nucleated RBC (0.00-0.012) x10^3u/L Lymphocytes % (21.8-53.1) % Monocytes % (5.3-12.2) % Eosinophils % (0.8-7.0) % Basophils % (0.2-1.2) % Absolute Granulocytes (1.78-5.38) x10^3/uL Basophils # (0.01-0.08) x10^3/uL D-Dimer (0.0-0.50) mg/L pO2/FiO2 Ratio 21.0 % VBG pH 7.42 (7.32-7.42) VBG pCO2 at Pat Temp 66 H* (42-55) mm/Hg VBG pO2 at Pat Temp 38 (25-40) mm/Hg VBG HCO3 42.8 H* (22-28) meq/L VBG O2 Sat (Samina) 74.3 L (95-100) VBG Base Excess 14.4 H (-2.0-2.0) VBG Hemoglobin 16.1 VBG Carboxyhemoglobin 6.2 (0.0-6.9) % T HGB POC Potassium 3.9 (3.5-5.1) Sodium (135-145) mmol/L Potassium (3.5-5.1) mmol/L Chloride (98-107) mmol/L Carbon Dioxide (22-30) mmol/L Anion Gap (5-15) MEQ/L BUN (9-20) mg/dL Creatinine (0.66-1.25) mg/dL Estimated GFR ML/MIN Glucose (74-106) mg/dL Calcium (8.4-10.2) mg/dL Total Bilirubin (0.2-1.3) mg/dL AST (17-59) U/L ALT (0-50) U/L Alkaline Phosphatase (38-126) U/L Troponin I < 0.012 (0.000-0.033) ng/mL NT-Pro-B Natriuret Pep (<300) pg/mL Serum Total Protein (6.3-8.2) g/dL Albumin (3.5-5.0) g/dL Influenza Type A Ag NEGATIVE (NEGATIVE) Influenza Type B Ag NEGATIVE (NEGATIVE) RSV (PCR) NEGATIVE (NEGATIVE) SARS-CoV-2 (PCR) NEGATIVE (NEGATIVE) - Radiology Impressions Radiology Exams & Impressions: Radiology Procedures Category Date Time Status CHEST 1 VIEW (PORTABLE) Stat Exams 08/07/24 22:30 Completed - Other Procedures and Tests Respiratory Therapy 08/07/24 21:30 Respiratory Therapy Assessment DAILY 08/08/24 01:03 Oxygen Nasal Cannula 2 lpm 08/08/24 01:12 EKG ROUTINE Assessment/Plan (1) COPD exacerbation Current Visit: Yes Status: Acute Assessment & Plan: - iv steroids - ics - duonebs prn Code(s): J44.1 - CHRONIC OBSTRUCTIVE PULMONARY DISEASE W (ACUTE) EXACERBATION (2) Atrial fibrillation with RVR Current Visit: No Status: Acute Assessment & Plan: - tele - continue metop and eliquis Code(s): I48.91 - UNSPECIFIED ATRIAL FIBRILLATION (3) CHF exacerbation Current Visit: No Status: Acute Qualifiers: Heart failure type: unspecified Qualified Code(s): I50.9 - Heart failure, unspecified Assessment & Plan: - iv lasix 40mg iv x 1 - updated TTE Code(s): I50.9 - HEART FAILURE, UNSPECIFIED (4) Tobacco abuse Current Visit: Yes Status: Acute Assessment & Plan: - counseled - nrt Code(s): Z72.0 - TOBACCO USE (5) Pneumonia Current Visit: Yes Status: Acute Qualifiers: Pneumonia type: due to unspecified organism Laterality: unspecified laterality Assessment & Plan: - follow up blood cxs - covid/flu/rsv negative - ctx and azithro (ekg for qtc monitoring) Code(s): J18.9 - PNEUMONIA, UNSPECIFIED ORGANISM (6) HTN (hypertension) Current Visit: No Status: Acute Qualifiers: Hypertension type: primary hypertension Qualified Code(s): I10 - Essential (primary) hypertension Assessment & Plan: - continue home meds Code(s): I10 - ESSENTIAL (PRIMARY) HYPERTENSION (7) Diabetes mellitus Current Visit: No Status: Acute Qualifiers: Diabetes mellitus type: type 2 Diabetes mellitus snf insulin use: without supervisor intermediates use Assessment & Plan: - sliding scale insulin Code(s): E11.9 - TYPE 2 DIABETES MELLITUS WITHOUT COMPLICATIONS (8) On deep vein thrombosis (DVT) prophylaxis Current Visit: Yes Status: Acute Assessment & Plan: - on eliquis Code(s): Z79.899 - OTHER BUNCH MAKER HAND (CURRENT) DRUG THERAPY Telemedicine Encounter - Telemedicine Encounter Telemedicine Encounter: "The entirety of this encounter was performed via Telemedicine" This visit was performed using real-time audio and video connection between my location and thepatients locationwith the assistance of a surrogateat the patients location. Written or verbal consent was obtained from the patient/guardian to perform this [facility] technology. Any patient questions regarding the telemedicine interaction were answered. Patient was located in [facility] and I was located in [place], [place].
[2024-08-08] MEDS: DUONEB 0.5-3 MG/3 ml Neb IH SCH (03:11)
[2024-08-08] MEDS: Lasix 40 MG/4 ML IV ONE (03:12)
[2024-08-08] MEDS: Nicoderm CQ 21 MG TOP SCH (03:12)
[2024-08-08 05:13] LABS: ANION GAP 7.6 MEQ/L (5-15); Calcium 8.6 mg/dL (8.4-10.2); Creatinine 1 0.94 mg/dL (0.66-1.25); EST GLOMERULAR FILTRATION RATE 90.5 ML/MIN
[2024-08-08] MEDS ORDERED: solu-MEDROL ONE (05:32)
[2024-08-08] MEDS ORDERED: Sterile H2O 10 ml IJ ONE (05:32)
[2024-08-08] MEDS: solu-MEDROL 40 MG, Sterile H2O 10 ml 1 ML IV SCH (05:40)
[2024-08-08] MEDS: PULMICORT 0.5 MG/2 ML RESPULES IH SCH (07:04)
[2024-08-08 07:33] LABS: Absolute Neutrophil Ct (ANC) 9.83 x10^3/uL (1.78-5.38); BASOPHIL % 0.3 % (0.2-1.2); Basophil (Absolute #) 0.03 x10^3/uL (0.01-0.08); Eosinophil % 0.9 % (0.8-7.0); Hematocrit 50.5 % (40.1-51.0); IMMATURE GRAN # 0.12 x10^3u/L (0.001-0.031); IMMATURE GRAN % 1.1 % (0.001-0.429); Lymphocyte (Absolute #) 0.92 x10^3/uL (1.32-3.57); Lymphocytes % 8.2 % (21.8-53.1); Mean Cell Volume 95.5 fL (79.0-92.2); Mean Corpuscular Hemoglobin 30.2 pg (25.7-32.2); Mean Corpuscular Hgb Concent. 31.7 g/dL (32.3-36.5); Mean Platelet Volume 10.8 fL (9.4-12.4); Monocyte (Absolute #) 0.16 x10^3/uL (0.30-0.82); Monocytes % 1.4 % (5.3-12.2); Neutrophil % 88.1 % (34.0-67.9); Platelet Count 207 x10^3/uL (163-337); Red Blood Count 5.29 x10^6/uL (4.63-6.08); Red Cell Distribution Width 14.1 % (11.6-14.4); White Blood Count 11.2 x10^3/uL (4.23-9.07)
[2024-08-08] MEDS: HUMALOG SQ SCH (08:21)
[2024-08-08] MEDS: ELIQUIS 2.5 MG TABLET PO SCH (08:45)
[2024-08-08] MEDS: Lasix 40 MG/4 ML IV SCH (08:46)
[2024-08-08] MEDS: Protonix 40MG Tablet PO SCH (08:46)
[2024-08-08] MEDS: Lopressor 50 MG PO SCH ×2 (08:46→21:02)
[2024-08-08] MEDS: Lopressor 50 MG PO ONE (09:58)
[2024-08-08] MEDS: Lanoxin 0.125MG TABLET PO SCH (09:59)
[2024-08-08] MEDS ORDERED: NON-FORMULARY ITEM (Apixaban [Eliquis] 5 MG Tablet) PO SCH (10:00)
--- NOTE | 2024-08-08 12:00 | PCM.NOTE ---
is a 64 year old male COPD, tobacco abuse, DM2 who presents to ED with SOB, cough x 2 days. + clear sputum. + subjective fever Came to ED. Found to have pulmonary vascular congestion +/- pna on cxr. HR in the 130's. Added lasix, increased metoprolol to 100 mg bid and digoxin 0.25mg daily. Echo pending.
[2024-08-08] MEDS: Cordarone 150 MG/3 ML Injection*** 150 MG in D5w 100ML Mini Bag 100 ML 100 ML IV ONE (16:21)
[2024-08-08] MEDS: NEXTERONE 360 MG/200 ML BAG 360 MG/200 ML PLAST..BAG IV SCH (16:30)
--- NOTE | 2024-08-08 18:18 | PCM.CONS ---
History of Present Illness - Date of Consult Consulting Margin Trimmer: ARYAN HOANG MD Requesting Provider: Attending Provider: DORA VALLADARES MD Primary Care Provider: PCP: NO FAMILY DOCTOR - Consult Narrative Reason for Consult: PAF and sob HPI: Patient is a 64M who was recently admitted last week for covid, pna, and paf who presents with shortness of breath and tacycardia. On his last admission he newly diagnosed with PAF. He returns with worsening sob and heart rates in 120 in PAF. He feeels better now denies fevers, chills, nausea, vomiting, diarrhea, syncope, presyncope, dysphagia,odynophagia, orthopnea, paroxysmal nocturnal dyspnea, shortness of breath, chest pain, refluxsymptoms, belly pain, dysuria, hematuria, melena, hematochezia, seizures, paralysis, or other neurological changes. All other systems have been reviewed and are negative. His rate remains in the 130s despite oral bb cc:: The requesting physician will be sent a copy of the consult. - Past Medical History Past Medical History: Yes Neurological History: Peripheral Neuropathy, Other ENT History: No Pertinent History Cardiac History: High Cholesterol, Hypertension Respiratory History: Pneumonia Endocrine Medical History: Diabetes Type II Musculoskelatal History: Arthritis, Other GI Medical History: No Pertinent History History: No Pertinent History Pyscho-Social History: No Pertinent History Male Reproductive Disorders: No Pertinent History Comment: 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 has a headache daily seeing neurologist for that. last week- covid pneumonia - Past Surgical History Past Surgical History: Yes Neuro Surgical History: No Pertinent History Cardiac History: Cardiac Catheterization Respiratory Surgery: No Pertinent History GI Surgical History: No Pertinent History Genitourinary Surgical Hx: No Pertinent History Musculskeletal Surgical Hx: Other Male Surgical History: No Pertinent History Other Surgical History: torn right miniscus repaired Significant Family History: heart disease, cancer - Social History Smoking Status: Current every day smoker How long have you smoked: 50 years Exposure to second hand smoke: No Alcohol: Occasionally Drug Use: none - Social Determinants of Health Will the patient participate in the screening: Declined to provide Do you worry about a steady place to live?: No In the past 12 months,have you had to go without utilities?: No Have you or anyone in your house had to go without enough: No Transportation Issues: No Has anyone in your support network made you feel unsafe?: No Medications & Allergies Home Medications: Home Medication List Apixaban [Eliquis] 5 mg PO BID 30 Days #60 tablet 07/30/24 [Rx Confirmed 08/07/24] Furosemide 40 mg [Lasix 40 MG] 40 mg PO DAILY 30 Days #30 tablet 07/30/24 [Rx Confirmed 08/07/24] Metoprolol Tartrate 50 mg [Lopressor 50 MG] 50 mg PO BID 30 Days #60 tablet 07/30/24 [Rx Confirmed 08/07/24] PANTOPRAZOLE 40 mg Tablet [Protonix 40MG Tablet] 40 mg PO QAM 14 Days #14 tab 07/30/24 [Rx Confirmed 08/07/24] Allergies/Adverse Reactions: Allergies Allergy/AdvReac Type Severity Reaction Status Date / Time tramadol AdvReac Mild nausea/vomi Verified 08/07/24 23:27 ting Exam - Vitals Vital Signs: Vital Signs - 24 hr Temp Pulse Resp BP BP Pulse Ox 08/08/24 18:01 98 H 20 140/90 90 L 08/08/24 18:00 110 H 25 H 150/101 94 L 08/08/24 17:02 97.6 F 114 H 23 131/95 95 08/08/24 16:16 113 H 24 152/99 94 L 08/08/24 16:10 116 H 08/08/24 16:00 119 H 17 08/08/24 15:50 126 H 19 08/08/24 15:40 119 H 08/08/24 15:30 113 H 08/08/24 15:20 113 H 08/08/24 15:10 119 H 33 H 08/08/24 15:00 110 H 13 08/08/24 14:50 120 H 76 H 08/08/24 14:46 92 H 16 94 L 08/08/24 14:40 111 H 27 H 08/08/24 14:30 115 H 34 H 08/08/24 14:20 115 H 21 08/08/24 14:10 109 H 28 H 08/08/24 14:00 110 H 31 H 08/08/24 13:50 110 H 11 L 08/08/24 13:40 103 H 28 H 08/08/24 13:30 120 H 20 08/08/24 13:20 105 H 22 08/08/24 13:10 110 H 24 08/08/24 13:00 111 H 25 H 08/08/24 12:50 108 H 27 H 08/08/24 12:40 114 H 20 08/08/24 12:30 107 H 27 H 08/08/24 12:20 101 H 15 08/08/24 12:10 102 H 23 08/08/24 12:00 100 H 18 08/08/24 11:50 97 H 17 08/08/24 11:40 100 H 20 08/08/24 11:38 97.7 F 104 H 16 167/83 95 08/08/24 11:30 97 H 22 08/08/24 11:20 92 H 22 08/08/24 11:10 100 H 13 08/08/24 11:00 97 H 28 H 08/08/24 10:50 116 H 27 H 08/08/24 10:40 111 H 13 08/08/24 10:30 120 H 29 H 08/08/24 10:20 118 H 20 08/08/24 10:10 110 H 27 H 08/08/24 10:00 114 H 23 08/08/24 09:59 117 H 147/95 08/08/24 09:50 116 H 24 08/08/24 09:40 116 H 21 08/08/24 09:30 124 H 20 08/08/24 09:20 116 H 25 H 08/08/24 09:10 122 H 26 H 08/08/24 09:00 122 H 26 H 08/08/24 08:50 130 H 29 H 08/08/24 08:40 149 H 29 H 08/08/24 08:30 130 H 29 H 08/08/24 08:20 130 H 25 H 08/08/24 08:10 114 H 40 H 08/08/24 07:38 98.0 F 102 H 16 150/97 94 L 08/08/24 07:07 101 H 18 94 L 08/08/24 04:00 97.5 F 105 H 24 158/95 95 08/08/24 03:11 102 H 20 95 08/08/24 00:25 88 18 93 L 08/07/24 23:34 97.3 F 97 H 22 162/107 95 08/07/24 23:13 91 H 90 L 08/07/24 23:04 95 08/07/24 23:00 86 27 H 159/113 94 L 08/07/24 22:30 88 19 138/107 95 08/07/24 22:00 90 22 150/103 94 L 08/07/24 21:59 93 L 08/07/24 21:30 101 H 24 158/110 91 L 08/07/24 21:27 97.8 F 102 H 26 H 176/124 96 General:: alert and oriented x 4 Cardiovascular Exam: other (irregular and tachycardic) SpO2: 90 Results Vital Signs: Vital Signs - 24 hr Temp Pulse Resp BP BP Pulse Ox 08/08/24 18:01 98 H 20 140/90 90 L 08/08/24 18:00 110 H 25 H 150/101 94 L 08/08/24 17:02 97.6 F 114 H 23 131/95 95 08/08/24 16:16 113 H 24 152/99 94 L 08/08/24 16:10 116 H 08/08/24 16:00 119 H 17 08/08/24 15:50 126 H 19 08/08/24 15:40 119 H 08/08/24 15:30 113 H 08/08/24 15:20 113 H 08/08/24 15:10 119 H 33 H 08/08/24 15:00 110 H 13 08/08/24 14:50 120 H 76 H 08/08/24 14:46 92 H 16 94 L 08/08/24 14:40 111 H 27 H 08/08/24 14:30 115 H 34 H 08/08/24 14:20 115 H 21 08/08/24 14:10 109 H 28 H 08/08/24 14:00 110 H 31 H 08/08/24 13:50 110 H 11 L 08/08/24 13:40 103 H 28 H 08/08/24 13:30 120 H 20 08/08/24 13:20 105 H 22 08/08/24 13:10 110 H 24 08/08/24 13:00 111 H 25 H 08/08/24 12:50 108 H 27 H 08/08/24 12:40 114 H 20 08/08/24 12:30 107 H 27 H 08/08/24 12:20 101 H 15 08/08/24 12:10 102 H 23 08/08/24 12:00 100 H 18 08/08/24 11:50 97 H 17 08/08/24 11:40 100 H 20 08/08/24 11:38 97.7 F 104 H 16 167/83 95 08/08/24 11:30 97 H 22 08/08/24 11:20 92 H 22 08/08/24 11:10 100 H 13 08/08/24 11:00 97 H 28 H 08/08/24 10:50 116 H 27 H 08/08/24 10:40 111 H 13 08/08/24 10:30 120 H 29 H 08/08/24 10:20 118 H 20 08/08/24 10:10 110 H 27 H 08/08/24 10:00 114 H 23 08/08/24 09:59 117 H 147/95 08/08/24 09:50 116 H 24 08/08/24 09:40 116 H 21 08/08/24 09:30 124 H 20 08/08/24 09:20 116 H 25 H 08/08/24 09:10 122 H 26 H 08/08/24 09:00 122 H 26 H 08/08/24 08:50 130 H 29 H 08/08/24 08:40 149 H 29 H 08/08/24 08:30 130 H 29 H 08/08/24 08:20 130 H 25 H 08/08/24 08:10 114 H 40 H 08/08/24 07:38 98.0 F 102 H 16 150/97 94 L 08/08/24 07:07 101 H 18 94 L 08/08/24 04:00 97.5 F 105 H 24 158/95 95 08/08/24 03:11 102 H 20 95 08/08/24 00:25 88 18 93 L 08/07/24 23:34 97.3 F 97 H 22 162/107 95 08/07/24 23:13 91 H 90 L 08/07/24 23:04 95 08/07/24 23:00 86 27 H 159/113 94 L 08/07/24 22:30 88 19 138/107 95 08/07/24 22:00 90 22 150/103 94 L 08/07/24 21:59 93 L 08/07/24 21:30 101 H 24 158/110 91 L 08/07/24 21:27 97.8 F 102 H 26 H 176/124 96 Pain Assessment - Last Documented Pain Intensity 0 Intake and Output: Intake & Output 08/06/24 08/07/24 08/08/24 08/09/24 11:59 11:59 11:59 11:59 Intake Total 1030 720 Output Total 2600 Balance -1570 720 Weight 122.5 kg LAB: I have reviewed the Labs in [email or web address]. Radiology Exams: Radiology Procedures Category Date Time Status CHEST 1 VIEW (PORTABLE) Stat Exams 08/07/24 22:30 Completed ECHO W/2D AND DOPPLER [US] Routine Exams 08/08/24 02:05 Taken Multi-Disciplinary Progress Notes: Multi-Disciplinary Progress Notes 08/07/24 23:25 Respiratory Note by Mandy Ortiz ABG attempted but draw was suspect for venous gas. Notified Dr. Small and hand delivered results to him. ABG order cancelled and VBG ordered. Patient's SpO2 is 97% on room air and pt reports no SOB at this time. Initialized on 08/07/24 23:25 - END OF NOTE Assessment & Plan (1) CHF (congestive heart failure) Current Visit: Yes Status: Acute Qualifiers: Heart failure type: unspecified Heart failure chronicity: acute on chronic Qualified Code(s): I50.9 - Heart failure, unspecified Code(s): I50.9 - HEART FAILURE, UNSPECIFIED (2) PAF (paroxysmal atrial fibrillation) Current Visit: Yes Status: Acute Assessment & Plan: PAF and sob - heart rates in 130 despite bb. will start amio gtt for better rate and rhythm control. cw bb and anticoagulation. dc digoxin for now - echo shows normal lv function and chamber size Code(s): I48.0 - PAROXYSMAL ATRIAL FIBRILLATION - Encounter Encounter: "The entirety of this encounter was performed via Telemedicine using audio and visual "
[2024-08-08] MEDS: DUONEB 0.5-3 MG/3 ml Neb IH PRN (18:33)
[2024-08-08] MEDS ORDERED: DUONEB 0.5-3 MG/3 ml Neb IH SCH (19:00)
[2024-08-08] MEDS: ROCEPHIN 1 GM / 100 ML NaCl 1 GM/100 ML IVPB IV SCH (21:02)
[2024-08-08] MEDS: Zithromax 500 MG/ 250 ML NaCl Premix 500 MG/250 ML IVPB IV SCH (21:32)
[2024-08-09 05:08] LABS: Absolute Neutrophil Ct (ANC) 12.45 x10^3/uL (1.78-5.38); BASOPHIL % 0.2 % (0.2-1.2); Basophil (Absolute #) 0.03 x10^3/uL (0.01-0.08); Eosinophil % 0.1 % (0.8-7.0); Eosinophil (Absolute #) 0.01 x10^3/uL (0.04-0.54); Hemoglobin 15.3 g/dL (13.7-17.5); IMMATURE GRAN % 0.7 % (0.001-0.429); Lymphocyte (Absolute #) 1.09 x10^3/uL (1.32-3.57); Lymphocytes % 7.6 % (21.8-53.1); Mean Cell Volume 92.5 fL (79.0-92.2); Mean Corpuscular Hemoglobin 30.1 pg (25.7-32.2); Mean Corpuscular Hgb Concent. 32.6 g/dL (32.3-36.5); Mean Platelet Volume 10.9 fL (9.4-12.4); Monocyte (Absolute #) 0.75 x10^3/uL (0.30-0.82); Monocytes % 5.2 % (5.3-12.2); Neutrophil % 86.2 % (34.0-67.9); Platelet Count 192 x10^3/uL (163-337); Red Blood Count 5.08 x10^6/uL (4.63-6.08); Red Cell Distribution Width 14.2 % (11.6-14.4); White Blood Count 14.4 x10^3/uL (4.23-9.07)
[2024-08-09 05:26] LABS: ALBUMIN 3.7 g/dL (3.5-5.0); ANION GAP 4.5 MEQ/L (5-15); BILIRUBIN,TOTAL 0.3 mg/dL (0.2-1.3); Calcium 8.8 mg/dL (8.4-10.2); Creatinine 1 0.96 mg/dL (0.66-1.25); EST GLOMERULAR FILTRATION RATE 88.3 ML/MIN; Potassium 3.9 mmol/L (3.5-5.1); Total Protein 6.6 g/dL (6.3-8.2)
--- NOTE | 2024-08-09 05:41 | PCM.NOTE ---
Date and Time: 08/09/24 0536 Subjective Assessment: is a 64 year old male COPD, tobacco abuse, DM2 who presented to ED 08/08/24 with SOB, cough x 2 days. + clear sputum. + subjective fever Came to ED. Found to have pulmonary vascular congestion +/- pna on cxr. Recent admission for AFIB. Patient with persistent AFIB with HR in the 130s 08/08/23- cardiology consulted with recommendations for increased dose of metoprolol to 100mg bid and amiodarone drip x 24 hours. 08/09/24: Met with patient bedside. He is very anxious for discharge. Discussed the risks of discharging before medically stable. Patient agrees he needs to stay. HR is improving on amiodarone drip. BP has been elevated. Lisinopril/hydralazine added and now improved. Dyspnea and cough improved. Patient on RA. Possible discharge tomorrow if HR and BP controlled. Denies fever, cp, abdominal pain, SIMEON, dizziness, N/V/D. - Review of Systems Constitutional: No Symptoms Eyes: No Symptoms Ears, Nose, & Throat: No Symptoms Respiratory: Cough, Short Of Breath Cardiac: Edema Abdominal/Gastrointestinal: No Symptoms Genitourinary Symptoms: No Symptoms Musculoskeletal: No Symptoms Skin: No Symptoms Neurological: No Symptoms Psychological: No Symptoms Endocrine: No Symptoms Hematologic/Lymphatic: No Symptoms Immunological/Allergic: No Symptoms Objective Exam General Appearance: no apparent distress Neurologic Exam: alert, oriented x 3, cooperative, agitation Skin Exam: normal color Eye Exam: PERRL Ears, Nose, Throat Exam: normal ENT inspection Neck Exam: normal inspection Respiratory Exam: crackles/rales Cardiovascular Exam: irregular Gastrointestinal/Abdomen Exam: soft, normal bowel sounds Extremity Exam: swelling (BLE +1 pitting) Back Exam: normal inspection Male Genitalia Exam: deferred Rectal Exam: deferred Objective Data Vital Signs: Vital Signs - 24 hr Temp Pulse Resp BP BP Pulse Ox 08/09/24 05:06 93 H 24 165/112 94 L 08/09/24 04:05 98 F 85 24 154/104 96 08/09/24 03:58 92 H 08/09/24 03:00 89 24 144/111 95 08/09/24 02:01 79 17 93 L 08/09/24 01:00 85 20 160/110 94 L 08/09/24 00:01 96 H 08/09/24 00:00 97.3 F 100 H 13 153/83 95 08/08/24 23:00 91 H 19 135/85 94 L 08/08/24 22:00 100 H 25 H 123/87 93 L 08/08/24 21:01 111 H 26 H 150/94 94 L 08/08/24 20:01 104 H 18 161/102 93 L 08/08/24 19:32 108 H 08/08/24 19:00 97.3 F 97 H 24 165/109 93 L 08/08/24 18:33 107 H 20 95 08/08/24 18:17 90 L 08/08/24 18:01 98 H 20 140/90 90 L 08/08/24 18:00 110 H 25 H 150/101 94 L 08/08/24 17:02 97.6 F 114 H 23 131/95 95 08/08/24 16:16 113 H 24 152/99 94 L 08/08/24 16:10 116 H 08/08/24 16:00 119 H 17 08/08/24 15:50 126 H 19 08/08/24 15:40 119 H 08/08/24 15:30 113 H 08/08/24 15:20 113 H 08/08/24 15:10 119 H 33 H 08/08/24 15:00 110 H 13 08/08/24 14:50 120 H 76 H 08/08/24 14:46 92 H 16 94 L 08/08/24 14:40 111 H 27 H 08/08/24 14:30 115 H 34 H 08/08/24 14:20 115 H 21 08/08/24 14:10 109 H 28 H 08/08/24 14:00 110 H 31 H 08/08/24 13:50 110 H 11 L 08/08/24 13:40 103 H 28 H 08/08/24 13:30 120 H 20 08/08/24 13:20 105 H 22 08/08/24 13:10 110 H 24 08/08/24 13:00 111 H 25 H 08/08/24 12:50 108 H 27 H 08/08/24 12:40 114 H 20 08/08/24 12:30 107 H 27 H 08/08/24 12:20 101 H 15 08/08/24 12:10 102 H 23 08/08/24 12:00 100 H 18 08/08/24 11:50 97 H 17 08/08/24 11:40 100 H 20 08/08/24 11:38 97.7 F 104 H 16 167/83 95 08/08/24 11:30 97 H 22 08/08/24 11:20 92 H 22 08/08/24 11:10 100 H 13 08/08/24 11:00 97 H 28 H 08/08/24 10:50 116 H 27 H 08/08/24 10:40 111 H 13 08/08/24 10:30 120 H 29 H 08/08/24 10:20 118 H 20 08/08/24 10:10 110 H 27 H 08/08/24 10:00 114 H 23 08/08/24 09:59 117 H 147/95 08/08/24 09:50 116 H 24 08/08/24 09:40 116 H 21 08/08/24 09:30 124 H 20 08/08/24 09:20 116 H 25 H 08/08/24 09:10 122 H 26 H 08/08/24 09:00 122 H 26 H 08/08/24 08:50 130 H 29 H 08/08/24 08:40 149 H 29 H 08/08/24 08:30 130 H 29 H 08/08/24 08:20 130 H 25 H 08/08/24 08:10 114 H 40 H 08/08/24 07:38 98.0 F 102 H 16 150/97 94 L 08/08/24 07:07 101 H 18 94 L Pain Assessment - Last Documented Pain Intensity 0 Intake and Output: Intake & Output 08/06/24 08/07/24 08/08/24 08/09/24 11:59 11:59 11:59 11:59 Intake Total 1030 2072 Output Total 2600 2150 Balance -1570 -78 Weight 122.5 kg Lab Results: Lab Results-Last 24 Hours 08/08/24 08/08/24 08/08/24 Range/Units 04:40 04:40 04:40 WBC 11.2 H (4.23-9.07) x10^3/uL RBC 5.29 (4.63-6.08) x10^6/uL Hgb 16.0 (13.7-17.5) g/dL Hct 50.5 (40.1-51.0) % MCV 95.5 H (79.0-92.2) fL MCH 30.2 (25.7-32.2) pg MCHC 31.7 L (32.3-36.5) g/dL RDW 14.1 (11.6-14.4) % Plt Count 207 (163-337) x10^3/uL MPV 10.8 (9.4-12.4) fL Gran % 88.1 H (34.0-67.9) % Immature Gran % (Auto) 1.1 H (0.001-0.429) % Nucleat RBC Rel Count 0.0 (0.00-0.2) % Eos # (Auto) 0.10 (0.04-0.54) x10^3/uL Immature Gran # (Auto) 0.12 H (0.001-0.031) x10^3u/L Absolute Lymphs (auto) 0.92 L (1.32-3.57) x10^3/uL Absolute Monos (auto) 0.16 L (0.30-0.82) x10^3/uL Absolute Nucleated RBC 0.00 (0.00-0.012) x10^3u/L Lymphocytes % 8.2 L (21.8-53.1) % Monocytes % 1.4 L (5.3-12.2) % Eosinophils % 0.9 (0.8-7.0) % Basophils % 0.3 (0.2-1.2) % Absolute Granulocytes 9.83 H (1.78-5.38) x10^3/uL Basophils # 0.03 (0.01-0.08) x10^3/uL Sodium (135-145) mmol/L Potassium (3.5-5.1) mmol/L Chloride (98-107) mmol/L Carbon Dioxide (22-30) mmol/L Anion Gap (5-15) MEQ/L BUN (9-20) mg/dL Creatinine (0.66-1.25) mg/dL Estimated GFR ML/MIN Glucose (74-106) mg/dL POC Glucometer (74 to 106) mg/dL Calcium (8.4-10.2) mg/dL Magnesium 2.2 (1.6-2.3) mg/dL Total Bilirubin (0.2-1.3) mg/dL AST (17-59) U/L ALT (0-50) U/L Alkaline Phosphatase (38-126) U/L Troponin I (0.000-0.033) ng/mL Serum Total Protein (6.3-8.2) g/dL Albumin (3.5-5.0) g/dL Procalcitonin 0.068 (0.030-0.080) ng/mL 08/08/24 08/08/24 08/08/24 Range/Units 07:20 08:05 11:35 WBC (4.23-9.07) x10^3/uL RBC (4.63-6.08) x10^6/uL Hgb (13.7-17.5) g/dL Hct (40.1-51.0) % MCV (79.0-92.2) fL MCH (25.7-32.2) pg MCHC (32.3-36.5) g/dL RDW (11.6-14.4) % Plt Count (163-337) x10^3/uL MPV (9.4-12.4) fL Gran % (34.0-67.9) % Immature Gran % (Auto) (0.001-0.429) % Nucleat RBC Rel Count (0.00-0.2) % Eos # (Auto) (0.04-0.54) x10^3/uL Immature Gran # (Auto) (0.001-0.031) x10^3u/L Absolute Lymphs (auto) (1.32-3.57) x10^3/uL Absolute Monos (auto) (0.30-0.82) x10^3/uL Absolute Nucleated RBC (0.00-0.012) x10^3u/L Lymphocytes % (21.8-53.1) % Monocytes % (5.3-12.2) % Eosinophils % (0.8-7.0) % Basophils % (0.2-1.2) % Absolute Granulocytes (1.78-5.38) x10^3/uL Basophils # (0.01-0.08) x10^3/uL Sodium (135-145) mmol/L Potassium (3.5-5.1) mmol/L Chloride (98-107) mmol/L Carbon Dioxide (22-30) mmol/L Anion Gap (5-15) MEQ/L BUN (9-20) mg/dL Creatinine (0.66-1.25) mg/dL Estimated GFR ML/MIN Glucose (74-106) mg/dL POC Glucometer 187 H 239 H (74 to 106) mg/dL Calcium (8.4-10.2) mg/dL Magnesium (1.6-2.3) mg/dL Total Bilirubin (0.2-1.3) mg/dL AST (17-59) U/L ALT (0-50) U/L Alkaline Phosphatase (38-126) U/L Troponin I < 0.012 (0.000-0.033) ng/mL Serum Total Protein (6.3-8.2) g/dL Albumin (3.5-5.0) g/dL Procalcitonin (0.030-0.080) ng/mL 08/08/24 08/08/24 08/09/24 Range/Units 16:43 21:00 04:11 WBC 14.4 H (4.23-9.07) x10^3/uL RBC 5.08 (4.63-6.08) x10^6/uL Hgb 15.3 (13.7-17.5) g/dL Hct 47.0 (40.1-51.0) % MCV 92.5 H (79.0-92.2) fL MCH 30.1 (25.7-32.2) pg MCHC 32.6 (32.3-36.5) g/dL RDW 14.2 (11.6-14.4) % Plt Count 192 (163-337) x10^3/uL MPV 10.9 (9.4-12.4) fL Gran % 86.2 H (34.0-67.9) % Immature Gran % (Auto) 0.7 H (0.001-0.429) % Nucleat RBC Rel Count 0.0 (0.00-0.2) % Eos # (Auto) 0.01 L (0.04-0.54) x10^3/uL Immature Gran # (Auto) 0.10 H (0.001-0.031) x10^3u/L Absolute Lymphs (auto) 1.09 L (1.32-3.57) x10^3/uL Absolute Monos (auto) 0.75 (0.30-0.82) x10^3/uL Absolute Nucleated RBC 0.00 (0.00-0.012) x10^3u/L Lymphocytes % 7.6 L (21.8-53.1) % Monocytes % 5.2 L (5.3-12.2) % Eosinophils % 0.1 L (0.8-7.0) % Basophils % 0.2 (0.2-1.2) % Absolute Granulocytes 12.45 H (1.78-5.38) x10^3/uL Basophils # 0.03 (0.01-0.08) x10^3/uL Sodium (135-145) mmol/L Potassium (3.5-5.1) mmol/L Chloride (98-107) mmol/L Carbon Dioxide (22-30) mmol/L Anion Gap (5-15) MEQ/L BUN (9-20) mg/dL Creatinine (0.66-1.25) mg/dL Estimated GFR ML/MIN Glucose (74-106) mg/dL POC Glucometer 211 H 226 H (74 to 106) mg/dL Calcium (8.4-10.2) mg/dL Magnesium (1.6-2.3) mg/dL Total Bilirubin (0.2-1.3) mg/dL AST (17-59) U/L ALT (0-50) U/L Alkaline Phosphatase (38-126) U/L Troponin I (0.000-0.033) ng/mL Serum Total Protein (6.3-8.2) g/dL Albumin (3.5-5.0) g/dL Procalcitonin (0.030-0.080) ng/mL 08/09/24 Range/Units 04:11 WBC (4.23-9.07) x10^3/uL RBC (4.63-6.08) x10^6/uL Hgb (13.7-17.5) g/dL Hct (40.1-51.0) % MCV (79.0-92.2) fL MCH (25.7-32.2) pg MCHC (32.3-36.5) g/dL RDW (11.6-14.4) % Plt Count (163-337) x10^3/uL MPV (9.4-12.4) fL Gran % (34.0-67.9) % Immature Gran % (Auto) (0.001-0.429) % Nucleat RBC Rel Count (0.00-0.2) % Eos # (Auto) (0.04-0.54) x10^3/uL Immature Gran # (Auto) (0.001-0.031) x10^3u/L Absolute Lymphs (auto) (1.32-3.57) x10^3/uL Absolute Monos (auto) (0.30-0.82) x10^3/uL Absolute Nucleated RBC (0.00-0.012) x10^3u/L Lymphocytes % (21.8-53.1) % Monocytes % (5.3-12.2) % Eosinophils % (0.8-7.0) % Basophils % (0.2-1.2) % Absolute Granulocytes (1.78-5.38) x10^3/uL Basophils # (0.01-0.08) x10^3/uL Sodium 137 (135-145) mmol/L Potassium 3.9 (3.5-5.1) mmol/L Chloride 97 L (98-107) mmol/L Carbon Dioxide 39 H (22-30) mmol/L Anion Gap 4.5 L (5-15) MEQ/L BUN 26 H (9-20) mg/dL Creatinine 0.96 (0.66-1.25) mg/dL Estimated GFR 88.3 ML/MIN Glucose 157 H (74-106) mg/dL POC Glucometer (74 to 106) mg/dL Calcium 8.8 (8.4-10.2) mg/dL Magnesium (1.6-2.3) mg/dL Total Bilirubin 0.30 (0.2-1.3) mg/dL AST 32 (17-59) U/L ALT 69 H (0-50) U/L Alkaline Phosphatase 52 (38-126) U/L Troponin I (0.000-0.033) ng/mL Serum Total Protein 6.6 (6.3-8.2) g/dL Albumin 3.7 (3.5-5.0) g/dL Procalcitonin (0.030-0.080) ng/mL Radiology Exams: Radiology Procedures Category Date Time Status CHEST 1 VIEW (PORTABLE) Stat Exams 08/07/24 22:30 Completed ECHO W/2D AND DOPPLER [US] Routine Exams 08/08/24 02:05 Taken Assessment/Plan (1) Pneumonia Current Visit: Yes Status: Acute Assessment & Plan: -Respiratory panel negative -cxr reviewed with vascular congestion and RLL infiltrates -supplemental oxygen for goal spo2 > 91% - currently on RA -Ceftriaxone and azithromycin -solumedrol -pulmicort -Xoponex prn 08/09: -discontinue azithromycin - add doxycycline due to interaction with amiodarone -On RA with spo2 at goal at 92% -continue solu-medrol -change to bid dosing Code(s): J18.9 - PNEUMONIA, UNSPECIFIED ORGANISM (2) CHF exacerbation Current Visit: No Status: Acute Qualifiers: Heart failure type: unspecified Qualified Code(s): I50.9 - Heart failure, unspecified Assessment & Plan: -Lasix 40mg bid -Cardiology consult reviewed and discussed with recs to continue lasix and -echo pending -BNP at 1970 on admission Code(s): I50.9 - HEART FAILURE, UNSPECIFIED (3) COPD exacerbation Current Visit: Yes Status: Acute Assessment & Plan: -see pneumonia for plan Code(s): J44.1 - CHRONIC OBSTRUCTIVE PULMONARY DISEASE W (ACUTE) EXACERBATION (4) Tobacco abuse Current Visit: Yes Status: Acute Assessment & Plan: -advised strongly cessation Code(s): Z72.0 - TOBACCO USE (5) Atrial fibrillation with RVR Current Visit: No Status: Acute Assessment & Plan: -Case discussed with cardiology- agree with plan to continue increased dose of metoprolol to 100mg bid /dc digoxin - add amiodarone drip x 24 hours -continue Eliquis -patient states he is compliant with meds at home -bP elevated - added lisinopril and hydralazine - now improved Code(s): I48.91 - UNSPECIFIED ATRIAL FIBRILLATION (6) Diabetes mellitus Current Visit: No Status: Acute Qualifiers: Diabetes mellitus type: type 2 Diabetes mellitus assisted insulin use: without assisted use Assessment & Plan: -ADA diet -SSI -A1c reviewed at 5.59 on 07/28/24 Code(s): E11.9 - TYPE 2 DIABETES MELLITUS WITHOUT COMPLICATIONS (7) HTN (hypertension) Current Visit: No Status: Acute Qualifiers: Hypertension type: primary hypertension Qualified Code(s): I10 - Essential (primary) hypertension Code(s): I10 - ESSENTIAL (PRIMARY) HYPERTENSION
[2024-08-09] MEDS: Vibramycin 100 MG PO SCH (08:00)
[2024-08-09] MEDS: Zestril 20 MG PO SCH (11:20)
[2024-08-09] MEDS: Apresoline 25 MG TABLET PO SCH (13:05)
--- NOTE | 2024-08-09 15:27 | PCM.NOTE ---
Date and Time: 08/09/24 1525 Subjective Assessment: rates better controlled today but BP elevated Objective Data Vital Signs: Vital Signs - 24 hr Temp Pulse Resp BP Pulse Ox 08/09/24 15:11 93 H 26 H 144/103 95 08/09/24 14:00 97 H 19 151/96 92 L 08/09/24 13:00 96 H 26 H 123/89 92 L 08/09/24 12:01 98.0 F 99 H 21 155/113 93 L 08/09/24 12:00 103 H 08/09/24 11:01 89 25 H 156/110 95 08/09/24 10:01 85 20 160/112 93 L 08/09/24 09:02 85 22 159/113 94 L 08/09/24 09:01 87 23 156/115 96 08/09/24 08:01 89 27 H 162/120 95 08/09/24 07:37 89 08/09/24 07:23 89 18 98 08/09/24 07:12 85 27 H 172/117 93 L 08/09/24 06:03 99 H 19 160/98 95 08/09/24 05:06 93 H 24 165/112 94 L 08/09/24 04:05 98 F 85 24 154/104 96 08/09/24 03:58 92 H 08/09/24 03:00 89 24 144/111 95 08/09/24 02:01 79 17 93 L 08/09/24 01:00 85 20 160/110 94 L 08/09/24 00:01 96 H 08/09/24 00:00 97.3 F 100 H 13 153/83 95 08/08/24 23:00 91 H 19 135/85 94 L 08/08/24 22:00 100 H 25 H 123/87 93 L 08/08/24 21:01 111 H 26 H 150/94 94 L 08/08/24 20:01 104 H 18 161/102 93 L 08/08/24 19:32 108 H 08/08/24 19:00 97.3 F 97 H 24 165/109 93 L 08/08/24 18:33 107 H 20 95 08/08/24 18:17 90 L 08/08/24 18:01 98 H 20 140/90 90 L 08/08/24 18:00 110 H 25 H 150/101 94 L 08/08/24 17:02 97.6 F 114 H 23 131/95 95 08/08/24 16:16 113 H 24 152/99 94 L 08/08/24 16:10 116 H 08/08/24 16:00 119 H 17 08/08/24 15:50 126 H 19 08/08/24 15:40 119 H 08/08/24 15:30 113 H Pain Assessment - Last Documented Pain Intensity 0 Intake and Output: Intake & Output 08/07/24 08/08/24 08/09/24 08/10/24 11:59 11:59 11:59 11:59 Intake Total 1030 2432 240 Output Total 2600 9683 525 Balance -1564 -5906 -908 Weight 122.5 kg 116.4 kg LAB: I have reviewed the Labs in [employer]. Lab Results: Lab Results-Last 24 Hours 08/08/24 08/08/24 08/09/24 Range/Units 16:43 21:00 04:11 WBC 14.4 H (4.23-9.07) x10^3/uL RBC 5.08 (4.63-6.08) x10^6/uL Hgb 15.3 (13.7-17.5) g/dL Hct 47.0 (40.1-51.0) % MCV 92.5 H (79.0-92.2) fL MCH 30.1 (25.7-32.2) pg MCHC 32.6 (32.3-36.5) g/dL RDW 14.2 (11.6-14.4) % Plt Count 192 (163-337) x10^3/uL MPV 10.9 (9.4-12.4) fL Gran % 86.2 H (34.0-67.9) % Immature Gran % (Auto) 0.7 H (0.001-0.429) % Nucleat RBC Rel Count 0.0 (0.00-0.2) % Eos # (Auto) 0.01 L (0.04-0.54) x10^3/uL Immature Gran # (Auto) 0.10 H (0.001-0.031) x10^3u/L Absolute Lymphs (auto) 1.09 L (1.32-3.57) x10^3/uL Absolute Monos (auto) 0.75 (0.30-0.82) x10^3/uL Absolute Nucleated RBC 0.00 (0.00-0.012) x10^3u/L Lymphocytes % 7.6 L (21.8-53.1) % Monocytes % 5.2 L (5.3-12.2) % Eosinophils % 0.1 L (0.8-7.0) % Basophils % 0.2 (0.2-1.2) % Absolute Granulocytes 12.45 H (1.78-5.38) x10^3/uL Basophils # 0.03 (0.01-0.08) x10^3/uL Sodium (135-145) mmol/L Potassium (3.5-5.1) mmol/L Chloride (98-107) mmol/L Carbon Dioxide (22-30) mmol/L Anion Gap (5-15) MEQ/L BUN (9-20) mg/dL Creatinine (0.66-1.25) mg/dL Estimated GFR ML/MIN Glucose (74-106) mg/dL POC Glucometer 211 H 226 H (74 to 106) mg/dL Calcium (8.4-10.2) mg/dL Total Bilirubin (0.2-1.3) mg/dL AST (17-59) U/L ALT (0-50) U/L Alkaline Phosphatase (38-126) U/L Serum Total Protein (6.3-8.2) g/dL Albumin (3.5-5.0) g/dL 08/09/24 08/09/24 08/09/24 Range/Units 04:11 07:23 11:25 WBC (4.23-9.07) x10^3/uL RBC (4.63-6.08) x10^6/uL Hgb (13.7-17.5) g/dL Hct (40.1-51.0) % MCV (79.0-92.2) fL MCH (25.7-32.2) pg MCHC (32.3-36.5) g/dL RDW (11.6-14.4) % Plt Count (163-337) x10^3/uL MPV (9.4-12.4) fL Gran % (34.0-67.9) % Immature Gran % (Auto) (0.001-0.429) % Nucleat RBC Rel Count (0.00-0.2) % Eos # (Auto) (0.04-0.54) x10^3/uL Immature Gran # (Auto) (0.001-0.031) x10^3u/L Absolute Lymphs (auto) (1.32-3.57) x10^3/uL Absolute Monos (auto) (0.30-0.82) x10^3/uL Absolute Nucleated RBC (0.00-0.012) x10^3u/L Lymphocytes % (21.8-53.1) % Monocytes % (5.3-12.2) % Eosinophils % (0.8-7.0) % Basophils % (0.2-1.2) % Absolute Granulocytes (1.78-5.38) x10^3/uL Basophils # (0.01-0.08) x10^3/uL Sodium 137 (135-145) mmol/L Potassium 3.9 (3.5-5.1) mmol/L Chloride 97 L (98-107) mmol/L Carbon Dioxide 39 H (22-30) mmol/L Anion Gap 4.5 L (5-15) MEQ/L BUN 26 H (9-20) mg/dL Creatinine 0.96 (0.66-1.25) mg/dL Estimated GFR 88.3 ML/MIN Glucose 157 H (74-106) mg/dL POC Glucometer 188 H 146 H (74 to 106) mg/dL Calcium 8.8 (8.4-10.2) mg/dL Total Bilirubin 0.30 (0.2-1.3) mg/dL AST 32 (17-59) U/L ALT 69 H (0-50) U/L Alkaline Phosphatase 52 (38-126) U/L Serum Total Protein 6.6 (6.3-8.2) g/dL Albumin 3.7 (3.5-5.0) g/dL Radiology Exams: Radiology Procedures Category Date Time Status CHEST 1 VIEW (PORTABLE) Stat Exams 08/07/24 22:30 Completed ECHO W/2D AND DOPPLER [US] Routine Exams 08/08/24 02:05 Taken Multi-Disciplinary Progress Notes: Multi-Disciplinary Progress Notes 08/09/24 07:36 Pharmacy Note by Dwaine Craig Please be aware of possible drug interaction with Amiodarone and Zithromax. May prolong QT interval. Initialized on 08/09/24 07:36 - END OF NOTE Assessment & Plan (1) CHF (congestive heart failure) Current Visit: Yes Status: Acute Qualifiers: Heart failure type: unspecified Heart failure chronicity: acute on chronic Qualified Code(s): I50.9 - Heart failure, unspecified Code(s): I50.9 - HEART FAILURE, UNSPECIFIED (2) PAF (paroxysmal atrial fibrillation) Current Visit: Yes Status: Acute Assessment & Plan: rates better controlled on amio. DC drip and start 200mg BID. cw metroprolol and anticoagulation - agree with lisinopril for better BP control - cw treatment for COPD and pna Code(s): I48.0 - PAROXYSMAL ATRIAL FIBRILLATION - Encounter Encounter: "The entirety of this encounter was performed via Telemedicine using audio and visual "
[2024-08-09] MEDS: Cordarone 200 MG PO SCH (17:06)
[2024-08-09] MEDS: solu-MEDROL 40 MG, Sterile H2O 10 ml 1 ML IV SCH (21:23)
[2024-08-10 05:00] LABS: Absolute Neutrophil Ct (ANC) 13.08 x10^3/uL (1.78-5.38); BASOPHIL % 0.1 % (0.2-1.2); Basophil (Absolute #) 0.02 x10^3/uL (0.01-0.08); Eosinophil % 0.1 % (0.8-7.0); Eosinophil (Absolute #) 0.02 x10^3/uL (0.04-0.54); Hemoglobin 16.5 g/dL (13.7-17.5); IMMATURE GRAN % 0.7 % (0.001-0.429); Lymphocyte (Absolute #) 1.11 x10^3/uL (1.32-3.57); Lymphocytes % 7.4 % (21.8-53.1); Mean Cell Volume 92.9 fL (79.0-92.2); Mean Corpuscular Hemoglobin 30.7 pg (25.7-32.2); Mean Platelet Volume 10.5 fL (9.4-12.4); Monocyte (Absolute #) 0.61 x10^3/uL (0.30-0.82); Monocytes % 4.1 % (5.3-12.2); Neutrophil % 87.6 % (34.0-67.9); Platelet Count 188 x10^3/uL (163-337); Red Blood Count 5.38 x10^6/uL (4.63-6.08); Red Cell Distribution Width 14.5 % (11.6-14.4); White Blood Count 14.9 x10^3/uL (4.23-9.07)
[2024-08-10 05:13] LABS: ANION GAP 5.1 MEQ/L (5-15); BILIRUBIN,TOTAL 0.5 mg/dL (0.2-1.3); Calcium 8.9 mg/dL (8.4-10.2); Creatinine 1 1.1 mg/dL (0.66-1.25); Potassium 4.3 mmol/L (3.5-5.1)
--- NOTE | 2024-08-10 06:02 | PCM.NOTE ---
Date and Time: 08/10/24 06 Subjective Assessment: is a 64 year old male COPD, tobacco abuse, DM2 who presented to ED 08/08/24 with SOB, cough x 2 days. + clear sputum. + subjective fever Came to ED. Found to have pulmonary vascular congestion +/- pna on cxr. Recent admission for AFIB. Patient with persistent AFIB with HR in the 130s 08/08/23- cardiology consulted with recommendations for increased dose of metoprolol to 100mg bid and amiodarone drip x 24 hours. 08/09/24: Met with patient bedside. He is very anxious for discharge. Discussed the risks of discharging before medically stable. Patient agrees he needs to stay. HR is improving on amiodarone drip. BP has been elevated. Lisinopril/hydralazine added and now improved. Dyspnea and cough improved. Patient on RA. Possible discharge tomorrow if HR and BP controlled. Denies fever, cp, abdominal pain, SIMEON, dizziness, N/V/D. 08/10/24: BP remains elevated this morning. Patient with no complaints. Will add amlodipine and increase hydralazine dosing. If BP improved, patient can possibly discharge as he has requested and if cleared by cardiology. - Review of Systems Constitutional: No Symptoms Eyes: No Symptoms All Other Systems: Reviewed and Negative Objective Exam General Appearance: no apparent distress Neurologic Exam: alert, oriented x 3, cooperative Skin Exam: normal color Eye Exam: PERRL Ears, Nose, Throat Exam: normal ENT inspection Neck Exam: normal inspection Respiratory Exam: crackles/rales Cardiovascular Exam: irregular Gastrointestinal/Abdomen Exam: soft, normal bowel sounds Extremity Exam: normal inspection Back Exam: normal inspection Male Genitalia Exam: deferred Rectal Exam: deferred Objective Data Vital Signs: Vital Signs - 24 hr Temp Pulse Resp BP BP Pulse Ox 08/10/24 03:30 97.5 F 83 19 148/108 95 08/10/24 00:01 90 08/10/24 00:00 97.1 F 90 21 150/100 93 L 08/09/24 23:01 95 H 25 H 161/118 94 L 08/09/24 22:02 96 H 25 H 153/109 94 L 08/09/24 22:01 100 H 25 H 93 L 08/09/24 21:23 103 H 22 155/107 89 L 08/09/24 21:00 102 H 25 H 147/118 92 L 08/09/24 20:00 100 H 30 H 150/100 93 L 08/09/24 19:29 103 H 08/09/24 19:10 96 H 18 94 L 08/09/24 19:00 97.8 F 103 H 28 H 142/98 94 L 08/09/24 18:00 106 H 25 H 148/95 94 L 08/09/24 17:00 106 H 27 H 158/118 96 08/09/24 16:00 97.8 F 88 24 154/108 94 L 08/09/24 15:11 93 H 26 H 144/103 95 08/09/24 14:00 97 H 19 151/96 92 L 08/09/24 13:00 96 H 26 H 123/89 92 L 08/09/24 12:01 98.0 F 99 H 21 155/113 93 L 08/09/24 12:00 103 H 08/09/24 11:01 89 25 H 156/110 95 08/09/24 10:01 85 20 160/112 93 L 08/09/24 09:02 85 22 159/113 94 L 08/09/24 09:01 87 23 156/115 96 08/09/24 08:01 89 27 H 162/120 95 08/09/24 07:37 89 08/09/24 07:23 89 18 98 08/09/24 07:12 85 27 H 172/117 93 L 08/09/24 06:03 99 H 19 160/98 95 Pain Assessment - Last Documented Pain Intensity 0 Intake and Output: Intake & Output 08/07/24 08/08/24 08/09/24 08/10/24 11:59 11:59 11:59 11:59 Intake Total 1030 2432 789 Output Total 9174 0032 8395 Balance -6940 -6523 -686 Weight 122.5 kg 116.4 kg Lab Results: Lab Results-Last 24 Hours 08/09/24 08/09/24 08/09/24 Range/Units 07:23 11:25 16:14 WBC (4.23-9.07) x10^3/uL RBC (4.63-6.08) x10^6/uL Hgb (13.7-17.5) g/dL Hct (40.1-51.0) % MCV (79.0-92.2) fL MCH (25.7-32.2) pg MCHC (32.3-36.5) g/dL RDW (11.6-14.4) % Plt Count (163-337) x10^3/uL MPV (9.4-12.4) fL Gran % (34.0-67.9) % Immature Gran % (Auto) (0.001-0.429) % Nucleat RBC Rel Count (0.00-0.2) % Eos # (Auto) (0.04-0.54) x10^3/uL Immature Gran # (Auto) (0.001-0.031) x10^3u/L Absolute Lymphs (auto) (1.32-3.57) x10^3/uL Absolute Monos (auto) (0.30-0.82) x10^3/uL Absolute Nucleated RBC (0.00-0.012) x10^3u/L Lymphocytes % (21.8-53.1) % Monocytes % (5.3-12.2) % Eosinophils % (0.8-7.0) % Basophils % (0.2-1.2) % Absolute Granulocytes (1.78-5.38) x10^3/uL Basophils # (0.01-0.08) x10^3/uL Sodium (135-145) mmol/L Potassium (3.5-5.1) mmol/L Chloride (98-107) mmol/L Carbon Dioxide (22-30) mmol/L Anion Gap (5-15) MEQ/L BUN (9-20) mg/dL Creatinine (0.66-1.25) mg/dL Estimated GFR ML/MIN Glucose (74-106) mg/dL POC Glucometer 188 H 146 H 152 H (74 to 106) mg/dL Calcium (8.4-10.2) mg/dL Total Bilirubin (0.2-1.3) mg/dL AST (17-59) U/L ALT (0-50) U/L Alkaline Phosphatase (38-126) U/L Serum Total Protein (6.3-8.2) g/dL Albumin (3.5-5.0) g/dL 08/09/24 08/10/24 08/10/24 Range/Units 21:19 05:00 05:00 WBC 14.9 H (4.23-9.07) x10^3/uL RBC 5.38 (4.63-6.08) x10^6/uL Hgb 16.5 (13.7-17.5) g/dL Hct 50.0 (40.1-51.0) % MCV 92.9 H (79.0-92.2) fL MCH 30.7 (25.7-32.2) pg MCHC 33.0 (32.3-36.5) g/dL RDW 14.5 H (11.6-14.4) % Plt Count 188 (163-337) x10^3/uL MPV 10.5 (9.4-12.4) fL Gran % 87.6 H (34.0-67.9) % Immature Gran % (Auto) 0.7 H (0.001-0.429) % Nucleat RBC Rel Count 0.0 (0.00-0.2) % Eos # (Auto) 0.02 L (0.04-0.54) x10^3/uL Immature Gran # (Auto) 0.10 H (0.001-0.031) x10^3u/L Absolute Lymphs (auto) 1.11 L (1.32-3.57) x10^3/uL Absolute Monos (auto) 0.61 (0.30-0.82) x10^3/uL Absolute Nucleated RBC 0.00 (0.00-0.012) x10^3u/L Lymphocytes % 7.4 L (21.8-53.1) % Monocytes % 4.1 L (5.3-12.2) % Eosinophils % 0.1 L (0.8-7.0) % Basophils % 0.1 L (0.2-1.2) % Absolute Granulocytes 13.08 H (1.78-5.38) x10^3/uL Basophils # 0.02 (0.01-0.08) x10^3/uL Sodium 137 (135-145) mmol/L Potassium 4.3 (3.5-5.1) mmol/L Chloride 96 L (98-107) mmol/L Carbon Dioxide 39 H (22-30) mmol/L Anion Gap 5.1 (5-15) MEQ/L BUN 36 H (9-20) mg/dL Creatinine 1.10 (0.66-1.25) mg/dL Estimated GFR 75.0 ML/MIN Glucose 142 H (74-106) mg/dL POC Glucometer 155 H (74 to 106) mg/dL Calcium 8.9 (8.4-10.2) mg/dL Total Bilirubin 0.50 (0.2-1.3) mg/dL AST 28 (17-59) U/L ALT 56 H (0-50) U/L Alkaline Phosphatase 49 (38-126) U/L Serum Total Protein 7.0 (6.3-8.2) g/dL Albumin 4.0 (3.5-5.0) g/dL Multi-Disciplinary Progress Notes: Multi-Disciplinary Progress Notes 08/09/24 07:36 Pharmacy Note by Dwaine Craig Please be aware of possible drug interaction with Amiodarone and Zithromax. May prolong QT interval. Initialized on 08/09/24 07:36 - END OF NOTE Assessment/Plan (1) Pneumonia Current Visit: Yes Status: Acute Assessment & Plan: -Respiratory panel negative -cxr reviewed with vascular congestion and RLL infiltrates -supplemental oxygen for goal spo2 > 91% - currently on RA -Ceftriaxone and azithromycin -solumedrol -pulmicort -Xoponex prn 08/09: -discontinue azithromycin - add doxycycline due to interaction with amiodarone -On RA with spo2 at goal at 92% -continue solu-medrol -change to bid dosing 08/10: -Change to solumedrol to prednisone Code(s): J18.9 - PNEUMONIA, UNSPECIFIED ORGANISM (2) CHF exacerbation Current Visit: No Status: Acute Qualifiers: Heart failure type: unspecified Qualified Code(s): I50.9 - Heart failure, unspecified Assessment & Plan: -Lasix 40mg bid -Cardiology consult reviewed and discussed with recs to continue lasix and -echo pending -BNP at 1970 on admission Code(s): I50.9 - HEART FAILURE, UNSPECIFIED (3) COPD exacerbation Current Visit: Yes Status: Acute Assessment & Plan: -see pneumonia for plan Code(s): J44.1 - CHRONIC OBSTRUCTIVE PULMONARY DISEASE W (ACUTE) EXACERBATION (4) Tobacco abuse Current Visit: Yes Status: Acute Assessment & Plan: -advised strongly cessation -will discharge on nicotine patches as pt states this is helping Code(s): Z72.0 - TOBACCO USE (5) Atrial fibrillation with RVR Current Visit: No Status: Acute Assessment & Plan: -Case discussed with cardiology- agree with plan to continue increased dose of metoprolol to 100mg bid /dc digoxin - add amiodarone drip x 24 hours -continue Eliquis -patient states he is compliant with meds at home -bP elevated - added lisinopril and hydralazine - now improved Code(s): I48.91 - UNSPECIFIED ATRIAL FIBRILLATION (6) Diabetes mellitus Current Visit: No Status: Acute Qualifiers: Diabetes mellitus type: type 2 Diabetes mellitus manager intermediate insulin use: without manager intermediate use Assessment & Plan: -ADA diet -SSI -A1c reviewed at 5.59 on 07/28/24 Code(s): E11.9 - TYPE 2 DIABETES MELLITUS WITHOUT COMPLICATIONS (7) HTN (hypertension) Current Visit: No Status: Acute Qualifiers: Hypertension type: primary hypertension Qualified Code(s): I10 - Essential (primary) hypertension -BP elevated - will increase hydralazine to 100mg tid and add amlodipine 5mg daily Code(s): I10 - ESSENTIAL (PRIMARY) HYPERTENSION Code(s): J18.9 - PNEUMONIA, UNSPECIFIED ORGANISM (2) CHF exacerbation Current Visit: No Status: Acute Qualifiers: Heart failure type: unspecified Qualified Code(s): I50.9 - Heart failure, unspecified Code(s): I50.9 - HEART FAILURE, UNSPECIFIED (3) COPD exacerbation Current Visit: Yes Status: Acute Code(s): J44.1 - CHRONIC OBSTRUCTIVE PULMONARY DISEASE W (ACUTE) EXACERBATION (4) Tobacco abuse Current Visit: Yes Status: Acute Code(s): Z72.0 - TOBACCO USE (5) Atrial fibrillation with RVR Current Visit: No Status: Acute Code(s): I48.91 - UNSPECIFIED ATRIAL FIBRILLATION (6) Diabetes mellitus Current Visit: No Status: Acute Qualifiers: Diabetes mellitus type: type 2 Diabetes mellitus fdc insulin use: without fdc use Code(s): E11.9 - TYPE 2 DIABETES MELLITUS WITHOUT COMPLICATIONS (7) HTN (hypertension) Current Visit: No Status: Acute Qualifiers: Hypertension type: primary hypertension Qualified Code(s): I10 - Essential (primary) hypertension Code(s): I10 - ESSENTIAL (PRIMARY) HYPERTENSION
[2024-08-10] MEDS: DELTASONE 20 MG PO SCH (09:23)
[2024-08-10] MEDS: NORVASC 5 MG PO SCH (09:48)
[2024-08-10] MEDS ORDERED: Apresoline 25 MG TABLET PO PRN (14:30)
[2024-08-10] MEDS: Zestril 20 MG PO ONE (14:33)
[2024-08-10] MEDS ORDERED: Apresoline 25 MG TABLET PO SCH (15:00)
[2024-08-10 15:42] VITALS: BP 147/98; PULSE 98; RESP 23; TEMP 98; O2SAT 94
--- NOTE | 2024-08-10 16:51 | PCM.DS ---
Discharge Summary Date of Admission: 08/07/24 23:05 Date of Discharge: 08/10/24 Admitting Physician: DORA VALLADARES MD Consults: Consults on Case 08/08/24 13:05 Consult Cardiology ROUTINE Primary Care Provider: NO FAMILY DOCTOR Allergies Allergies tramadol Adverse Reaction (Mild, Verified 08/07/24 23:27) nausea/vomiting Hospital Summary - Hospital Course Hospital Course: is a 64 year old male COPD, tobacco abuse, DM2 who presented to ED 08/08/24 with SOB, cough x 2 days. + clear sputum. + subjective fever Came to ED. Found to have pulmonary vascular congestion +/- pna on cxr. Recent admission for AFIB. Patient with persistent AFIB with HR in the 130s 08/08/23- cardiology consulted with initial recommendations for increased dose of metoprolol to 100mg bid and amiodarone drip x 24 hours. HR is now controlled. Cardiology started amiodarone 200mg BID, he is to continue metoprolol 100mg bid, lasix 40mg daily, eliquis 5mg bid. For blood pressure control patient started amlodipine 5mg daily and lisinopril 40mg daily per cardiology recommendations. He will follow up with Dr. Kennedy cardiology on Wednesday. He is to keep a blood pressure log until he sees cardiology. Dyspnea and cough improved. Patient is on RA. He will continue cefuroxime and doxycycline for pneumonia as well as prednisone. Patient advised about smoking cessation - he is ready to quit. Will send out on nicotine patches. Advised compliance with medications and follow up appts. Discharge Note New Medications: Lisinopril, prednisone, cefuroxime, doxycycline, nicotine patches, amlodipine, amiodarone, metoprolol, lasix Follow Up: pcp/cardiology Latest Assessment & Plan (1) Pneumonia Current Visit: Yes Status: Acute Assessment & Plan: -Respiratory panel negative -cxr reviewed with vascular congestion and RLL infiltrates -supplemental oxygen for goal spo2 > 91% - currently on RA -Ceftriaxone and azithromycin -solumedrol -pulmicort -Xoponex prn 08/09: -discontinue azithromycin - add doxycycline due to interaction with amiodarone -On RA with spo2 at goal at 92% -continue solu-medrol -change to bid dosing 08/10: -Change to solumedrol to prednisone Code(s): J18.9 - PNEUMONIA, UNSPECIFIED ORGANISM (2) CHF exacerbation Current Visit: No Status: Acute Qualifiers: Heart failure type: unspecified Qualified Code(s): I50.9 - Heart failure, unspecified Assessment & Plan: -Lasix 40mg bid -Cardiology consult reviewed and discussed with recs to continue lasix and -echo pending -BNP at 1970 on admission Code(s): I50.9 - HEART FAILURE, UNSPECIFIED (3) COPD exacerbation Current Visit: Yes Status: Acute Assessment & Plan: -see pneumonia for plan Code(s): J44.1 - CHRONIC OBSTRUCTIVE PULMONARY DISEASE W (ACUTE) EXACERBATION (4) Tobacco abuse Current Visit: Yes Status: Acute Assessment & Plan: -advised strongly cessation -will discharge on nicotine patches as pt states this is helping Code(s): Z72.0 - TOBACCO USE (5) Atrial fibrillation with RVR Current Visit: No Status: Acute Assessment & Plan: -Case discussed with cardiology- agree with plan to continue increased dose of metoprolol to 100mg bid /dc digoxin - add amiodarone drip x 24 hours -continue Eliquis -patient states he is compliant with meds at home -bP elevated - added lisinopril and hydralazine - now improved Code(s): I48.91 - UNSPECIFIED ATRIAL FIBRILLATION (6) Diabetes mellitus Current Visit: No Status: Acute Qualifiers: Diabetes mellitus type: type 2 Diabetes mellitus termite helper insulin use: without nursing home use Assessment & Plan: -ADA diet -SSI -A1c reviewed at 5.59 on 07/28/24 Code(s): E11.9 - TYPE 2 DIABETES MELLITUS WITHOUT COMPLICATIONS (7) HTN (hypertension) Current Visit: No Status: Acute Qualifiers: Hypertension type: primary hypertension Qualified Code(s): I10 - Essential (primary) hypertension -per cardiology lisinopril at 40mg- dc hydralazine, keep amlodipine at 5mg - keep bp log- follow up with cards Wednesday Code(s): I10 - ESSENTIAL (PRIMARY) HYPERTENSION Code(s): J18.9 - PNEUMONIA, UNSPECIFIED ORGANISM (2) CHF exacerbation Current Visit: No Status: Acute Qualifiers: Heart failure type: unspecified Qualified Code(s): I50.9 - Heart failure, unspecified Code(s): I50.9 - HEART FAILURE, UNSPECIFIED I spent 35 minutes [id number] with the patient on the day of discharge performing discharge exam, discussing hospital stay and discharge instructions with patient and caregivers, preparation of discharge records, prescriptions & referral forms and addressing any questions/concerns the patient had as documented above. - Vitals & Intake/Output Vital Signs: Vital Signs Temperature 98.0 F 08/10/24 15:41 Pulse Rate 98 H 08/10/24 16:00 Respiratory Rate 23 08/10/24 15:41 Blood Pressure 147/98 08/10/24 15:41 O2 Sat by Pulse Oximetry 94 L 08/10/24 15:41 Intake & Output: Intake & Output 08/08/24 08/09/24 08/10/24 08/11/24 11:59 11:59 11:59 11:59 Intake Total 1030 2432 1489 120 Output Total 2600 3475 2300 750 Balance -1570 -1043 -811 -630 Weight 122.5 kg 116.4 kg 116.4 kg - Lab Result Diagrams: 08/10/24 05:00 08/10/24 05:00 Lab Results-Last 24 Hrs: Lab Results-Last 24 Hours 08/09/24 08/10/24 08/10/24 Range/Units 21:19 05:00 05:00 WBC 14.9 H (4.23-9.07) x10^3/uL RBC 5.38 (4.63-6.08) x10^6/uL Hgb 16.5 (13.7-17.5) g/dL Hct 50.0 (40.1-51.0) % MCV 92.9 H (79.0-92.2) fL MCH 30.7 (25.7-32.2) pg MCHC 33.0 (32.3-36.5) g/dL RDW 14.5 H (11.6-14.4) % Plt Count 188 (163-337) x10^3/uL MPV 10.5 (9.4-12.4) fL Gran % 87.6 H (34.0-67.9) % Immature Gran % (Auto) 0.7 H (0.001-0.429) % Nucleat RBC Rel Count 0.0 (0.00-0.2) % Eos # (Auto) 0.02 L (0.04-0.54) x10^3/uL Immature Gran # (Auto) 0.10 H (0.001-0.031) x10^3u/L Absolute Lymphs (auto) 1.11 L (1.32-3.57) x10^3/uL Absolute Monos (auto) 0.61 (0.30-0.82) x10^3/uL Absolute Nucleated RBC 0.00 (0.00-0.012) x10^3u/L Lymphocytes % 7.4 L (21.8-53.1) % Monocytes % 4.1 L (5.3-12.2) % Eosinophils % 0.1 L (0.8-7.0) % Basophils % 0.1 L (0.2-1.2) % Absolute Granulocytes 13.08 H (1.78-5.38) x10^3/uL Basophils # 0.02 (0.01-0.08) x10^3/uL Sodium 137 (135-145) mmol/L Potassium 4.3 (3.5-5.1) mmol/L Chloride 96 L (98-107) mmol/L Carbon Dioxide 39 H (22-30) mmol/L Anion Gap 5.1 (5-15) MEQ/L BUN 36 H (9-20) mg/dL Creatinine 1.10 (0.66-1.25) mg/dL Estimated GFR 75.0 ML/MIN Glucose 142 H (74-106) mg/dL POC Glucometer 155 H (74 to 106) mg/dL Calcium 8.9 (8.4-10.2) mg/dL Total Bilirubin 0.50 (0.2-1.3) mg/dL AST 28 (17-59) U/L ALT 56 H (0-50) U/L Alkaline Phosphatase 49 (38-126) U/L Serum Total Protein 7.0 (6.3-8.2) g/dL Albumin 4.0 (3.5-5.0) g/dL 08/10/24 08/10/24 08/10/24 Range/Units 07:22 11:15 16:06 WBC (4.23-9.07) x10^3/uL RBC (4.63-6.08) x10^6/uL Hgb (13.7-17.5) g/dL Hct (40.1-51.0) % MCV (79.0-92.2) fL MCH (25.7-32.2) pg MCHC (32.3-36.5) g/dL RDW (11.6-14.4) % Plt Count (163-337) x10^3/uL MPV (9.4-12.4) fL Gran % (34.0-67.9) % Immature Gran % (Auto) (0.001-0.429) % Nucleat RBC Rel Count (0.00-0.2) % Eos # (Auto) (0.04-0.54) x10^3/uL Immature Gran # (Auto) (0.001-0.031) x10^3u/L Absolute Lymphs (auto) (1.32-3.57) x10^3/uL Absolute Monos (auto) (0.30-0.82) x10^3/uL Absolute Nucleated RBC (0.00-0.012) x10^3u/L Lymphocytes % (21.8-53.1) % Monocytes % (5.3-12.2) % Eosinophils % (0.8-7.0) % Basophils % (0.2-1.2) % Absolute Granulocytes (1.78-5.38) x10^3/uL Basophils # (0.01-0.08) x10^3/uL Sodium (135-145) mmol/L Potassium (3.5-5.1) mmol/L Chloride (98-107) mmol/L Carbon Dioxide (22-30) mmol/L Anion Gap (5-15) MEQ/L BUN (9-20) mg/dL Creatinine (0.66-1.25) mg/dL Estimated GFR ML/MIN Glucose (74-106) mg/dL POC Glucometer 123 H 133 H 196 H (74 to 106) mg/dL Calcium (8.4-10.2) mg/dL Total Bilirubin (0.2-1.3) mg/dL AST (17-59) U/L ALT (0-50) U/L Alkaline Phosphatase (38-126) U/L Serum Total Protein (6.3-8.2) g/dL Albumin (3.5-5.0) g/dL Micro Results-Entire Visit: Microbiology 08/07/24 21:35 Blood Culture - Preliminary Blood 08/07/24 21:45 Blood Culture - Preliminary Blood Accuchecks Date 08/10/24 Date 08/10/24 Date 08/10/24 - Procedures and Test Procedures and Tests throughout Hospitalization: Therapy Orders & Screens 08/07/24 21:30 Respiratory Therapy Assessment DAILY Comment: 08/07/24 23:48 RT Screen per Nursing Assess ONCE Comment: Protocol Order Physician Instructions: Greater than 3 points order RT Admission Screen Reason For Exam: Triggered on Admission Diagnosis: shortness of breath, COPD exacerbation, leukocytosis Diagnosis: shortness of breath, COPD exacerbation, leukocytosis Pneumonia: Yes Home O2: No Asthma: No CHF: Yes Home CPAP/BIPAP: No Home Nebs/MDI: No Total Points: 6 Smoking Cessation Education ONCE Comment: Diagnosis: shortness of breath, COPD exacerbation, leukocytosis Smoking Status: Current every day smoker How long have you smoked: 50 years Have you smoked in the past 12 months: Yes Approximately how many cigarettes per day: 1.5 Do you dip or chew tobacco: No 08/08/24 01:03 Oxygen Nasal Cannula 2 lpm Comment: Diagnosis: shortness of breath, COPD exacerbation, leukocytosis 08/08/24 01:09 Respiratory Therapy Consult ROUTINE Comment: Reason For Exam: Diagnosis: shortness of breath, COPD exacerbation, leukocytosis 08/08/24 01:12 EKG ROUTINE Comment: Diagnosis: shortness of breath, COPD exacerbation, leukocytosis Discharge Exam General Appearance: no apparent distress Neurologic Exam: alert, oriented x 3, cooperative Eye Exam: PERRL Ears, Nose, Throat Exam: normal ENT inspection Neck Exam: normal inspection Respiratory Exam: crackles/rales Cardiovascular Exam: irregular Gastrointestinal/Abdomen Exam: soft, normal bowel sounds Male Genitalia Exam: deferred Rectal Exam: deferred Back Exam: normal inspection Extremity Exam: normal inspection Skin Exam: normal color Final Diagnosis/Problem List - Final Discharge Diagnosis/Problem (1) Pneumonia Current Visit: Yes Status: Acute Code(s): J18.9 - PNEUMONIA, UNSPECIFIED ORGANISM (2) CHF exacerbation Current Visit: No Status: Acute Code(s): I50.9 - HEART FAILURE, UNSPECIFIED (3) COPD exacerbation Current Visit: Yes Status: Acute Code(s): J44.1 - CHRONIC OBSTRUCTIVE PULMONARY DISEASE W (ACUTE) EXACERBATION (4) Tobacco abuse Current Visit: Yes Status: Chronic Code(s): Z72.0 - TOBACCO USE (5) Atrial fibrillation with RVR Current Visit: No Status: Acute Code(s): I48.91 - UNSPECIFIED ATRIAL FIBRILLATION (6) Diabetes mellitus Current Visit: No Status: Chronic Code(s): E11.9 - TYPE 2 DIABETES MELLITUS WITHOUT COMPLICATIONS (7) HTN (hypertension) Current Visit: No Status: Chronic Code(s): I10 - ESSENTIAL (PRIMARY) HY PERTENSION - Discharge Discharge Date: 08/10/24 Disposition: Home, Self-Care Condition: Stable Prescriptions: New cefuroxime axetiL [Cefuroxime] 500 mg PO BID 7 Days #14 tablet Amiodarone HCl 200 mg [Cordarone 200 MG] 200 mg PO BIDWM 30 Days #60 tablet Prednisone 20 mg [Deltasone 20 mg] 20 mg PO BID 5 Days #10 tablet Metoprolol Tartrate 100 mg PO BID 30 Days #60 tablet Nicotine 21 mg [Nicoderm CQ 21 MG] 21 mg TOP Q24H 42 Days #42 patch Amlodipine Besylate 5 mg [Norvasc 5 mg] 5 mg PO QAM 30 Days #30 tablet Doxycycline Hyclate 100 mg [Vibramycin 100 MG] 100 mg PO BIDWMEALS 10 Days #20 tablet Lisinopril 20 mg [Zestril 20 MG] 40 mg PO DAILY 30 Days #30 tablet Continue Apixaban [Eliquis] 5 mg PO BID 30 Days #60 tablet Furosemide 40 mg [Lasix 40 MG] 40 mg PO DAILY 30 Days #30 tablet PANTOPRAZOLE 40 mg Tablet [Protonix 40MG Tablet] 40 mg PO QAM 14 Days #14 tab Discontinued Metoprolol Tartrate 50 mg [Lopressor 50 MG] 50 mg PO BID 30 Days #60 tablet Instructions: Atrial fibrillation - Discharge instructions, COPD exacerbation - Discharge instructions Follow up with: RIAZ VILLA NP [NON-STAFF PHY W/O PRIVILEGES] - 08/17/24 9:00 am CHARIYT WORKMAN MD [CONSULTING PHYSICIAN] - 08/14/24 9:00 am Forms: Discharge Instructions, Work/School Release Form
[2024-08-11] MEDS ORDERED: Zestril 20 MG PO SCH (10:00)
== END 2024-08-10 17:22 | disposition home or self-care (01) ==
LOC: ED 21:24 → MED SURG 23:05 → ICU 08-08 16:00
PROVIDERS: ADMIT Internal Medicine; ATTEND Internal Medicine
DX: J18.9 Pneumonia, unspecified organism (principal); I11.0 Hypertensive heart disease with heart failure; I50.9 Heart failure, unspecified; J44.1 Chronic obstructive pulmonary disease with (acute) exacerbation; Z72.0 Tobacco use; I48.20 Chronic atrial fibrillation, unspecified; E11.9 Type 2 diabetes mellitus without complications; D72.829 Elevated white blood cell count, unspecified; E78.5 Hyperlipidemia, unspecified; Z79.899 Other long term (current) drug therapy; Z79.01 Long term (current) use of anticoagulants
CPT/HCPCS: 0241U; 36415; 71045; 80048; 80053; 82805; 82947; 83735; 83880; 84145; 84484; 85025; 85379; 87040; 93005; 93041; 93268; 93306; 94640; 94760; 94762; 96374; 96375; 99285; G0378; Q3014; J0282; J0456; J0696; J1817; J1940; J2919; A9270-GY